=== PATIENT | male | born 1970 | race Caucasian/White ===

== ENCOUNTER → 2018-02-11 | Day surgery (SDC) | payer OTHER, SELFPAY | END | disposition home or self-care (01) | PROVIDERS: Visit Provider Orthopaedic Surgery | DX: M50.222 Other cervical disc displacement at C5-C6 level (principal); M48.02 Spinal stenosis, cervical region; S16.1XXA Strain of muscle, fascia and tendon at neck level, initial encounter; W22.8XXA Striking against or struck by other objects, initial encounter; I10 Essential (primary) hypertension; J45.909 Unspecified asthma, uncomplicated | CPT/HCPCS: 22856; 72040; 76001; C1776; J0330; J0690; J1100; J1170; J2250; J2270; J2405; J2704; J3010 ==

== ENCOUNTER → 2018-08-25 15:19 | Outpatient (REF) | payer OTHER, MEDICAID, SELFPAY ==
[2018-08-25 15:40] LABS: Influenza A and B by PCR Rapid Negative (Negative)
== END ==
LOC: LAB 15:19
PROVIDERS: Visit Provider Family Medicine
DX: R11.0 Nausea (principal)
CPT/HCPCS: 87400

== ENCOUNTER → 2018-09-28 11:34 | Outpatient (CLI) | payer OTHER, MEDICAID, SELFPAY ==
--- NOTE | 2018-09-28 | DI.CT.S_ITS ---
PROCEDURE: CT CERVICAL SPINE WO CON INDICATIONS: Posterior neck and left shoulder pain TECHNIQUE: Noncontrast 3 mm thick sections acquired from the skull base to the T4 level. Sagittal and coronal reformats were then constructed. For radiation dose reduction, the following was used: automated exposure control, adjustment of mA and/or kV according to patient size. COMPARISON: [facility], CT, C-SPINE WITHOUT CONTRAST, 05/12/2017, 13:55. [facility] [place], CR, XR CERVICAL SPINE 2 OR 3 VIEWS, 09/22/2018, 8:31. FINDINGS: Image quality: Excellent. Bones: No fractures or dislocations. There is straightening of normal cervical spine curvature. Visualized superior ribs are intact. Postsurgical changes compatible C5-C6 intervertebral disc prosthesis placement noted. C5-C6 prosthetic disc is intact and stable in position. No lucencies are identified at the bone hardware interface. Mild to moderate C4-C5 degenerative disc changes are noted. Spinal canal is normal caliber. No neural foraminal narrowing. No definite neural impingement. Soft tissues: Prevertebral soft tissues are normal in thickness. No paravertebral hematomas. No apical pneumothoraces. IMPRESSION: 1. Status post C5-C6 disc replacement surgery. 2. Mild to moderate C4-C5 degenerative disc disease. 3. No central canal narrowing. 4. No neural foraminal narrowing. 5. No definite neural impingement. Dictated by: Yina Cota MD, PhD on 09/28/2018 at 15:16 Approved by: Yina Cota MD, PhD on 09/28/2018 at 15:22
== END ==
PROVIDERS: Visit Provider Orthopaedic Surgery
DX: M50.121 Cervical disc disorder at C4-C5 level with radiculopathy (principal); M25.512 Pain in left shoulder
CPT/HCPCS: 72125

== ENCOUNTER → 2018-09-29 09:42 | Outpatient (CLI) | payer OTHER, MEDICAID, SELFPAY ==
--- NOTE | 2018-09-29 | DI.RAD.S_ITS ---
PROCEDURE: XR CHEST 2V INDICATIONS: CHRONIC COUGH TECHNIQUE: 2 views of the chest were acquired. COMPARISON: [facility], , CHEST 1 VIEW, 06/25/2008, 17:27. FINDINGS: Surgical changes and devices: Intervertebral spacer in lower cervical spine is seen new since previous study. Lungs and pleura: No pleural effusions or pneumothorax. Lungs are clear. Mediastinum: Mediastinal contours are normal. Heart size is enlarged. Bones and chest wall: No suspicious bony abnormalities. Soft tissues appear unremarkable. IMPRESSION: No acute cardiopulmonary pathology. Dictated by: Alexander Andino M.D. on 09/29/2018 at 11:39 Approved by: Alexander Andino M.D. on 09/29/2018 at 11:40
== END ==
PROVIDERS: Visit Provider Family Medicine
DX: R05 Cough (principal)
CPT/HCPCS: 71046

== ENCOUNTER 2018-10-04 12:34 | Emergency (ER) | payer OTHER, MEDICAID, SELFPAY ==
[2018-10-04 13:05] VITALS: BP 158/100; PULSE 90; RESP 14; TEMP 36.4; O2SAT 97
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
[2018-10-04] MEDS: MORPHINE 4 MG/ML INJ SUBCUT (14:58)
[2018-10-04 15:20] VITALS: BP 151/88; PULSE 84; RESP 18; O2SAT 95
[2018-10-04] MEDS: HYDROCODONE/ACET 5/325 TABLET 2 TAB PO (16:01)
[2018-10-04 16:41] VITALS: BP 158/92; PULSE 79; RESP 14; O2SAT 98
== END 2018-10-04 16:41 | disposition home or self-care (01) ==
PROVIDERS: Emergency Provider Emergency Medicine
DX: S02.32XA Fracture of orbital floor, left side, initial encounter for closed fracture (principal); Y04.0XXA Assault by unarmed brawl or fight, initial encounter
CPT/HCPCS: 70450; 70486; 71046; 99282; 99284; J2270

== ENCOUNTER 2018-11-15 13:22 | Day surgery (SDC) | payer OTHER, MEDICAID, SELFPAY ==
[2018-10-01 08:27] VITALS: BMI 29.5
[2018-11-15] VITALS (11 sets, daily range): BP systolic 132–167; BP diastolic 81–107; PULSE 76–95; RESP 12–20; TEMP 36.2–36.8; O2SAT 90–99; BMI 29.8
[2018-11-15] MEDS: LACTATED RINGERS 1,000 ML 42 ML IV (14:00)
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
[2018-11-15] MEDS: fentaNYL 100 MCG/2 ML INJ 50 MCG IV (14:54)
[2018-11-15] MEDS: MIDAZOLAM 2 MG/2 ML VIAL 1 MG IV (14:54)
--- NOTE | 2018-11-15 15:25 | SUR.PREOP ---
Block start time [1502] . Monitoring initiated and maintained throughout procedure. Oxygen and medications given per anesthesiologist instructions. Patient remained stable throughout procedure, no adverse reactions noted. Block end time [1516]. patient at bedside during procedure. Transferred to OR via stretcher at 1524. handoff report given to Víctor Yung RN by Cathi Gray RN
[2018-11-15] MEDS: CEFAZOLIN 2 GM/100 ML FROZ.PIGGY IV (15:29)
[2018-11-15] MEDS: SODIUM CHLORIDE IRRIG SOLUTION 3,000 ML, EPINEPHrine 1 MG IRR (15:59)
[2018-11-15] MEDS: BUPIVACAINE 0.5% W/ EPI (PF) VIAL 30 ML INJ (16:02)
--- NOTE | 2018-11-15 16:44 | PM.OP.1 ---
Operative Date/Time/Diagnoses Date of procedure: 11/15/18 Time of procedure: 16:44 Pre-op diagnosis: Left shoulder labral tear with cyst formation Post-op diagnosis: same Procedure & Clinicians Procedure: 1. Left shoulder arthroscopic labral repair 2. Suprascapular nerve block by surgeon for postoperative pain control Same procedure as scheduled: Yes Indications: The patient is a 47-year-old gentleman who was injured at work when a ?story pole? fell against his shoulder and neck. He has had persistent left shoulder pain despite his neck issues being addressed by appropriate intervention by Dr. Blair. His MRI shows an inferior labral tear with paralabral cyst formation. After failure of nonoperative management he has requested surgical intervention. The risks benefits and alternatives of surgery were discussed with him. These risks included but were not limited to: Failure to improve either pain or function, infection, nerve damage particularly to the axillary nerve, stiffness, deep venous thrombosis, pulmonary embolism, stroke, myocardial infarction, permanent paralysis and . Surgeon: Jono Alfonso [employer] Consultant: Dior Gooden Click Yes if Unassisted: No Anesthesia Type: General, Peripheral nerve block and Local Operative Notes Findings: 1. Glenohumeral cartilage with minimal fraying of the central portion of the glenoid. 2. Glenoid labrum with separation in the inferior portion between 5 and 7:00 a.m. going around the inferior aspect of the glenoid 3. Intact glenohumeral ligament 4. Intact subscapularis 5. Intact biceps 6. Intact supraspinatus 7. Intact infraspinatus 8. Normal appearing axillary pouch 9. Examination under anesthesia notable for normal range of motion and no evidence for pathologic laxity. Closure Type: primary Specimen(s): none sent Implants & Drains: Two Arthrex Knotless SutureTak Peek anchors. Applied: implant(s) Estimated Blood Loss (mL): 5 Blood products transfused: none Procedure in detail: The patient was seen in the preoperative area where he identified the left shoulder as the operative site and renewed his consent. The left shoulder was marked with my initials. He received preoperative antibiotics and underwent an interscalene block. He was taken to the operating room and placed on the operating room table in the supine position. His shoulders were examined under anesthesia with result given above. During the exam under anesthesia his left shoulder was twitching quite remarkably and therefore a ventrally an additional suprascapular nerve block was performed due to the possibility that the interscalene block was not working. This was performed with 10 mL 0.5% Marcaine after prepping the shoulder. After his exam under anesthesia the patient was placed in the right lateral decubitus position with an axillary roll and padding for all pressure points. He was stabilized in this position using the stoner bag. The left arm was prepared for the fingertips to the base the neck with ChloraPrep in the usual fashion and placed in 10 lb of balanced skin suspension. Subcutaneous landmarks were outlined on the skin with a marking pen and the suprascapular nerve block performed. Portal sites were selected and posterior portal created for the arthroscope. Diagnostic arthroscopy ensued with the result given above. An anterior superior portal was created for the 5.5 mm cannula. A probe was placed through this cannula and the anterior labral tear probed and proven to be pathologic. A liberator knife was then inserted and used to mobilize the labrum. A shaver was used to abrade the anterior rim of the glenoid to bleeding bone. An anterior inferior portal was created for the 8.5 mm working cannula. A single anchor was placed in the 7:00 position and the knotless suture placed around the labrum using a suture shuttle technique and used to tighten the repair. This was confirmed as being satisfactory using the probe. The anterior superior portal and the posterior portal were then swapped using switching sticks and the 8.5 mm cannula was placed through the posterior portal. The posterior portion of the tear was prepared using the liberator knife and the shaver. Percutaneous technique was used to place an anchor at the 5 o'clock position posterior inferiorly. A suture shuttle technique was used to pass this suture and it was tightened to complete the repair. This appeared to provide appropriate re-positioning of the labrum against the glenoid rim. All arthroscopic equipment was then removed. The wounds were closed with 4 0 Monocryl and Steri-Strips. Subcutaneous tissues were infiltrated with additional 0.5% Marcaine for postoperative pain control. Dressings of sterile 4x4s, an ABD and an adhesive dressing were applied followed by sling and the patient was transported to the recovery room in good condition having tolerated the procedure well. Complications: none Condition: stable Disposition: PACU Plan for aftercare: The patient will be maintained on a standard [employer] repair protocol. He will remain in a sling except for hygiene until his 1st follow-up in 2 weeks.
[2018-11-15] MEDS: HYDROMORPHONE 2 MG INJ 0.5 MG IV ×4 (17:07→17:41)
[2018-11-15] MEDS: LORazepam 2 MG/ML SYRINGE 0.5 MG IV (17:12)
[2018-11-15] MEDS: PREGABALIN 75 MG CAPSULE PO (17:19)
[2018-11-15] MEDS: ACETAMINOPHEN IV 1,000 MG/100 ML VIAL 400 MG IV (17:23)
[2018-11-15] MEDS: OXYCODONE IR 5 MG TABLET PO (17:45)
[2018-11-15] MEDS: hydrOXYzine pamoate 25 MG CAPSULE PO (18:12)
--- NOTE | 2018-11-15 18:43 | SUR.PHASEII ---
Pt sat up on the side of the bed. Vomited 100mls light green fluid. Pt expressed nausea resolved. Stood to void, dressed with assistance from spouse. Sling placed for comfort. Deana sarah.
== END 2018-11-15 18:32 | disposition home or self-care (01) ==
PROVIDERS: PCP Family Medicine; Visit Provider Orthopaedic Surgery
PROC: 0RQK4ZZ Repair Left Shoulder Joint, Percutaneous Endoscopic Approach (ICD-10-PCS; CPT 29807; principal; 2018-11-15 15:15)
DX: S43.432A Superior glenoid labrum lesion of left shoulder, initial encounter (principal); G89.18 Other acute postprocedural pain; G47.33 Obstructive sleep apnea (adult) (pediatric); J45.909 Unspecified asthma, uncomplicated; I10 Essential (primary) hypertension; W20.8XXS Other cause of strike by thrown, projected or falling object, sequela
CPT/HCPCS: 29806; 64415; J0131; J0171; J0360; J0690; J1100; J1170; J2060; J2250; J2704; J3010

== ENCOUNTER 2019-04-18 16:45 | Outpatient (RCR) | payer OTHER, MEDICAID, SELFPAY ==
--- NOTE | 2018-12-01 15:00 | PT.OIE ---
Current Diagnoses Superior glenoid labrum lesion of left shoulder, subsequent encounter (12/01/18) Past Medical History (Last Updated 11/08/18 @ 15:13 by Kristin Broussard RN) Anxiety (Acute) Concussion (Acute) Difficult airway for intubation (Acute) GERD (gastroesophageal reflux disease) (Acute) Generalized headaches (Acute) Hand fracture (Acute) Head trauma (Acute ~10/04/18) Hearing impaired (Acute) Jaw fracture (Acute ~2006) Numbness (Acute) AVILA (obstructive sleep apnea) (Acute) Tear of left glenoid labrum (Acute) Past Surgical History (Last Updated 10/01/18 @ 08:36 by Rosita Ferguson RN) Hx of cervical discectomy (Acute 02/13/18) Provider Visit Care Team Role Provider Type Mau Hood MD Primary Care Provider Physician Specialty: Family Practice Address: [address] [place] [address], [id number] Email: Jono Alfonso MD Attending Provider Physician Specialty: Orthopedic Surgery Address: [address] [place] [address], [phone] Email: [email or web address] Physical Therapy Initial Evaluation PT-OP-A Visit Information Start: 12/01/18 10:07 Freq: Status: Active Protocol: Document 12/01/18 10:09 ZOILA (Rec: 12/01/18 10:26 ZOILA [id number]) Out-Patient Physical Therapy Visit Information Visit Information Visit Type Initial Evaluation Visit Start Time 08:15 Visit Stop Time 08:55 Total Visit Minutes 40 Visit Number 1 Evaluation Information Evaluation Date 12/01/18 Precautions Precautions Post labral reconstruction dr. Alfonso exercises protocol PT-OP-B Current Condition Start: 12/01/18 10:07 Freq: Status: Active Protocol: Document 12/01/18 10:09 EA (Rec: 12/01/18 10:26 EA [id number]) Current Condition History of Current Condition Onset Date S/P 11/15/18 Left shoulder arthroscopic labral tear Current Complaints Left shoulder pain and weakness History of Current Condition Patient had work injury in 2016 when 2x/4 wood fell and hit his left shoulder and neck . Patient underwent cervical surgery on April/2017 due to shoulder numbness and weakness per patient. Pt reports underwent formal PT after that surgery and went well. Pt today is 2 weeks post op L shoulder labral tear arthroscopic repair. Pt is has dr. Alfonso exercises protocol to follow. Prior Treatments and Tests S/P left shoulder arthroscopic labral repair 11/15/18 Future Testing and Treatments Planned None identified Treatment Goals Patient/Caregiver Goals Patient wants to get back to previous function; states I don't assume I would get back to previous level, but at least not disable. 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- Recreation/Hobbies No limitation 1 1/2 years ago Current Functional Impairments (Reported) Functional Limitations- ADL's Independent; unable to drive at this time Functional Limitations- Mobility/Gait Indep Functional Limitations- Work/School On disability since the last neck/shoulder injury 2016 Functional Limitations- Recreation/ Unable Hobbies PT-OP-C Subjective Start: 12/01/18 10:07 Freq: Status: Active Protocol: Document 12/01/18 10:09 EA (Rec: 12/01/18 10:26 EA [id number]) OP-PT Subjective Patient Comments Patient Comments Patient wants to get back to previous function; states I don't assume I would get back to previous level, but at least not disable. [ End ] Patient Questionnaires Quick Dash- Upper Extremity Quick Dash UE Score 80 Quick Dash UE Impairment 80 to 99% Impaired (Score 80- 99) OP-PT Pain Assessment Location Left Anterior Proximal Shoulder Intensity 7 Scale Used Numeric (1 - 10) Description Tender Tightness Throbbing Frequency Frequent Pain Aggravating Factors Changing Position ADL's Activity Other Pain Alleviating Factors Oxycodone Home Pain Medication Use Pain Medications Used Yes Home Pain Medication Frequency Oxycodone Pain Behaviors Pain Behaviors Guarding Wincing PT-OP-E Functional Tests Start: 12/01/18 10:07 Freq: Status: Active Protocol: Document 12/01/18 10:29 EA (Rec: 12/01/18 13:00 EA [id number]) Functional Tests Garlandey's Scratch Test Action 1: The subject is instructed to touch the opposite shoulder with his/her hand. This motion checks Glenohumeral adduction, internal rotation , horizontal adduction and scapular protraction Action 2: The subject is instructed to place his/her arm overhead and reach behind the neck to touch his/her upper back. This motion checks Glenohumeral abduction, external rotation and scapular upward rotation and elevation. Action 3: The subject puts his/her hand on the lower back and reaches upward as far as possible. This motion checks glenohumeral adduction, internal rotation and scapular retraction with downward rotation Action 1- Left Unable Action 1- Right behind opposite shoulder Action 2- Left unable Action 2- Right T1 Action 3- Left Unable Action 3- Right T9 PT-OP-F Manual Assessment Start: 12/01/18 10:07 Freq: Status: Active Protocol: Document 12/01/18 10:29 EA (Rec: 12/01/18 13:00 EA [id number]) Manual Assessments Soft Tissue Assessment Soft Tissue Mobility Assessment unable to assess due to muscle guarding and pain Joint Mobility Assessment Joint Mobility Assessment Unable to assess due to muscle guarding PT-OP-J Posture/Palpation/Skin Start: 12/01/18 10:07 Freq: Status: Active Protocol: Document 12/01/18 10:29 EA (Rec: 12/01/18 13:00 EA [id number]) Posture Evaluation Position Standing Evaluation View post/lat Head/C-Spine Posture Neutral Position T-Spine Posture Neutral Shoulder Posture Neutral Scapula Posture (L) Neutral (L) Protracted Arm Posture (L) Neutral (R) Neutral Palpation Assessment Location One Palpation Location Left Anterior upper and lower, posterior lower shoulder Palpation Findings Soft Tissue Tightness Muscle Guarding Tenderness Palpation Details Grade 3/4 tenderness with muscle guarding PT-OP-K Range of Motion Start: 12/01/18 10:07 Freq: Status: Active Protocol: Document 12/01/18 10:29 EA (Rec: 12/01/18 13:00 EA [id number]) Shoulder Goniometric Range of Motion Shoulder Measured in Degrees Left Passive Shoulder ROM WFL Yes Testing Position supine sitting Flexion 25 Extension 40 Abduction 30 Right Active Shoulder ROM WFL Yes Shoulder ROM Limitations Shoulder ROM Limitations Soft Tissue Tightness Pain Comments Other shoulder ROM is not tested due to healing pre- cautions Elbow/Forearm Range of Motion Elbow/Forearm Measured in Degrees Left Active Elbow/Forearm ROM WFL Yes Wrist Goniometric Range of Motion Wrist Measured in Degrees Left Wrist ROM WFL Yes PT-OP-M Strength Start: 12/01/18 10:07 Freq: Status: Active Protocol: Document 12/01/18 10:29 EA (Rec: 12/01/18 13:00 EA [id number]) Scapula Strength Scapula Manual Muscle Testing Left Elevation (C4) 3+ Fair+ Adduction 3+ Fair+ Abduction 3+ Fair+ Depression 3+ Fair+ Reason Not Measured Orthopedic Precautions Pain Comments Pain increased with higher resistance Shoulder Strength Shoulder Manual Muscle Testing Right Reason Not Measured WFL Left Reason Not Measured Orthopedic Precautions PT-OP-Q Treatments Start: 12/01/18 10:07 Freq: Status: Active Protocol: Document 12/01/18 10:29 EA (Rec: 12/01/18 13:00 EA [id number]) Self-Care/Home Management Treatment Education Patient Education Home Exercise Program Joint Protection Pain Management Safety Other Education Advised pain control to prevent high BP elevation. Explained exercise progression throughout treatment course ( Surgeon's labral treatment protocol). PT-OP-T Assessment and Plan Start: 12/01/18 10:07 Freq: Status: Active Protocol: Document 12/01/18 10:29 EA (Rec: 12/01/18 13:00 EA [id number]) Physical Therapy Assessment Rehab Potential Rehabilitation Potential Fair Evaluation Complexity Number of Personal Factors/Comorbidities 1-2 Number of Body Systems Impaired 3 Clinical Presentation at Evaluation Evolving Impairments Impairments Activity Tolerance Pain Posture ROM Soft Tissue Mobility Strength Goals Four Impairment Impaired left shoulder strength Prison Goal (LTG) Patient will have functional ADL strength 3 plus -4/5 with pain rated of 2/10 LTG Duration 5 wks Three Impairment Quick Dash score of 80 Prison Goal (LTG) Patient will have quick Dash score of less than 40 LTG Duration 6 wks Two Impairment Impaired shoulder ROM Burn Nurse Goal (LTG) Patient will reach functional shoulder ROM to enhance shoulder active mobility LTG Duration 4 wks One Impairment NO HEP in place Burn Nurse Goal (LTG) Patient will perform HEP independent and safe. LTG Duration 3 wks. Assessment Summary Assessment Patient is a s/p 11/15/2018 left arthroscopic labral tear repair with no secondary healing complication. Today patient exhibited quite moderate muscle guarding with pain increased through PROM of GH and AROM of scapular and elbow joints. Grade 3/4 tenderness noted on both anterior/ posterior left shoulder but no indication of active inflammation. Patient is quite apprehended throughout objective measurement and as well during HEP demonstration. BP is quite elevated 160/110 mmhg pre- and post evaluation which I recommended to see his primary doctor to address the issue prior to next PT appointment. ADL's and other functional L arm movement is limited at this time and therefore patient requires skilled PT for patient to return to functional level safely. Physical Therapy Plan Frequency and Duration Frequency of Treatment 2x/Week Duration of Treatment 8 wks Plan of Care Start Date 12/01/18 Plan of Care End Date 01/26/19 Therapeutic Interventions Therapeutic Interventions Home Exercise Program Joint Mobilizations Manual Therapy Patient/Caregiver Education Self-Care/Home Management Soft Tissue Mobilization Taping Therapeutic Exercises Modalities Cold Pack/Ice Massage Electric Stimulation Ultrasound Next Visit Focus/Plan Next Note Type Treatment Note Next Visit Plan Please follow Surgeon's shoulder labral repair protocol attached on file(PROM Increased ROM, decreased pain )
--- NOTE | 2018-12-01 15:00 | PT.OPPOC ---
Current Diagnoses Superior glenoid labrum lesion of left shoulder, subsequent encounter (12/01/18) Provider Visit Care Team Role Provider Type Mau Hood MD Primary Care Provider Physician Specialty: Family Practice Address: [address] [place] [address], [id number] Email: Jono Alfonso MD Attending Provider Physician Specialty: Orthopedic Surgery Address: [address] [place] [address], [id number] Email: [email or web address] Plan Of Care PT-OP-T Assessment and Plan Start: 12/01/18 10:07 Freq: Status: Active Protocol: Document 12/01/18 10:29 ZOILA (Rec: 12/01/18 13:00 EA [id number]) Physical Therapy Assessment Rehab Potential Rehabilitation Potential Fair Evaluation Complexity Number of Personal Factors/Comorbidities 1-2 Number of Body Systems Impaired 3 Clinical Presentation at Evaluation Evolving Impairments Impairments Activity Tolerance Pain Posture ROM Soft Tissue Mobility Strength Goals Four Impairment Impaired left shoulder strength Child & Adolescent Psychiatrist Goal (LTG) Patient will have functional ADL strength 3 plus to -4/5 with pain rated of 2/10 LTG Duration 5 wks Three Impairment Quick Dash score of 80 Child & Adolescent Psychiatrist Goal (LTG) Patient will have quick Dash score of less than 40 LTG Duration 6 wks Two Impairment Impaired shoulder ROM Shelter Goal (LTG) Patient will reach functional shoulder ROM to enhance shoulder active mobility LTG Duration 4 wks One Impairment NO HEP in place Child & Adolescent Psychiatrist Goal (LTG) Patient will perform HEP independent and safe. LTG Duration 3 wks. Assessment Summary Assessment Patient is a s/p 11/15/2018 left arthroscopic labral tear repair with no secondary healing complication. Today patient exhibited quite moderate muscle guarding with pain increased through PROM of GH and AROM of scapular and elbow joints. Grade 3/4 tenderness noted on both anterior/posterior left shoulder but no indication of active inflammation. Patient is quite apprehended throughout objective measurement and as well during HEP demonstration. BP is quite elevated 160/110 mmhg pre- and post eval which I recommended to see his primary doctor to address the issue prior to next PT appointment. ADL's and other functional L arm movement is limited at this time and therefore patient requires skilled PT for patient to return to functional level safely. Physical Therapy Plan Frequency and Duration Frequency of Treatment 2x/Week Duration of Treatment 8 wks Plan of Care Start Date 12/01/18 Plan of Care End Date 01/26/19 Therapeutic Interventions Therapeutic Interventions Home Exercise Program Joint Mobilizations Manual Therapy Patient/Caregiver Education Self-Care/Home Management Soft Tissue Mobilization Taping Therapeutic Exercises Modalities Cold Pack/Ice Massage Electric Stimulation Ultrasound Next Visit Focus/Plan Next Note Type Treatment Note Next Visit Plan Please follow Surgeon's shoulder labral repair protocol attached on file(PROM Increased ROM, decrease pain) Plan of Care Dates Plan of Care Start Date 12/01/18 Plan of Care End Date 01/26/19 Please Sign and Return: I have reviewed this Plan of Care and certify that the skilled therapy services above are required to meet the patient?s needs. Physician Signature Date Printed Name and Credentials Clinical Instructor Signature Printed Name and Credentials
--- NOTE | 2018-12-07 11:04 | PT.OTN ---
Current Diagnoses Superior glenoid labrum lesion of left shoulder, subsequent encounter (12/07/18) Physical Therapy Treatment Note PT-OP-A Visit Information Start: 12/01/18 10:07 Freq: Status: Active Protocol: Document 12/07/18 10:45 EA (Rec: 12/07/18 11:04 EA [id number]) Out-Patient Physical Therapy Visit Information Visit Information Visit Type Treatment Note Visit Start Time 10:30 Visit Stop Time 11:10 Total Visit Minutes 38 Visit Number 2 PT-OP-B Current Condition Start: 12/01/18 10:07 Freq: Status: Active Protocol: Document 12/01/18 10:09 EA (Rec: 12/01/18 10:26 EA [id number]) Current Condition History of Current Condition Onset Date S/P 11/15/18 Left shoulder arthroscopic labral tear Current Complaints Left shoulder pain and weakness History of Current Condition Patient had work injury in 2016 when 2x/4 wood fell and hit his left shoulder and neck . Patient underwent cervical surgery on April/2017 due to shoulder numbness and weakness per patient. Pt reports underwent formal PT after that surgery and went well. Pt today is 2 weeks post op L shoulder labral tear arthroscopic repair. Pt is has dr. Alfonso exercises protocol to follow. Prior Treatments and Tests S/P left shoulder arthroscopic labral repair 11/15/18 Future Testing and Treatments Planned None identified Treatment Goals Patient/Caregiver Goals Patient wants to get back to previous function; states I don't assume I would get back to previous level, but at least not disable. 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- Recreation/Hobbies No limitation 1 1/2 years ago Current Functional Impairments (Reported) Functional Limitations- ADL's Independent; unable to drive at this time Functional Limitations- Mobility/Gait Indep Functional Limitations- Work/School On disability since the last neck/shoulder injury 2016 Functional Limitations- Recreation/ Unable Hobbies PT-OP-C Subjective Start: 12/01/18 10:07 Freq: Status: Active Protocol: Document 12/07/18 10:45 EA (Rec: 12/07/18 11:04 EA [id number]) OP-PT Subjective Patient Comments Patient Comments Pt reeived ambulating with sling on; states he has been compliant with HEP and went to his doctor for HTN pills. Patient reports he droved today and out of sling. PT-OP-E Functional Tests Start: 12/01/18 10:07 Freq: Status: Active Protocol: Document 12/01/18 10:29 EA (Rec: 12/01/18 13:00 EA [id number]) Functional Tests Apley's Scratch Test Action 1: The subject is instructed to touch the opposite shoulder with his/her hand. This motion checks Glenohumeral adduction, internal rotation , horizontal adduction and scapular protraction Action 2: The subject is instructed to place his/her arm overhead and reach behind the neck to touch his/her upper back. This motion checks Glenohumeral abduction, external rotation and scapular upward rotation and elevation. Action 3: The subject puts his/her hand on the lower back and reaches upward as far as possible. This motion checks glenohumeral adduction, internal rotation and scapular retraction with downward rotation Action 1- Left Unable Action 1- Right behind opposite shoulder Action 2- Left unable Action 2- Right T1 Action 3- Left Unable Action 3- Right T9 PT-OP-F Manual Assessment Start: 12/01/18 10:07 Freq: Status: Active Protocol: Document 12/01/18 10:29 EA (Rec: 12/01/18 13:00 EA [id number]) Manual Assessments Soft Tissue Assessment Soft Tissue Mobility Assessment unable to assess due to muscle guarding and pain Joint Mobility Assessment Joint Mobility Assessment Unable to assess due to muscle guarding PT-OP-J Posture/Palpation/Skin Start: 12/01/18 10:07 Freq: Status: Active Protocol: Document 12/01/18 10:29 EA (Rec: 12/01/18 13:00 EA [id number]) Posture Evaluation Position Standing Evaluation View post/lat Head/C-Spine Posture Neutral Position T-Spine Posture Neutral Shoulder Posture Neutral Scapula Posture (L) Neutral (L) Protracted Arm Posture (L) Neutral (R) Neutral Palpation Assessment Location One Palpation Location Left Anterior upper and lower, posterior lower shoulder Palpation Findings Soft Tissue Tightness Muscle Guarding Tenderness Palpation Details Grade 3/4 tenderness with muscle guarding PT-OP-K Range of Motion Start: 12/01/18 10:07 Freq: Status: Active Protocol: Document 12/01/18 10:29 EA (Rec: 12/01/18 13:00 EA [id number]) Shoulder Goniometric Range of Motion Shoulder Measured in Degrees Left Passive Shoulder ROM WFL Yes Testing Position supine sitting Flexion 25 Extension 40 Abduction 30 Right Active Shoulder ROM WFL Yes Shoulder ROM Limitations Shoulder ROM Limitations Soft Tissue Tightness Pain Comments Other shoulder ROM is not tested due to healing pre- cautions Elbow/Forearm Range of Motion Elbow/Forearm Measured in Degrees Left Active Elbow/Forearm ROM WFL Yes Wrist Goniometric Range of Motion Wrist Measured in Degrees Left Wrist ROM WFL Yes PT-OP-M Strength Start: 12/01/18 10:07 Freq: Status: Active Protocol: Document 12/01/18 10:29 EA (Rec: 12/01/18 13:00 EA [id number]) Scapula Strength Scapula Manual Muscle Testing Left Elevation (C4) 3+ Fair+ Adduction 3+ Fair+ Abduction 3+ Fair+ Depression 3+ Fair+ Reason Not Measured Orthopedic Precautions Pain Comments Pain increased with higher resistance Shoulder Strength Shoulder Manual Muscle Testing Right Reason Not Measured WFL Left Reason Not Measured Orthopedic Precautions PT-OP-Q Treatments Start: 12/01/18 10:07 Freq: Status: Active Protocol: Document 12/07/18 10:45 EA (Rec: 12/07/18 11:04 EA [id number]) Therapeutic Exercises Supine Exercises 2 Supine Exercise Name Shoulder gentle PROM: horiz ABD/ADD Reps/Minutes x 10 reps Comments pain free range 1 Supine Exercise Name Shoulder gentle PROM: flexion and abduction Reps/Minutes x 10 reps Comments pain free range Sitting Exercises 4 Sitting Exercise Name Elbow: F/E and pronation supination Reps/Minutes x 15 reps 3 Sitting Exercise Name Scap retraction Reps/Minutes x 10 reps 2 Sitting Exercise Name scap protraction Reps/Minutes x 10 reps 1 Sitting Exercise Name Sitted shoulder scapular elevation Reps/Minutes 10 reps Manual Therapy Treatment Soft Tissue Mobilization 1 Body Location left shoulder Mobilization Type Cross-Friction Myofascial Release Rolling Intensity/Depth Superficial Body Position Supine Comments Patient is hypersensitive. Facial grimace noted with light intensity PT-OP-R Modalities Start: 12/01/18 10:07 Freq: Status: Active Protocol: Document 12/07/18 10:45 EA (Rec: 12/07/18 11:04 EA [id number]) Hot Pack/Cold Pack Treatment Cold Pack Location left shoulder Treatment Duration (minutes) 15 Patient Tolerance Good PT-OP-T Assessment and Plan Start: 12/01/18 10:07 Freq: Status: Active Protocol: Document 12/07/18 10:45 EA (Rec: 12/07/18 11:04 EA [id number]) Physical Therapy Assessment Assessment Summary Assessment Patient unable to tolerate PROM more than 10 reps and is shoulder guarded in all shoulder F/Abd PROM. Facial grimace noted with occasional cramps even with elbow and scapular AROM. Patient not progressing well to recommended ROM at this time due to hypotolerance to pain. I recommended to take recommended pain medication prior to therapy to increase pain tolerance. BP were taken prior to session and is quite better (120/80) with HTN pills . Physical Therapy Plan Next Visit Focus/Plan Next Note Type Treatment Note
--- NOTE | 2018-12-09 12:05 | PT.OTN ---
Current Diagnoses Superior glenoid labrum lesion of left shoulder, subsequent encounter (12/09/18) Physical Therapy Treatment Note PT-OP-A Visit Information Start: 12/01/18 10:07 Freq: Status: Active Protocol: Document 12/09/18 10:22 EA (Rec: 12/09/18 10:30 EA [id number]) Out-Patient Physical Therapy Visit Information Visit Information Visit Type Treatment Note Visit Start Time 09:45 Visit Stop Time 10:30 Total Visit Minutes 45 Visit Number 3 PT-OP-B Current Condition Start: 12/01/18 10:07 Freq: Status: Active Protocol: Document 12/01/18 10:09 EA (Rec: 12/01/18 10:26 EA [id number]) Current Condition History of Current Condition Onset Date S/P 11/15/18 Left shoulder arthroscopic labral tear Current Complaints Left shoulder pain and weakness History of Current Condition Patient had work injury in 2016 when 2x/4 wood fell and hit his left shoulder and neck . Patient underwent cervical surgery on April/2017 due to shoulder numbness and weakness per patient. Pt reports underwent formal PT after that surgery and went well. Pt today is 2 weeks post op L shoulder labral tear arthroscopic repair. Pt is has dr. Alfonso exercises protocol to follow. Prior Treatments and Tests S/P left shoulder arthroscopic labral repair 11/15/18 Future Testing and Treatments Planned None identified Treatment Goals Patient/Caregiver Goals Patient wants to get back to previous function; states I don't assume I would get back to previous level, but at least not disable. 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- Recreation/Hobbies No limitation 1 1/2 years ago Current Functional Impairments (Reported) Functional Limitations- ADL's Independent; unable to drive at this time Functional Limitations- Mobility/Gait Indep Functional Limitations- Work/School On disability since the last neck/shoulder injury 2016 Functional Limitations- Recreation/ Unable Hobbies PT-OP-C Subjective Start: 12/01/18 10:07 Freq: Status: Active Protocol: Document 12/09/18 10:22 EA (Rec: 12/09/18 10:30 EA [id number]) OP-PT Subjective Patient Comments Patient Comments Pt reports compliant with HEP and out of sling except when sleeping and unfamiliar places /activities. Pt reports pain after manual PT on last session and forced him to take pain meds. PT-OP-E Functional Tests Start: 12/01/18 10:07 Freq: Status: Active Protocol: Document 12/01/18 10:29 EA (Rec: 12/01/18 13:00 EA [id number]) Functional Tests Apley's Scratch Test Action 1: The subject is instructed to touch the opposite shoulder with his/her hand. This motion checks Glenohumeral adduction, internal rotation , horizontal adduction and scapular protraction Action 2: The subject is instructed to place his/her arm overhead and reach behind the neck to touch his/her upper back. This motion checks Glenohumeral abduction, external rotation and scapular upward rotation and elevation. Action 3: The subject puts his/her hand on the lower back and reaches upward as far as possible. This motion checks glenohumeral adduction, internal rotation and scapular retraction with downward rotation Action 1- Left Unable Action 1- Right behind opposite shoulder Action 2- Left unable Action 2- Right T1 Action 3- Left Unable Action 3- Right T9 PT-OP-F Manual Assessment Start: 12/01/18 10:07 Freq: Status: Active Protocol: Document 12/01/18 10:29 EA (Rec: 12/01/18 13:00 EA [id number]) Manual Assessments Soft Tissue Assessment Soft Tissue Mobility Assessment unable to assess due to muscle guarding and pain Joint Mobility Assessment Joint Mobility Assessment Unable to assess due to muscle guarding PT-OP-J Posture/Palpation/Skin Start: 12/01/18 10:07 Freq: Status: Active Protocol: Document 12/01/18 10:29 EA (Rec: 12/01/18 13:00 EA [id number]) Posture Evaluation Position Standing Evaluation View post/lat Head/C-Spine Posture Neutral Position T-Spine Posture Neutral Shoulder Posture Neutral Scapula Posture (L) Neutral (L) Protracted Arm Posture (L) Neutral (R) Neutral Palpation Assessment Location One Palpation Location Left Anterior upper and lower, posterior lower shoulder Palpation Findings Soft Tissue Tightness Muscle Guarding Tenderness Palpation Details Grade 3/4 tenderness with muscle guarding PT-OP-K Range of Motion Start: 12/01/18 10:07 Freq: Status: Active Protocol: Document 12/01/18 10:29 EA (Rec: 12/01/18 13:00 EA [id number]) Shoulder Goniometric Range of Motion Shoulder Measured in Degrees Left Passive Shoulder ROM WFL Yes Testing Position supine sitting Flexion 25 Extension 40 Abduction 30 Right Active Shoulder ROM WFL Yes Shoulder ROM Limitations Shoulder ROM Limitations Soft Tissue Tightness Pain Comments Other shoulder ROM is not tested due to healing pre- cautions Elbow/Forearm Range of Motion Elbow/Forearm Measured in Degrees Left Active Elbow/Forearm ROM WFL Yes Wrist Goniometric Range of Motion Wrist Measured in Degrees Left Wrist ROM WFL Yes PT-OP-M Strength Start: 12/01/18 10:07 Freq: Status: Active Protocol: Document 12/01/18 10:29 EA (Rec: 12/01/18 13:00 EA [id number]) Scapula Strength Scapula Manual Muscle Testing Left Elevation (C4) 3+ Fair+ Adduction 3+ Fair+ Abduction 3+ Fair+ Depression 3+ Fair+ Reason Not Measured Orthopedic Precautions Pain Comments Pain increased with higher resistance Shoulder Strength Shoulder Manual Muscle Testing Right Reason Not Measured WFL Left Reason Not Measured Orthopedic Precautions PT-OP-Q Treatments Start: 12/01/18 10:07 Freq: Status: Active Protocol: Document 12/09/18 10:22 EA (Rec: 12/09/18 10:30 EA [id number]) Therapeutic Exercises Supine Exercises 4 Supine Exercise Name T-bar ABd Reps/Minutes x 15 reps x 2 Comments pain free range 3 Supine Exercise Name T-bar flexio Reps/Minutes x 15 reps x 2 Comments Pain free range 2 Supine Exercise Name Shoulder gentle PROM: horiz ABD/ADD Reps/Minutes x 10 reps Comments pain free range 1 Supine Exercise Name Shoulder gentle PROM: flexion and abduction Reps/Minutes x 10 reps Comments pain free range Sitting Exercises 4 Sitting Exercise Name Elbow: F/E and pronation supination Reps/Minutes x 15 reps 3 Sitting Exercise Name Scap retraction Reps/Minutes x 10 reps 2 Sitting Exercise Name scap protraction Reps/Minutes x 10 reps 1 Sitting Exercise Name Sitted shoulder scapular elevation Reps/Minutes 10 reps Standing Exercises 1 Standing Exercise Name Pnedulum exercise: F/EXT, side to side Reps/Minutes x 15 reps x 2 sets Comments 2 lbs wrist wght Self-Care/Home Management Treatment Education Patient Education Home Exercise Program Joint Protection Pain Management PT-OP-R Modalities Start: 12/01/18 10:07 Freq: Status: Active Protocol: Document 12/09/18 10:22 EA (Rec: 12/09/18 10:30 EA [id number]) Hot Pack/Cold Pack Treatment Cold Pack Location left shoulder Treatment Duration (minutes) 15 Patient Tolerance Good PT-OP-T Assessment and Plan Start: 12/01/18 10:07 Freq: Status: Active Protocol: Document 12/09/18 10:22 EA (Rec: 12/09/18 10:30 EA [id number]) Physical Therapy Assessment Assessment Summary Assessment Pt tolerated treatment with minor discomfort during AROM; requires cues not hold his breath and with pendulum exercises. Recommends new HEP exercises recieved and explained safety. Physical Therapy Plan Next Visit Focus/Plan Next Note Type Treatment Note Next Visit Plan progress according to protocol or as tolerated.
--- NOTE | 2018-12-13 10:28 | PT.OTN ---
Current Diagnoses Superior glenoid labrum lesion of left shoulder, subsequent encounter (12/13/18) Physical Therapy Treatment Note PT-OP-A Visit Information Start: 12/01/18 10:07 Freq: Status: Active Protocol: Document 12/13/18 10:12 EA (Rec: 12/13/18 10:21 EA [id number]) Out-Patient Physical Therapy Visit Information Visit Information Visit Type Treatment Note Visit Start Time 09:45 Visit Stop Time 10:33 Total Visit Minutes 48 Visit Number 3 PT-OP-B Current Condition Start: 12/01/18 10:07 Freq: Status: Active Protocol: Document 12/01/18 10:09 EA (Rec: 12/01/18 10:26 EA [id number]) Current Condition History of Current Condition Onset Date S/P 11/15/18 Left shoulder arthroscopic labral tear Current Complaints Left shoulder pain and weakness History of Current Condition Patient had work injury in 2016 when 2x/4 wood fell and hit his left shoulder and neck . Patient underwent cervical surgery on April/2017 due to shoulder numbness and weakness per patient. Pt reports underwent formal PT after that surgery and went well. Pt today is 2 weeks post op L shoulder labral tear arthroscopic repair. Pt is has dr. Alfonso exercises protocol to follow. Prior Treatments and Tests S/P left shoulder arthroscopic labral repair 11/15/18 Future Testing and Treatments Planned None identified Treatment Goals Patient/Caregiver Goals Patient wants to get back to previous function; states I don't assume I would get back to previous level, but at least not disable. 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- Recreation/Hobbies No limitation 1 1/2 years ago Current Functional Impairments (Reported) Functional Limitations- ADL's Independent; unable to drive at this time Functional Limitations- Mobility/Gait Indep Functional Limitations- Work/School On disability since the last neck/shoulder injury 2016 Functional Limitations- Recreation/ Unable Hobbies PT-OP-C Subjective Start: 12/01/18 10:07 Freq: Status: Active Protocol: Document 12/13/18 10:12 EA (Rec: 12/13/18 10:21 EA [id number]) OP-PT Subjective Patient Comments Patient Comments 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 PT-OP-E Functional Tests Start: 12/01/18 10:07 Freq: Status: Active Protocol: Document 12/01/18 10:29 EA (Rec: 12/01/18 13:00 EA [id number]) Functional Tests Apley's Scratch Test Action 1: The subject is instructed to touch the opposite shoulder with his/her hand. This motion checks Glenohumeral adduction, internal rotation , horizontal adduction and scapular protraction Action 2: The subject is instructed to place his/her arm overhead and reach behind the neck to touch his/her upper back. This motion checks Glenohumeral abduction, external rotation and scapular upward rotation and elevation. Action 3: The subject puts his/her hand on the lower back and reaches upward as far as possible. This motion checks glenohumeral adduction, internal rotation and scapular retraction with downward rotation Action 1- Left Unable Action 1- Right behind opposite shoulder Action 2- Left unable Action 2- Right T1 Action 3- Left Unable Action 3- Right T9 PT-OP-F Manual Assessment Start: 12/01/18 10:07 Freq: Status: Active Protocol: Document 12/01/18 10:29 EA (Rec: 12/01/18 13:00 EA [id number]) Manual Assessments Soft Tissue Assessment Soft Tissue Mobility Assessment unable to assess due to muscle guarding and pain Joint Mobility Assessment Joint Mobility Assessment Unable to assess due to muscle guarding PT-OP-J Posture/Palpation/Skin Start: 12/01/18 10:07 Freq: Status: Active Protocol: Document 12/01/18 10:29 EA (Rec: 12/01/18 13:00 EA [id number]) Posture Evaluation Position Standing Evaluation View post/lat Head/C-Spine Posture Neutral Position T-Spine Posture Neutral Shoulder Posture Neutral Scapula Posture (L) Neutral (L) Protracted Arm Posture (L) Neutral (R) Neutral Palpation Assessment Location One Palpation Location Left Anterior upper and lower, posterior lower shoulder Palpation Findings Soft Tissue Tightness Muscle Guarding Tenderness Palpation Details Grade 3/4 tenderness with muscle guarding PT-OP-K Range of Motion Start: 12/01/18 10:07 Freq: Status: Active Protocol: Document 12/01/18 10:29 EA (Rec: 12/01/18 13:00 EA [id number]) Shoulder Goniometric Range of Motion Shoulder Measured in Degrees Left Passive Shoulder ROM WFL Yes Testing Position supine sitting Flexion 25 Extension 40 Abduction 30 Right Active Shoulder ROM WFL Yes Shoulder ROM Limitations Shoulder ROM Limitations Soft Tissue Tightness Pain Comments Other shoulder ROM is not tested due to healing pre- cautions Elbow/Forearm Range of Motion Elbow/Forearm Measured in Degrees Left Active Elbow/Forearm ROM WFL Yes Wrist Goniometric Range of Motion Wrist Measured in Degrees Left Wrist ROM WFL Yes PT-OP-M Strength Start: 12/01/18 10:07 Freq: Status: Active Protocol: Document 12/01/18 10:29 EA (Rec: 12/01/18 13:00 EA [id number]) Scapula Strength Scapula Manual Muscle Testing Left Elevation (C4) 3+ Fair+ Adduction 3+ Fair+ Abduction 3+ Fair+ Depression 3+ Fair+ Reason Not Measured Orthopedic Precautions Pain Comments Pain increased with higher resistance Shoulder Strength Shoulder Manual Muscle Testing Right Reason Not Measured WFL Left Reason Not Measured Orthopedic Precautions PT-OP-Q Treatments Start: 12/01/18 10:07 Freq: Status: Active Protocol: Document 12/13/18 10:12 EA (Rec: 12/13/18 10:21 EA [id number]) Therapeutic Exercises Supine Exercises 6 Supine Exercise Name t-bar ceiling punch Reps/Minutes x 15 reps 5 Supine Exercise Name T-bar press Reps/Minutes x 15 reps x 2 4 Supine Exercise Name T-bar ABd Reps/Minutes x 15 reps x 2 Comments pain free range 3 Supine Exercise Name T-bar flexio Reps/Minutes x 15 reps x 2 Comments Pain free range 2 Supine Exercise Name Shoulder gentle PROM: horiz ABD/ADD Reps/Minutes x 10 reps Comments pain free range 1 Supine Exercise Name Shoulder gentle PROM: flexion and abduction Reps/Minutes x 10 reps Comments pain free range Sidelying Exercises 2 Sidelying Exercise Name shoulder ER Reps/Minutes x 15 reps x 2 sets Comments pain free range 1 Sidelying Exercise Name shoulder ABD/ flexion/Ext Reps/Minutes x 10 reps x 2sets Sitting Exercises 4 Sitting Exercise Name Elbow: F/E and pronation supination Reps/Minutes x 15 reps 3 Sitting Exercise Name Scap retraction Reps/Minutes x 10 reps 2 Sitting Exercise Name scap protraction Reps/Minutes x 10 reps 1 Sitting Exercise Name Sitted shoulder scapular elevation Reps/Minutes 10 reps Standing Exercises 1 Standing Exercise Name Pnedulum exercise: F/EXT, side to side Reps/Minutes x 15 reps x 2 sets Comments 2 lbs wrist wght PT-OP-R Modalities Start: 12/01/18 10:07 Freq: Status: Active Protocol: Document 12/13/18 10:21 EA (Rec: 12/13/18 10:21 EA [id number]) Hot Pack/Cold Pack Treatment Cold Pack Location left shoulder Treatment Duration (minutes) 10 Patient Tolerance Good PT-OP-T Assessment and Plan Start: 12/01/18 10:07 Freq: Status: Active Protocol: Document 12/13/18 10:12 EA (Rec: 12/13/18 10:21 EA [id number]) Physical Therapy Assessment Assessment Summary Assessment Pt tolerated treatment. Less guarding at this time. Noted still tight into abduction and ER. Recommended to cont HEP. Physical Therapy Plan Next Visit Focus/Plan Next Note Type Treatment Note Next Visit Plan progress according to protocol or as tolerated.
--- NOTE | 2018-12-15 10:28 | PT.OTN ---
Current Diagnoses Superior glenoid labrum lesion of left shoulder, subsequent encounter (12/15/18) Physical Therapy Treatment Note PT-OP-A Visit Information Start: 12/01/18 10:07 Freq: Status: Active Protocol: Document 12/15/18 09:26 EA (Rec: 12/15/18 09:34 EA [id number]) Out-Patient Physical Therapy Visit Information Visit Information Visit Type Treatment Note Visit Start Time 09:00 Visit Stop Time 09:45 Total Visit Minutes 45 Visit Number 4 PT-OP-B Current Condition Start: 12/01/18 10:07 Freq: Status: Active Protocol: Document 12/01/18 10:09 EA (Rec: 12/01/18 10:26 EA [id number]) Current Condition History of Current Condition Onset Date S/P 11/15/18 Left shoulder arthroscopic labral tear Current Complaints Left shoulder pain and weakness History of Current Condition Patient had work injury in 2016 when 2x/4 wood fell and hit his left shoulder and neck . Patient underwent cervical surgery on April/2017 due to shoulder numbness and weakness per patient. Pt reports underwent formal PT after that surgery and went well. Pt today is 2 weeks post op L shoulder labral tear arthroscopic repair. Pt is has dr. Alfonso exercises protocol to follow. Prior Treatments and Tests S/P left shoulder arthroscopic labral repair 11/15/18 Future Testing and Treatments Planned None identified Treatment Goals Patient/Caregiver Goals Patient wants to get back to previous function; states I don't assume I would get back to previous level, but at least not disable. 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- Recreation/Hobbies No limitation 1 1/2 years ago Current Functional Impairments (Reported) Functional Limitations- ADL's Independent; unable to drive at this time Functional Limitations- Mobility/Gait Indep Functional Limitations- Work/School On disability since the last neck/shoulder injury 2016 Functional Limitations- Recreation/ Unable Hobbies PT-OP-C Subjective Start: 12/01/18 10:07 Freq: Status: Active Protocol: Document 12/15/18 09:26 EA (Rec: 12/15/18 09:34 EA [id number]) OP-PT Subjective Patient Comments Patient Comments Pt reports complaint with HEP and he has been sleeping well after starting BP medication Patient Reported Progress Improving PT-OP-E Functional Tests Start: 12/01/18 10:07 Freq: Status: Active Protocol: Document 12/01/18 10:29 EA (Rec: 12/01/18 13:00 EA [id number]) Functional Tests Apley's Scratch Test Action 1: The subject is instructed to touch the opposite shoulder with his/her hand. This motion checks Glenohumeral adduction, internal rotation , horizontal adduction and scapular protraction Action 2: The subject is instructed to place his/her arm overhead and reach behind the neck to touch his/her upper back. This motion checks Glenohumeral abduction, external rotation and scapular upward rotation and elevation. Action 3: The subject puts his/her hand on the lower back and reaches upward as far as possible. This motion checks glenohumeral adduction, internal rotation and scapular retraction with downward rotation Action 1- Left Unable Action 1- Right behind opposite shoulder Action 2- Left unable Action 2- Right T1 Action 3- Left Unable Action 3- Right T9 PT-OP-F Manual Assessment Start: 12/01/18 10:07 Freq: Status: Active Protocol: Document 12/01/18 10:29 EA (Rec: 12/01/18 13:00 EA [id number]) Manual Assessments Soft Tissue Assessment Soft Tissue Mobility Assessment unable to assess due to muscle guarding and pain Joint Mobility Assessment Joint Mobility Assessment Unable to assess due to muscle guarding PT-OP-J Posture/Palpation/Skin Start: 12/01/18 10:07 Freq: Status: Active Protocol: Document 12/01/18 10:29 EA (Rec: 12/01/18 13:00 EA [id number]) Posture Evaluation Position Standing Evaluation View post/lat Head/C-Spine Posture Neutral Position T-Spine Posture Neutral Shoulder Posture Neutral Scapula Posture (L) Neutral (L) Protracted Arm Posture (L) Neutral (R) Neutral Palpation Assessment Location One Palpation Location Left Anterior upper and lower, posterior lower shoulder Palpation Findings Soft Tissue Tightness Muscle Guarding Tenderness Palpation Details Grade 3/4 tenderness with muscle guarding PT-OP-K Range of Motion Start: 12/01/18 10:07 Freq: Status: Active Protocol: Document 12/01/18 10:29 EA (Rec: 12/01/18 13:00 EA [id number]) Shoulder Goniometric Range of Motion Shoulder Measured in Degrees Left Passive Shoulder ROM WFL Yes Testing Position supine sitting Flexion 25 Extension 40 Abduction 30 Right Active Shoulder ROM WFL Yes Shoulder ROM Limitations Shoulder ROM Limitations Soft Tissue Tightness Pain Comments Other shoulder ROM is not tested due to healing pre- cautions Elbow/Forearm Range of Motion Elbow/Forearm Measured in Degrees Left Active Elbow/Forearm ROM WFL Yes Wrist Goniometric Range of Motion Wrist Measured in Degrees Left Wrist ROM WFL Yes PT-OP-M Strength Start: 12/01/18 10:07 Freq: Status: Active Protocol: Document 12/01/18 10:29 EA (Rec: 12/01/18 13:00 EA [id number]) Scapula Strength Scapula Manual Muscle Testing Left Elevation (C4) 3+ Fair+ Adduction 3+ Fair+ Abduction 3+ Fair+ Depression 3+ Fair+ Reason Not Measured Orthopedic Precautions Pain Comments Pain increased with higher resistance Shoulder Strength Shoulder Manual Muscle Testing Right Reason Not Measured WFL Left Reason Not Measured Orthopedic Precautions PT-OP-Q Treatments Start: 12/01/18 10:07 Freq: Status: Active Protocol: Document 12/15/18 09:26 EA (Rec: 12/15/18 09:34 EA [id number]) Therapeutic Exercises Supine Exercises 6 Supine Exercise Name t-bar ceiling punch Reps/Minutes x 15 reps 5 Supine Exercise Name T-bar press Reps/Minutes x 15 reps x 2 4 Supine Exercise Name T-bar ABd Reps/Minutes x 15 reps x 2 Comments pain free range 3 Supine Exercise Name T-bar flexio Reps/Minutes x 15 reps x 2 Comments Pain free range 2 Supine Exercise Name Shoulder gentle PROM: horiz ABD/ADD Reps/Minutes x 10 reps Comments pain free range 1 Supine Exercise Name Shoulder gentle PROM: flexion and abduction Reps/Minutes x 10 reps Comments pain free range Sidelying Exercises 2 Sidelying Exercise Name shoulder ER Reps/Minutes x 15 reps x 2 sets Comments pain free range 1 Sidelying Exercise Name shoulder ABD/ flexion/Ext Reps/Minutes x 10 reps x 2sets Sitting Exercises 4 Sitting Exercise Name Elbow: F/E and pronation supination Resistance 2 lbs Reps/Minutes x 15 reps x 2 3 Sitting Exercise Name Scap retraction Reps/Minutes x 10 reps 2 Sitting Exercise Name scap protraction Reps/Minutes x 10 reps 1 Sitting Exercise Name Sitted shoulder scapular elevation Reps/Minutes 15 reps x 2 Standing Exercises 1 Standing Exercise Name Pnedulum exercise: F/EXT, side to side Reps/Minutes x 15 reps x 2 sets Comments 2 lbs wrist wght PT-OP-R Modalities Start: 12/01/18 10:07 Freq: Status: Active Protocol: Document 12/15/18 09:26 EA (Rec: 12/15/18 09:34 EA [id number]) Hot Pack/Cold Pack Treatment Cold Pack Location left shoulder Treatment Duration (minutes) 10 Patient Tolerance Good PT-OP-T Assessment and Plan Start: 12/01/18 10:07 Freq: Status: Active Protocol: Document 12/15/18 09:26 EA (Rec: 12/15/18 09:34 EA [id number]) Physical Therapy Assessment Assessment Summary Assessment Shoulder ROM improved by 15 degrees to flexion and ABD with ER of 5 degrees increased . Patient continue to progress on his ROM/AROM Physical Therapy Plan Next Visit Focus/Plan Next Note Type Treatment Note Next Visit Plan Full shoulder elevation goals
--- NOTE | 2018-12-20 10:49 | PT.OTN ---
Current Diagnoses Superior glenoid labrum lesion of left shoulder, subsequent encounter (12/20/18) Physical Therapy Treatment Note PT-OP-A Visit Information Start: 12/01/18 10:07 Freq: Status: Active Protocol: Document 12/20/18 10:41 EA (Rec: 12/20/18 10:49 EA [id number]) Out-Patient Physical Therapy Visit Information Visit Information Visit Type Treatment Note Visit Start Time 09:00 Visit Stop Time 09:45 Total Visit Minutes 53 Visit Number 5 PT-OP-B Current Condition Start: 12/01/18 10:07 Freq: Status: Active Protocol: Document 12/01/18 10:09 EA (Rec: 12/01/18 10:26 EA [id number]) Current Condition History of Current Condition Onset Date S/P 11/15/18 Left shoulder arthroscopic labral tear Current Complaints Left shoulder pain and weakness History of Current Condition Patient had work injury in 2016 when 2x/4 wood fell and hit his left shoulder and neck . Patient underwent cervical surgery on April/2017 due to shoulder numbness and weakness per patient. Pt reports underwent formal PT after that surgery and went well. Pt today is 2 weeks post op L shoulder labral tear arthroscopic repair. Pt is has dr. Alfonso exercises protocol to follow. Prior Treatments and Tests S/P left shoulder arthroscopic labral repair 11/15/18 Future Testing and Treatments Planned None identified Treatment Goals Patient/Caregiver Goals Patient wants to get back to previous function; states I don't assume I would get back to previous level, but at least not disable. 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 PT reports he would like improve his mobility and be back to previous level. PT-OP-E Functional Tests Start: 12/01/18 10:07 Freq: Status: Active Protocol: Document 12/01/18 10:29 EA (Rec: 12/01/18 13:00 EA [id number]) Functional Tests Apley's Scratch Test Action 1: The subject is instructed to touch the opposite shoulder with his/her hand. This motion checks Glenohumeral adduction, internal rotation , horizontal adduction and scapular protraction Action 2: The subject is instructed to place his/her arm overhead and reach behind the neck to touch his/her upper back. This motion checks Glenohumeral abduction, external rotation and scapular upward rotation and elevation. Action 3: The subject puts his/her hand on the lower back and reaches upward as far as possible. This motion checks glenohumeral adduction, internal rotation and scapular retraction with downward rotation Action 1- Left Unable Action 1- Right behind opposite shoulder Action 2- Left unable Action 2- Right T1 Action 3- Left Unable Action 3- Right T9 PT-OP-F Manual Assessment Start: 12/01/18 10:07 Freq: Status: Active Protocol: Document 12/01/18 10:29 EA (Rec: 12/01/18 13:00 EA [id number]) Manual Assessments Soft Tissue Assessment Soft Tissue Mobility Assessment unable to assess due to muscle guarding and pain Joint Mobility Assessment Joint Mobility Assessment Unable to assess due to muscle guarding PT-OP-J Posture/Palpation/Skin Start: 12/01/18 10:07 Freq: Status: Active Protocol: Document 12/01/18 10:29 EA (Rec: 12/01/18 13:00 EA [id number]) Posture Evaluation Position Standing Evaluation View post/lat Head/C-Spine Posture Neutral Position T-Spine Posture Neutral Shoulder Posture Neutral Scapula Posture (L) Neutral (L) Protracted Arm Posture (L) Neutral (R) Neutral Palpation Assessment Location One Palpation Location Left Anterior upper and lower, posterior lower shoulder Palpation Findings Soft Tissue Tightness Muscle Guarding Tenderness Palpation Details Grade 3/4 tenderness with muscle guarding PT-OP-K Range of Motion Start: 12/01/18 10:07 Freq: Status: Active Protocol: Document 12/01/18 10:29 EA (Rec: 12/01/18 13:00 EA [id number]) Shoulder Goniometric Range of Motion Shoulder Measured in Degrees Left Passive Shoulder ROM WFL Yes Testing Position supine sitting Flexion 25 Extension 40 Abduction 30 Right Active Shoulder ROM WFL Yes Shoulder ROM Limitations Shoulder ROM Limitations Soft Tissue Tightness Pain Comments Other shoulder ROM is not tested due to healing pre- cautions Elbow/Forearm Range of Motion Elbow/Forearm Measured in Degrees Left Active Elbow/Forearm ROM WFL Yes Wrist Goniometric Range of Motion Wrist Measured in Degrees Left Wrist ROM WFL Yes PT-OP-M Strength Start: 12/01/18 10:07 Freq: Status: Active Protocol: Document 12/01/18 10:29 EA (Rec: 12/01/18 13:00 EA [id number]) Scapula Strength Scapula Manual Muscle Testing Left Elevation (C4) 3+ Fair+ Adduction 3+ Fair+ Abduction 3+ Fair+ Depression 3+ Fair+ Reason Not Measured Orthopedic Precautions Pain Comments Pain increased with higher resistance Shoulder Strength Shoulder Manual Muscle Testing Right Reason Not Measured WFL Left Reason Not Measured Orthopedic Precautions PT-OP-Q Treatments Start: 12/01/18 10:07 Freq: Status: Active Protocol: Document 12/20/18 10:41 EA (Rec: 12/20/18 10:49 EA [id number]) Therapeutic Exercises Supine Exercises 6 Supine Exercise Name t-bar ceiling punch Reps/Minutes x 15 reps 5 Supine Exercise Name T-bar press Reps/Minutes x 15 reps x 2 4 Supine Exercise Name T-bar ABd Reps/Minutes x 15 reps x 2 Comments pain free range 3 Supine Exercise Name T-bar flexio Reps/Minutes x 15 reps x 2 Comments Pain free range 2 Supine Exercise Name Shoulder gentle PROM: horiz ABD/ADD Reps/Minutes x 10 reps Comments pain free range 1 Supine Exercise Name Shoulder gentle PROM: flexion and abduction Reps/Minutes x 10 reps Comments pain free range Sidelying Exercises 2 Sidelying Exercise Name shoulder ER Reps/Minutes x 15 reps x 2 sets Comments pain free range 1 Sidelying Exercise Name shoulder ABD/ flexion/Ext Reps/Minutes x 10 reps x 2sets Sitting Exercises 4 Sitting Exercise Name Elbow: F/E and pronation supination Resistance 2 lbs Reps/Minutes x 15 reps x 2 3 Sitting Exercise Name Scap retraction Reps/Minutes x 10 reps 2 Sitting Exercise Name scap protraction Reps/Minutes x 10 reps 1 Sitting Exercise Name Sitted shoulder scapular elevation Reps/Minutes 15 reps x 2 Standing Exercises 3 Standing Exercise Name T-bar shoulder ext- pain free range Reps/Minutes x 15 repsx 2 2 Standing Exercise Name T-Bar shoulder shrugs Reps/Minutes x 15 reps Comments t-bar behind 1 Standing Exercise Name Pendulum exercise: F/EXT, side to side Reps/Minutes x 15 reps x 2 sets Comments 2 lbs wrist wght PT-OP-R Modalities Start: 12/01/18 10:07 Freq: Status: Active Protocol: Document 12/20/18 10:41 EA (Rec: 12/20/18 10:49 EA [id number]) Hot Pack/Cold Pack Treatment Cold Pack Location left shoulder Treatment Duration (minutes) 15 Patient Tolerance Good PT-OP-T Assessment and Plan Start: 12/01/18 10:07 Freq: Status: Active Protocol: Document 12/20/18 10:41 EA (Rec: 12/20/18 10:49 EA [id number]) Physical Therapy Assessment Assessment Summary Assessment Still noted end range shoulder ABD/Flexion and ER muscle guarding with pain increase into 15 degrees ER. Physical Therapy Plan Next Visit Focus/Plan Next Note Type Treatment Note
--- NOTE | 2018-12-22 09:57 | PT.OTN ---
Current Diagnoses Superior glenoid labrum lesion of left shoulder, subsequent encounter (12/22/18) Physical Therapy Treatment Note PT-OP-A Visit Information Start: 12/01/18 10:07 Freq: Status: Active Protocol: Document 12/22/18 09:34 EA (Rec: 12/22/18 09:41 EA [id number]) Out-Patient Physical Therapy Visit Information Visit Information Visit Type Treatment Note Visit Start Time 09:00 Visit Stop Time 09:45 Total Visit Minutes 53 Visit Number 6 PT-OP-B Current Condition Start: 12/01/18 10:07 Freq: Status: Active Protocol: Document 12/01/18 10:09 EA (Rec: 12/01/18 10:26 EA [id number]) Current Condition History of Current Condition Onset Date S/P 11/15/18 Left shoulder arthroscopic labral tear Current Complaints Left shoulder pain and weakness History of Current Condition Patient had work injury in 2016 when 2x/4 wood fell and hit his left shoulder and neck . Patient underwent cervical surgery on April/2017 due to shoulder numbness and weakness per patient. Pt reports underwent formal PT after that surgery and went well. Pt today is 2 weeks post op L shoulder labral tear arthroscopic repair. Pt is has dr. Alfonso exercises protocol to follow. Prior Treatments and Tests S/P left shoulder arthroscopic labral repair 11/15/18 Future Testing and Treatments Planned None identified Treatment Goals Patient/Caregiver Goals Patient wants to get back to previous function; states I don't assume I would get back to previous level, but at least not disable. 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- Recreation/Hobbies No limitation 1 1/2 years ago Current Functional Impairments (Reported) Functional Limitations- ADL's Independent; unable to drive at this time Functional Limitations- Mobility/Gait Indep Functional Limitations- Work/School On disability since the last neck/shoulder injury 2016 Functional Limitations- Recreation/ Unable Hobbies PT-OP-C Subjective Start: 12/01/18 10:07 Freq: Status: Active Protocol: Document 12/22/18 09:34 EA (Rec: 12/22/18 09:41 EA [id number]) OP-PT Subjective Patient Comments Patient Comments Pt reports left shoulder was quite sore last night after accidentally pulled the blanket while in bed; states feels no major injury happens. Patient Reported Progress Improving PT-OP-E Functional Tests Start: 12/01/18 10:07 Freq: Status: Active Protocol: Document 12/01/18 10:29 EA (Rec: 12/01/18 13:00 EA [id number]) Functional Tests Apley's Scratch Test Action 1: The subject is instructed to touch the opposite shoulder with his/her hand. This motion checks Glenohumeral adduction, internal rotation , horizontal adduction and scapular protraction Action 2: The subject is instructed to place his/her arm overhead and reach behind the neck to touch his/her upper back. This motion checks Glenohumeral abduction, external rotation and scapular upward rotation and elevation. Action 3: The subject puts his/her hand on the lower back and reaches upward as far as possible. This motion checks glenohumeral adduction, internal rotation and scapular retraction with downward rotation Action 1- Left Unable Action 1- Right behind opposite shoulder Action 2- Left unable Action 2- Right T1 Action 3- Left Unable Action 3- Right T9 PT-OP-F Manual Assessment Start: 12/01/18 10:07 Freq: Status: Active Protocol: Document 12/01/18 10:29 EA (Rec: 12/01/18 13:00 EA [id number]) Manual Assessments Soft Tissue Assessment Soft Tissue Mobility Assessment unable to assess due to muscle guarding and pain Joint Mobility Assessment Joint Mobility Assessment Unable to assess due to muscle guarding PT-OP-J Posture/Palpation/Skin Start: 12/01/18 10:07 Freq: Status: Active Protocol: Document 12/01/18 10:29 EA (Rec: 12/01/18 13:00 EA [id number]) Posture Evaluation Position Standing Evaluation View post/lat Head/C-Spine Posture Neutral Position T-Spine Posture Neutral Shoulder Posture Neutral Scapula Posture (L) Neutral (L) Protracted Arm Posture (L) Neutral (R) Neutral Palpation Assessment Location One Palpation Location Left Anterior upper and lower, posterior lower shoulder Palpation Findings Soft Tissue Tightness Muscle Guarding Tenderness Palpation Details Grade 3/4 tenderness with muscle guarding PT-OP-K Range of Motion Start: 12/01/18 10:07 Freq: Status: Active Protocol: Document 12/01/18 10:29 EA (Rec: 12/01/18 13:00 EA [id number]) Shoulder Goniometric Range of Motion Shoulder Measured in Degrees Left Passive Shoulder ROM WFL Yes Testing Position supine sitting Flexion 25 Extension 40 Abduction 30 Right Active Shoulder ROM WFL Yes Shoulder ROM Limitations Shoulder ROM Limitations Soft Tissue Tightness Pain Comments Other shoulder ROM is not tested due to healing pre- cautions Elbow/Forearm Range of Motion Elbow/Forearm Measured in Degrees Left Active Elbow/Forearm ROM WFL Yes Wrist Goniometric Range of Motion Wrist Measured in Degrees Left Wrist ROM WFL Yes PT-OP-M Strength Start: 12/01/18 10:07 Freq: Status: Active Protocol: Document 12/01/18 10:29 EA (Rec: 12/01/18 13:00 EA [id number]) Scapula Strength Scapula Manual Muscle Testing Left Elevation (C4) 3+ Fair+ Adduction 3+ Fair+ Abduction 3+ Fair+ Depression 3+ Fair+ Reason Not Measured Orthopedic Precautions Pain Comments Pain increased with higher resistance Shoulder Strength Shoulder Manual Muscle Testing Right Reason Not Measured WFL Left Reason Not Measured Orthopedic Precautions PT-OP-Q Treatments Start: 12/01/18 10:07 Freq: Status: Active Protocol: Document 12/22/18 09:34 EA (Rec: 12/22/18 09:41 EA [id number]) Therapeutic Exercises Supine Exercises 6 Supine Exercise Name t-bar ceiling punch Reps/Minutes x 15 reps 5 Supine Exercise Name T-bar press Reps/Minutes x 15 reps x 2 4 Supine Exercise Name T-bar ABd Reps/Minutes x 15 reps x 2 Comments pain free range 3 Supine Exercise Name T-bar flexio Reps/Minutes x 15 reps x 2 Comments Pain free range 2 Supine Exercise Name Shoulder gentle PROM: horiz ABD/ADD Reps/Minutes x 10 reps Comments pain free range 1 Supine Exercise Name Shoulder gentle PROM: flexion and abduction Reps/Minutes x 10 reps Comments pain free range Sidelying Exercises 2 Sidelying Exercise Name shoulder ER: T-bar opposite arm assisted Reps/Minutes 5SH x 10 reps Comments pain free range 1 Sidelying Exercise Name shoulder ABD/ flexion/Ext Reps/Minutes x 10 reps x 2sets Sitting Exercises 4 Sitting Exercise Name Elbow: F/E and pronation supination Resistance 2 lbs Reps/Minutes x 15 reps x 2 3 Sitting Exercise Name Scap retraction Reps/Minutes x 10 reps 2 Sitting Exercise Name scap protraction Reps/Minutes x 10 reps 1 Sitting Exercise Name Sitted shoulder scapular elevation Reps/Minutes 15 reps x 2 Standing Exercises 4 Standing Exercise Name bent shoulder flexion/ retraction, abduction Reps/Minutes x 5SH x 5 reps Comments pain free range 3 Standing Exercise Name T-bar shoulder ext- pain free range Reps/Minutes x 15 repsx 2 2 Standing Exercise Name T-Bar shoulder shrugs Reps/Minutes x 15 reps Comments t-bar behind 1 Standing Exercise Name Pendulum exercise: F/EXT, side to side Reps/Minutes x 15 reps x 2 sets Comments 2 lbs wrist wght PT-OP-R Modalities Start: 12/01/18 10:07 Freq: Status: Active Protocol: Document 12/22/18 09:41 EA (Rec: 12/22/18 09:42 EA [id number]) Hot Pack/Cold Pack Treatment Cold Pack Location left shoulder Treatment Duration (minutes) 15 Patient Tolerance Good PT-OP-T Assessment and Plan Start: 12/01/18 10:07 Freq: Status: Active Protocol: Document 12/22/18 09:34 EA (Rec: 12/22/18 09:41 EA [id number]) Physical Therapy Assessment Assessment Summary Assessment Noted 10 deg shoulder elev progress; very slow progress with ER and ABduction at this time. Patient continue to progress. Physical Therapy Plan Next Visit Focus/Plan Next Note Type Treatment Note Next Visit Plan Progress as tolerated
--- NOTE | 2018-12-27 09:41 | PT.OTN ---
Current Diagnoses Superior glenoid labrum lesion of left shoulder, subsequent encounter (12/27/18) Physical Therapy Treatment Note PT-OP-A Visit Information Start: 12/01/18 10:07 Freq: Status: Active Protocol: Document 12/27/18 09:32 EA (Rec: 12/27/18 09:40 EA [id number]) Out-Patient Physical Therapy Visit Information Visit Information Visit Type Treatment Note Visit Start Time 09:00 Visit Stop Time 09:48 Total Visit Minutes 48 Visit Number 7 PT-OP-B Current Condition Start: 12/01/18 10:07 Freq: Status: Active Protocol: Document 12/01/18 10:09 EA (Rec: 12/01/18 10:26 EA [id number]) Current Condition History of Current Condition Onset Date S/P 11/15/18 Left shoulder arthroscopic labral tear Current Complaints Left shoulder pain and weakness History of Current Condition Patient had work injury in 2016 when 2x/4 wood fell and hit his left shoulder and neck . Patient underwent cervical surgery on April/2017 due to shoulder numbness and weakness per patient. Pt reports underwent formal PT after that surgery and went well. Pt today is 2 weeks post op L shoulder labral tear arthroscopic repair. Pt is has dr. Alfonso exercises protocol to follow. Prior Treatments and Tests S/P left shoulder arthroscopic labral repair 11/15/18 Future Testing and Treatments Planned None identified Treatment Goals Patient/Caregiver Goals Patient wants to get back to previous function; states I don't assume I would get back to previous level, but at least not disable. 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- Recreation/Hobbies No limitation 1 1/2 years ago Current Functional Impairments (Reported) Functional Limitations- ADL's Independent; unable to drive at this time Functional Limitations- Mobility/Gait Indep Functional Limitations- Work/School On disability since the last neck/shoulder injury 2016 Functional Limitations- Recreation/ Unable Hobbies PT-OP-C Subjective Start: 12/01/18 10:07 Freq: Status: Active Protocol: Document 12/27/18 09:32 EA (Rec: 12/27/18 09:40 EA [id number]) OP-PT Subjective Patient Comments Patient Comments Pt reports left shoulder is quite painful during the weekend; states complaint with HEP. Pt mentioned that he will be seeing his doctor tomorrow. PT-OP-E Functional Tests Start: 12/01/18 10:07 Freq: Status: Active Protocol: Document 12/01/18 10:29 EA (Rec: 12/01/18 13:00 EA [id number]) Functional Tests Apley's Scratch Test Action 1: The subject is instructed to touch the opposite shoulder with his/her hand. This motion checks Glenohumeral adduction, internal rotation , horizontal adduction and scapular protraction Action 2: The subject is instructed to place his/her arm overhead and reach behind the neck to touch his/her upper back. This motion checks Glenohumeral abduction, external rotation and scapular upward rotation and elevation. Action 3: The subject puts his/her hand on the lower back and reaches upward as far as possible. This motion checks glenohumeral adduction, internal rotation and scapular retraction with downward rotation Action 1- Left Unable Action 1- Right behind opposite shoulder Action 2- Left unable Action 2- Right T1 Action 3- Left Unable Action 3- Right T9 PT-OP-F Manual Assessment Start: 12/01/18 10:07 Freq: Status: Active Protocol: Document 12/01/18 10:29 EA (Rec: 12/01/18 13:00 EA [id number]) Manual Assessments Soft Tissue Assessment Soft Tissue Mobility Assessment unable to assess due to muscle guarding and pain Joint Mobility Assessment Joint Mobility Assessment Unable to assess due to muscle guarding PT-OP-J Posture/Palpation/Skin Start: 12/01/18 10:07 Freq: Status: Active Protocol: Document 12/01/18 10:29 EA (Rec: 12/01/18 13:00 EA [id number]) Posture Evaluation Position Standing Evaluation View post/lat Head/C-Spine Posture Neutral Position T-Spine Posture Neutral Shoulder Posture Neutral Scapula Posture (L) Neutral (L) Protracted Arm Posture (L) Neutral (R) Neutral Palpation Assessment Location One Palpation Location Left Anterior upper and lower, posterior lower shoulder Palpation Findings Soft Tissue Tightness Muscle Guarding Tenderness Palpation Details Grade 3/4 tenderness with muscle guarding PT-OP-K Range of Motion Start: 12/01/18 10:07 Freq: Status: Active Protocol: Document 12/01/18 10:29 EA (Rec: 12/01/18 13:00 EA [id number]) Shoulder Goniometric Range of Motion Shoulder Measured in Degrees Left Passive Shoulder ROM WFL Yes Testing Position supine sitting Flexion 25 Extension 40 Abduction 30 Right Active Shoulder ROM WFL Yes Shoulder ROM Limitations Shoulder ROM Limitations Soft Tissue Tightness Pain Comments Other shoulder ROM is not tested due to healing pre- cautions Elbow/Forearm Range of Motion Elbow/Forearm Measured in Degrees Left Active Elbow/Forearm ROM WFL Yes Wrist Goniometric Range of Motion Wrist Measured in Degrees Left Wrist ROM WFL Yes PT-OP-M Strength Start: 12/01/18 10:07 Freq: Status: Active Protocol: Document 12/01/18 10:29 EA (Rec: 12/01/18 13:00 EA [id number]) Scapula Strength Scapula Manual Muscle Testing Left Elevation (C4) 3+ Fair+ Adduction 3+ Fair+ Abduction 3+ Fair+ Depression 3+ Fair+ Reason Not Measured Orthopedic Precautions Pain Comments Pain increased with higher resistance Shoulder Strength Shoulder Manual Muscle Testing Right Reason Not Measured WFL Left Reason Not Measured Orthopedic Precautions PT-OP-Q Treatments Start: 12/01/18 10:07 Freq: Status: Active Protocol: Document 12/27/18 09:32 EA (Rec: 12/27/18 09:40 EA [id number]) Therapeutic Exercises Supine Exercises 6 Supine Exercise Name t-bar ceiling punch Reps/Minutes x 15 reps 5 Supine Exercise Name T-bar press Resistance 2 lbs Reps/Minutes x 15 reps x 2 3 Supine Exercise Name T-bar flexio Resistance 2 lbs Reps/Minutes x 15 reps x 2 Comments Pain free range 2 Supine Exercise Name Shoulder gentle PROM: horiz ABD/ADD Reps/Minutes x 10 reps Comments pain free range 1 Supine Exercise Name Shoulder gentle PROM: flexion and abduction Reps/Minutes x 10 reps Comments pain free range Sidelying Exercises 2 Sidelying Exercise Name shoulder ER: T-bar opposite arm assisted Reps/Minutes 5SH x 10 reps Comments pain free range 1 Sidelying Exercise Name shoulder ABD Reps/Minutes x 10 reps x 2sets Sitting Exercises 5 Sitting Exercise Name Shoulder patrice: Flex/ABD Reps/Minutes x 15 reps each 3 Sitting Exercise Name Scap retraction Reps/Minutes x 10 reps 2 Sitting Exercise Name scap protraction Reps/Minutes x 10 reps Standing Exercises 4 Standing Exercise Name bent shoulder flexion/ retraction, abduction Reps/Minutes x 5SH x 5 reps Comments pain free range 3 Standing Exercise Name T-bar shoulder ext- pain free range Reps/Minutes x 15 repsx 2 2 Standing Exercise Name T-Bar shoulder shrugs Reps/Minutes x 15 reps Comments t-bar behind 1 Standing Exercise Name Pendulum exercise: F/EXT, side to side Reps/Minutes x 15 reps x 2 sets Comments 2 lbs wrist wght PT-OP-R Modalities Start: 12/01/18 10:07 Freq: Status: Active Protocol: Document 12/27/18 09:40 EA (Rec: 12/27/18 09:41 EA [id number]) Hot Pack/Cold Pack Treatment Cold Pack Location left shoulder Treatment Duration (minutes) 15 Patient Tolerance Good PT-OP-T Assessment and Plan Start: 12/01/18 10:07 Freq: Status: Active Protocol: Document 12/27/18 09:32 EA (Rec: 12/27/18 09:40 EA [id number]) Physical Therapy Assessment Assessment Summary Assessment Noted supine shoulder flexion 0-110, SL ABD 0-85 deg. ER still pain even with gentle PROM. Pt is progressing slow due to exercise tolerance/pain . Physical Therapy Plan Next Visit Focus/Plan Next Note Type Treatment Note Next Visit Plan Progress as tolerated
--- NOTE | 2019-01-06 10:24 | PT.OTN ---
Current Diagnoses Superior glenoid labrum lesion of left shoulder, subsequent encounter (01/06/19) Physical Therapy Treatment Note PT-OP-A Visit Information Start: 12/01/18 10:07 Freq: Status: Active Protocol: Document 01/06/19 08:59 EA (Rec: 01/06/19 09:02 EA [id number]) Out-Patient Physical Therapy Visit Information Visit Information Visit Type Treatment Note Visit Start Time 08:15 Visit Stop Time 09:10 Total Visit Minutes 53 Visit Number 8 PT-OP-B Current Condition Start: 12/01/18 10:07 Freq: Status: Active Protocol: Document 12/01/18 10:09 EA (Rec: 12/01/18 10:26 EA [id number]) Current Condition History of Current Condition Onset Date S/P 11/15/18 Left shoulder arthroscopic labral tear Current Complaints Left shoulder pain and weakness History of Current Condition Patient had work injury in 2016 when 2x/4 wood fell and hit his left shoulder and neck . Patient underwent cervical surgery on April/2017 due to shoulder numbness and weakness per patient. Pt reports underwent formal PT after that surgery and went well. Pt today is 2 weeks post op L shoulder labral tear arthroscopic repair. Pt is has dr. Alfonso exercises protocol to follow. Prior Treatments and Tests S/P left shoulder arthroscopic labral repair 11/15/18 Future Testing and Treatments Planned None identified Treatment Goals Patient/Caregiver Goals Patient wants to get back to previous function; states I don't assume I would get back to previous level, but at least not disable. 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- Recreation/Hobbies No limitation 1 1/2 years ago Current Functional Impairments (Reported) Functional Limitations- ADL's Independent; unable to drive at this time Functional Limitations- Mobility/Gait Indep Functional Limitations- Work/School On disability since the last neck/shoulder injury 2016 Functional Limitations- Recreation/ Unable Hobbies PT-OP-C Subjective Start: 12/01/18 10:07 Freq: Status: Active Protocol: Document 01/06/19 08:59 EA (Rec: 01/06/19 09:02 EA [id number]) OP-PT Subjective Patient Comments Patient Comments Pt reports did [employer] works; states I need to bring money to our home. He reports that his partner is sicked and he needs to find money though his shoulder is quite hurting. PT-OP-E Functional Tests Start: 12/01/18 10:07 Freq: Status: Active Protocol: Document 12/01/18 10:29 EA (Rec: 12/01/18 13:00 EA [id number]) Functional Tests Apley's Scratch Test Action 1: The subject is instructed to touch the opposite shoulder with his/her hand. This motion checks Glenohumeral adduction, internal rotation , horizontal adduction and scapular protraction Action 2: The subject is instructed to place his/her arm overhead and reach behind the neck to touch his/her upper back. This motion checks Glenohumeral abduction, external rotation and scapular upward rotation and elevation. Action 3: The subject puts his/her hand on the lower back and reaches upward as far as possible. This motion checks glenohumeral adduction, internal rotation and scapular retraction with downward rotation Action 1- Left Unable Action 1- Right behind opposite shoulder Action 2- Left unable Action 2- Right T1 Action 3- Left Unable Action 3- Right T9 PT-OP-F Manual Assessment Start: 12/01/18 10:07 Freq: Status: Active Protocol: Document 12/01/18 10:29 EA (Rec: 12/01/18 13:00 EA [id number]) Manual Assessments Soft Tissue Assessment Soft Tissue Mobility Assessment unable to assess due to muscle guarding and pain Joint Mobility Assessment Joint Mobility Assessment Unable to assess due to muscle guarding PT-OP-J Posture/Palpation/Skin Start: 12/01/18 10:07 Freq: Status: Active Protocol: Document 12/01/18 10:29 EA (Rec: 12/01/18 13:00 EA [id number]) Posture Evaluation Position Standing Evaluation View post/lat Head/C-Spine Posture Neutral Position T-Spine Posture Neutral Shoulder Posture Neutral Scapula Posture (L) Neutral (L) Protracted Arm Posture (L) Neutral (R) Neutral Palpation Assessment Location One Palpation Location Left Anterior upper and lower, posterior lower shoulder Palpation Findings Soft Tissue Tightness Muscle Guarding Tenderness Palpation Details Grade 3/4 tenderness with muscle guarding PT-OP-K Range of Motion Start: 12/01/18 10:07 Freq: Status: Active Protocol: Document 12/01/18 10:29 EA (Rec: 12/01/18 13:00 EA [id number]) Shoulder Goniometric Range of Motion Shoulder Measured in Degrees Left Passive Shoulder ROM WFL Yes Testing Position supine sitting Flexion 25 Extension 40 Abduction 30 Right Active Shoulder ROM WFL Yes Shoulder ROM Limitations Shoulder ROM Limitations Soft Tissue Tightness Pain Comments Other shoulder ROM is not tested due to healing pre- cautions Elbow/Forearm Range of Motion Elbow/Forearm Measured in Degrees Left Active Elbow/Forearm ROM WFL Yes Wrist Goniometric Range of Motion Wrist Measured in Degrees Left Wrist ROM WFL Yes PT-OP-M Strength Start: 12/01/18 10:07 Freq: Status: Active Protocol: Document 12/01/18 10:29 EA (Rec: 12/01/18 13:00 EA [id number]) Scapula Strength Scapula Manual Muscle Testing Left Elevation (C4) 3+ Fair+ Adduction 3+ Fair+ Abduction 3+ Fair+ Depression 3+ Fair+ Reason Not Measured Orthopedic Precautions Pain Comments Pain increased with higher resistance Shoulder Strength Shoulder Manual Muscle Testing Right Reason Not Measured WFL Left Reason Not Measured Orthopedic Precautions PT-OP-Q Treatments Start: 12/01/18 10:07 Freq: Status: Active Protocol: Document 01/06/19 08:59 EA (Rec: 01/06/19 09:02 EA [id number]) Cardio Equipment Upper Body Ergometer (UBE) Duration (Minutes) 5 Seat Position 12 Height 1.5 Other 5% effort to left arm Therapeutic Exercises Supine Exercises 6 Supine Exercise Name t-bar ceiling punch Reps/Minutes x 15 reps 5 Supine Exercise Name T-bar press Resistance 2 lbs Reps/Minutes x 15 reps x 2 4 Supine Exercise Name T-bar ABd Reps/Minutes x 15 reps x 2 Comments pain free range 3 Supine Exercise Name T-bar flexio Resistance 2 lbs Reps/Minutes x 15 reps x 2 Comments Pain free range 2 Supine Exercise Name Shoulder gentle PROM: horiz ABD/ADD Reps/Minutes x 10 reps Comments pain free range 1 Supine Exercise Name Shoulder gentle PROM: flexion and abduction Reps/Minutes x 10 reps Comments pain free range Sidelying Exercises 2 Sidelying Exercise Name shoulder ER: T-bar opposite arm assisted Reps/Minutes 5SH x 10 reps Comments pain free range 1 Sidelying Exercise Name shoulder ABD Reps/Minutes x 10 reps x 2sets Sitting Exercises 5 Sitting Exercise Name Shoulder patrice: Flex/ABD Reps/Minutes x 15 reps each 4 Sitting Exercise Name Elbow: F/E and pronation supination Resistance 3 lbs Reps/Minutes x 15 reps x 2 3 Sitting Exercise Name Scap retraction Resistance 2 lbs Reps/Minutes x 10 reps 2 Sitting Exercise Name scap protraction Reps/Minutes x 10 reps 1 Sitting Exercise Name Sitted shoulder scapular elevation Resistance 2 lbs Reps/Minutes 15 reps x 2 Standing Exercises 5 Standing Exercise Name elbow flexion Side bilateral Resistance 3 lbs Reps/Minutes x 12 reps x 2sets 4 Standing Exercise Name bent shoulder flexion/ retraction, abduction Reps/Minutes x 5SH x 5 reps Comments pain free range 3 Standing Exercise Name T-bar shoulder ext- pain free range Reps/Minutes x 15 repsx 2 2 Standing Exercise Name T-Bar shoulder shrugs Reps/Minutes x 15 reps Comments t-bar behind 1 Standing Exercise Name Pendulum exercise: F/EXT, side to side Reps/Minutes x 15 reps x 2 sets Comments 2 lbs wrist wght PT-OP-R Modalities Start: 12/01/18 10:07 Freq: Status: Active Protocol: Document 01/06/19 09:52 EA (Rec: 01/06/19 09:53 EA [id number]) Hot Pack/Cold Pack Treatment Cold Pack Location left shoulder Treatment Duration (minutes) 15 Patient Tolerance Good PT-OP-T Assessment and Plan Start: 12/01/18 10:07 Freq: Status: Active Protocol: Document 01/06/19 09:52 EA (Rec: 01/06/19 09:53 EA [id number]) Physical Therapy Assessment Assessment Summary Assessment Pain increased with ER and ABD /F of shoulder with guarding. Patient has slight progress as to ROM at this time. Recommended to cont. HEP. Physical Therapy Plan Next Visit Focus/Plan Next Note Type Treatment Note
--- NOTE | 2019-01-10 15:43 | PT.OTN ---
Current Diagnoses Superior glenoid labrum lesion of left shoulder, subsequent encounter (01/10/19) Physical Therapy Treatment Note PT-OP-A Visit Information Start: 12/01/18 10:07 Freq: Status: Active Protocol: Document 01/10/19 11:29 BS (Rec: 01/10/19 11:43 BS [id number]) Out-Patient Physical Therapy Visit Information Visit Information Visit Type Treatment Note Visit Note Pt tolerated AAROM and PROM today. Continues to demo limitations in L shoulder AROM . PT-OP-B Current Condition Start: 12/01/18 10:07 Freq: Status: Active Protocol: Document 12/01/18 10:09 EA (Rec: 12/01/18 10:26 EA [id number]) Current Condition History of Current Condition Onset Date S/P 11/15/18 Left shoulder arthroscopic labral tear Current Complaints Left shoulder pain and weakness History of Current Condition Patient had work injury in 2016 when 2x/4 wood fell and hit his left shoulder and neck . Patient underwent cervical surgery on April/2017 due to shoulder numbness and weakness per patient. Pt reports underwent formal PT after that surgery and went well. Pt today is 2 weeks post op L shoulder labral tear arthroscopic repair. Pt is has dr. Alfonso exercises protocol to follow. Prior Treatments and Tests S/P left shoulder arthroscopic labral repair 11/15/18 Future Testing and Treatments Planned None identified Treatment Goals Patient/Caregiver Goals Patient wants to get back to previous function; states I don't assume I would get back to previous level, but at least not disable. 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 He has been able to use his LUE with functional ROM during work activities, but states he has not been consistent with HEP. PT-OP-E Functional Tests Start: 12/01/18 10:07 Freq: Status: Active Protocol: Document 12/01/18 10:29 EA (Rec: 12/01/18 13:00 EA [id number]) Functional Tests Apley's Scratch Test Action 1: The subject is instructed to touch the opposite shoulder with his/her hand. This motion checks Glenohumeral adduction, internal rotation , horizontal adduction and scapular protraction Action 2: The subject is instructed to place his/her arm overhead and reach behind the neck to touch his/her upper back. This motion checks Glenohumeral abduction, external rotation and scapular upward rotation and elevation. Action 3: The subject puts his/her hand on the lower back and reaches upward as far as possible. This motion checks glenohumeral adduction, internal rotation and scapular retraction with downward rotation Action 1- Left Unable Action 1- Right behind opposite shoulder Action 2- Left unable Action 2- Right T1 Action 3- Left Unable Action 3- Right T9 PT-OP-F Manual Assessment Start: 12/01/18 10:07 Freq: Status: Active Protocol: Document 12/01/18 10:29 EA (Rec: 12/01/18 13:00 EA [id number]) Manual Assessments Soft Tissue Assessment Soft Tissue Mobility Assessment unable to assess due to muscle guarding and pain Joint Mobility Assessment Joint Mobility Assessment Unable to assess due to muscle guarding PT-OP-J Posture/Palpation/Skin Start: 12/01/18 10:07 Freq: Status: Active Protocol: Document 12/01/18 10:29 EA (Rec: 12/01/18 13:00 EA [id number]) Posture Evaluation Position Standing Evaluation View post/lat Head/C-Spine Posture Neutral Position T-Spine Posture Neutral Shoulder Posture Neutral Scapula Posture (L) Neutral (L) Protracted Arm Posture (L) Neutral (R) Neutral Palpation Assessment Location One Palpation Location Left Anterior upper and lower, posterior lower shoulder Palpation Findings Soft Tissue Tightness Muscle Guarding Tenderness Palpation Details Grade 3/4 tenderness with muscle guarding PT-OP-K Range of Motion Start: 12/01/18 10:07 Freq: Status: Active Protocol: Document 12/01/18 10:29 EA (Rec: 12/01/18 13:00 EA [id number]) Shoulder Goniometric Range of Motion Shoulder Measured in Degrees Left Passive Shoulder ROM WFL Yes Testing Position supine sitting Flexion 25 Extension 40 Abduction 30 Right Active Shoulder ROM WFL Yes Shoulder ROM Limitations Shoulder ROM Limitations Soft Tissue Tightness Pain Comments Other shoulder ROM is not tested due to healing pre- cautions Elbow/Forearm Range of Motion Elbow/Forearm Measured in Degrees Left Active Elbow/Forearm ROM WFL Yes Wrist Goniometric Range of Motion Wrist Measured in Degrees Left Wrist ROM WFL Yes PT-OP-M Strength Start: 12/01/18 10:07 Freq: Status: Active Protocol: Document 12/01/18 10:29 EA (Rec: 12/01/18 13:00 EA [id number]) Scapula Strength Scapula Manual Muscle Testing Left Elevation (C4) 3+ Fair+ Adduction 3+ Fair+ Abduction 3+ Fair+ Depression 3+ Fair+ Reason Not Measured Orthopedic Precautions Pain Comments Pain increased with higher resistance Shoulder Strength Shoulder Manual Muscle Testing Right Reason Not Measured WFL Left Reason Not Measured Orthopedic Precautions PT-OP-Q Treatments Start: 12/01/18 10:07 Freq: Status: Active Protocol: Document 01/10/19 11:29 BS (Rec: 01/10/19 11:43 BS [email or web address]) Cardio Equipment Upper Body Ergometer (UBE) Duration (Minutes) 6 Seat Position 12 Height 1.5 Other 5% effort to left arm Therapeutic Exercises Supine Exercises 7 Supine Exercise Name Shoulder ER, Tbar AAROM Reps/Minutes x20 Comments pain free range 6 Supine Exercise Name Serratus Punch Reps/Minutes 2x10 5 Supine Exercise Name T-bar press Resistance 2 lbs Reps/Minutes x 15 reps x 2 3 Supine Exercise Name T-bar flexion OH AAROM Reps/Minutes x 15 reps x 2 Comments Pain free range 1 Supine Exercise Name Shoulder gentle PROM: flex/abd /IR/ER Reps/Minutes x 10 reps, light over pressure Comments pain free range Sitting Exercises 5 Sitting Exercise Name Shoulder patrice: Flex/ABD Reps/Minutes 2 min each Comments pain free range Standing Exercises 3 Standing Exercise Name T-bar shoulder ext, abduction Reps/Minutes x 15 repsx 2 Manual Therapy Treatment Joint Mobilizations 1 Joint Post/Ant/Inferior Body Position Supine Reps/Duration 10 min total Comments mobilization followed by PROM flex, abd, IR/ER as tolerated. Grade 2-3 PT-OP-R Modalities Start: 12/01/18 10:07 Freq: Status: Active Protocol: Document 01/10/19 11:29 BS (Rec: 01/10/19 11:43 BS [email or web address]) Hot Pack/Cold Pack Treatment Cold Pack Location left shoulder Treatment Duration (minutes) 10 Patient Tolerance Good PT-OP-T Assessment and Plan Start: 12/01/18 10:07 Freq: Status: Active Protocol: Document 01/10/19 11:29 BS (Rec: 01/10/19 11:43 BS [id number]) Physical Therapy Assessment Assessment Summary Assessment Pt continues to demo limitations in L shoulder flex , abd, ER with greatest limitations in Abd/ER. Muscle guarding during PROM. Physical Therapy Plan Next Visit Focus/Plan Next Note Type Treatment Note Next Visit Plan Initiate strengthening per protocol as able next session.
--- NOTE | 2019-01-12 11:55 | PT.OTN ---
Current Diagnoses Superior glenoid labrum lesion of left shoulder, subsequent encounter (01/12/19) Physical Therapy Treatment Note PT-OP-A Visit Information Start: 12/01/18 10:07 Freq: Status: Active Protocol: Document 01/12/19 07:36 BS (Rec: 01/12/19 07:44 BS [id number]) Out-Patient Physical Therapy Visit Information Visit Information Visit Type Treatment Note Visit Note Pt tolerated treatment focusing on AAROM. Visit Start Time 07:30 Visit Stop Time 08:25 Total Visit Minutes 55 Visit Number 10 PT-OP-B Current Condition Start: 12/01/18 10:07 Freq: Status: Active Protocol: Document 12/01/18 10:09 EA (Rec: 12/01/18 10:26 EA [id number]) Current Condition History of Current Condition Onset Date S/P 11/15/18 Left shoulder arthroscopic labral tear Current Complaints Left shoulder pain and weakness History of Current Condition Patient had work injury in 2016 when 2x/4 wood fell and hit his left shoulder and neck . Patient underwent cervical surgery on April/2017 due to shoulder numbness and weakness per patient. Pt reports underwent formal PT after that surgery and went well. Pt today is 2 weeks post op L shoulder labral tear arthroscopic repair. Pt is has dr. Alfonso exercises protocol to follow. Prior Treatments and Tests S/P left shoulder arthroscopic labral repair 11/15/18 Future Testing and Treatments Planned None identified Treatment Goals Patient/Caregiver Goals Patient wants to get back to previous function; states I don't assume I would get back to previous level, but at least not disable. 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- Recreation/Hobbies No limitation 1 1/2 years ago Current Functional Impairments (Reported) Functional Limitations- ADL's Independent; unable to drive at this time Functional Limitations- Mobility/Gait Indep Functional Limitations- Work/School On disability since the last neck/shoulder injury 2016 Functional Limitations- Recreation/ Unable Hobbies PT-OP-C Subjective Start: 12/01/18 10:07 Freq: Status: Active Protocol: Document 01/12/19 07:36 BS (Rec: 01/12/19 07:44 BS [id number]) OP-PT Subjective Patient Comments Patient Comments Pt reports that he slept horrible last night, has pulleys set up at home now to do for HEP. PT-OP-E Functional Tests Start: 12/01/18 10:07 Freq: Status: Active Protocol: Document 12/01/18 10:29 EA (Rec: 12/01/18 13:00 EA [id number]) Functional Tests Apley's Scratch Test Action 1: The subject is instructed to touch the opposite shoulder with his/her hand. This motion checks Glenohumeral adduction, internal rotation , horizontal adduction and scapular protraction Action 2: The subject is instructed to place his/her arm overhead and reach behind the neck to touch his/her upper back. This motion checks Glenohumeral abduction, external rotation and scapular upward rotation and elevation. Action 3: The subject puts his/her hand on the lower back and reaches upward as far as possible. This motion checks glenohumeral adduction, internal rotation and scapular retraction with downward rotation Action 1- Left Unable Action 1- Right behind opposite shoulder Action 2- Left unable Action 2- Right T1 Action 3- Left Unable Action 3- Right T9 PT-OP-F Manual Assessment Start: 12/01/18 10:07 Freq: Status: Active Protocol: Document 12/01/18 10:29 EA (Rec: 12/01/18 13:00 EA [id number]) Manual Assessments Soft Tissue Assessment Soft Tissue Mobility Assessment unable to assess due to muscle guarding and pain Joint Mobility Assessment Joint Mobility Assessment Unable to assess due to muscle guarding PT-OP-J Posture/Palpation/Skin Start: 12/01/18 10:07 Freq: Status: Active Protocol: Document 12/01/18 10:29 EA (Rec: 12/01/18 13:00 EA [id number]) Posture Evaluation Position Standing Evaluation View post/lat Head/C-Spine Posture Neutral Position T-Spine Posture Neutral Shoulder Posture Neutral Scapula Posture (L) Neutral (L) Protracted Arm Posture (L) Neutral (R) Neutral Palpation Assessment Location One Palpation Location Left Anterior upper and lower, posterior lower shoulder Palpation Findings Soft Tissue Tightness Muscle Guarding Tenderness Palpation Details Grade 3/4 tenderness with muscle guarding PT-OP-K Range of Motion Start: 12/01/18 10:07 Freq: Status: Active Protocol: Document 12/01/18 10:29 EA (Rec: 12/01/18 13:00 EA [id number]) Shoulder Goniometric Range of Motion Shoulder Measured in Degrees Left Passive Shoulder ROM WFL Yes Testing Position supine sitting Flexion 25 Extension 40 Abduction 30 Right Active Shoulder ROM WFL Yes Shoulder ROM Limitations Shoulder ROM Limitations Soft Tissue Tightness Pain Comments Other shoulder ROM is not tested due to healing pre- cautions Elbow/Forearm Range of Motion Elbow/Forearm Measured in Degrees Left Active Elbow/Forearm ROM WFL Yes Wrist Goniometric Range of Motion Wrist Measured in Degrees Left Wrist ROM WFL Yes PT-OP-M Strength Start: 12/01/18 10:07 Freq: Status: Active Protocol: Document 12/01/18 10:29 EA (Rec: 12/01/18 13:00 EA [id number]) Scapula Strength Scapula Manual Muscle Testing Left Elevation (C4) 3+ Fair+ Adduction 3+ Fair+ Abduction 3+ Fair+ Depression 3+ Fair+ Reason Not Measured Orthopedic Precautions Pain Comments Pain increased with higher resistance Shoulder Strength Shoulder Manual Muscle Testing Right Reason Not Measured WFL Left Reason Not Measured Orthopedic Precautions PT-OP-Q Treatments Start: 12/01/18 10:07 Freq: Status: Active Protocol: Document 01/12/19 07:36 BS (Rec: 01/12/19 07:44 BS [id number]) Cardio Equipment Upper Body Ergometer (UBE) Duration (Minutes) 5 Seat Position 12 Height 1.5 Other 5% effort to left arm Therapeutic Exercises Supine Exercises 7 Supine Exercise Name Tbar ER AAROM Reps/Minutes x20 each Comments pain free range 6 Supine Exercise Name Tbar serratus punch Resistance 2# Reps/Minutes 2x10 3 Supine Exercise Name T-bar flexion OH AAROM Reps/Minutes x 15 reps x 2 Comments pain free range 1 Supine Exercise Name Shoulder gentle PROM: flex/ER Reps/Minutes x10 reps, light overpressure Comments pain free range Sitting Exercises 5 Sitting Exercise Name Shoulder patrice: Flex/scaption Reps/Minutes 2 min each Comments pain free range Standing Exercises 6 Standing Exercise Name Patrice AAROM IR behind back Side left Reps/Minutes x5, 10 sec hold Comments gentle stretch 3 Standing Exercise Name T-bar shoulder ext, abduction, flexion, scaption Reps/Minutes 2x15 Manual Therapy Treatment Joint Mobilizations 1 Joint Post/Ant/Inferior Reps/Duration 10 min total Comments mobilization followed by PROM flex, abd, ER as tolerated. Grade 2. PT-OP-R Modalities Start: 12/01/18 10:07 Freq: Status: Active Protocol: Document 01/12/19 07:36 BS (Rec: 01/12/19 11:32 BS [id number]) Hot Pack/Cold Pack Treatment Cold Pack Patient Position Hooklying Treatment Duration (minutes) 10 Patient Tolerance Good PT-OP-T Assessment and Plan Start: 12/01/18 10:07 Freq: Status: Active Protocol: Document 01/12/19 07:36 BS (Rec: 01/12/19 11:32 BS [id number]) Physical Therapy Assessment Assessment Summary Assessment Pt tolerated PT session well, focusing on AAROM, AROM, and PROM/join mobilizations. Pt continues to report that his L shoulder is very painful and he demonstrates significant msucle guarding during PROM. Physical Therapy Plan Next Visit Focus/Plan Next Note Type Treatment Note Next Visit Plan Initiate L shoulder isometrics , light RC strengthening, and monitor pain.
--- NOTE | 2019-01-18 11:16 | PT.OTN ---
Current Diagnoses Superior glenoid labrum lesion of left shoulder, subsequent encounter (01/18/19) Physical Therapy Treatment Note PT-OP-A Visit Information Start: 12/01/18 10:07 Freq: Status: Active Protocol: Document 01/18/19 11:05 SA (Rec: 01/18/19 11:16 SA [id number]) Out-Patient Physical Therapy Visit Information Visit Information Visit Type Treatment Note Visit Start Time 07:33 Visit Stop Time 08:22 Total Visit Minutes 49 Visit Number 11 PT-OP-B Current Condition Start: 12/01/18 10:07 Freq: Status: Active Protocol: Document 12/01/18 10:09 EA (Rec: 12/01/18 10:26 EA [id number]) Current Condition History of Current Condition Onset Date S/P 11/15/18 Left shoulder arthroscopic labral tear Current Complaints Left shoulder pain and weakness History of Current Condition Patient had work injury in 2016 when 2x/4 wood fell and hit his left shoulder and neck . Patient underwent cervical surgery on April/2017 due to shoulder numbness and weakness per patient. Pt reports underwent formal PT after that surgery and went well. Pt today is 2 weeks post op L shoulder labral tear arthroscopic repair. Pt is has dr. Alfonso exercises protocol to follow. Prior Treatments and Tests S/P left shoulder arthroscopic labral repair 11/15/18 Future Testing and Treatments Planned None identified Treatment Goals Patient/Caregiver Goals Patient wants to get back to previous function; states I don't assume I would get back to previous level, but at least not disable. 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 Using pulleys at home. Reports feeling sore from doing yard work this weekend. PT-OP-E Functional Tests Start: 12/01/18 10:07 Freq: Status: Active Protocol: Document 12/01/18 10:29 EA (Rec: 12/01/18 13:00 EA [id number]) Functional Tests Apley's Scratch Test Action 1: The subject is instructed to touch the opposite shoulder with his/her hand. This motion checks Glenohumeral adduction, internal rotation , horizontal adduction and scapular protraction Action 2: The subject is instructed to place his/her arm overhead and reach behind the neck to touch his/her upper back. This motion checks Glenohumeral abduction, external rotation and scapular upward rotation and elevation. Action 3: The subject puts his/her hand on the lower back and reaches upward as far as possible. This motion checks glenohumeral adduction, internal rotation and scapular retraction with downward rotation Action 1- Left Unable Action 1- Right behind opposite shoulder Action 2- Left unable Action 2- Right T1 Action 3- Left Unable Action 3- Right T9 PT-OP-F Manual Assessment Start: 12/01/18 10:07 Freq: Status: Active Protocol: Document 12/01/18 10:29 EA (Rec: 12/01/18 13:00 EA [id number]) Manual Assessments Soft Tissue Assessment Soft Tissue Mobility Assessment unable to assess due to muscle guarding and pain Joint Mobility Assessment Joint Mobility Assessment Unable to assess due to muscle guarding PT-OP-J Posture/Palpation/Skin Start: 12/01/18 10:07 Freq: Status: Active Protocol: Document 12/01/18 10:29 EA (Rec: 12/01/18 13:00 EA [id number]) Posture Evaluation Position Standing Evaluation View post/lat Head/C-Spine Posture Neutral Position T-Spine Posture Neutral Shoulder Posture Neutral Scapula Posture (L) Neutral (L) Protracted Arm Posture (L) Neutral (R) Neutral Palpation Assessment Location One Palpation Location Left Anterior upper and lower, posterior lower shoulder Palpation Findings Soft Tissue Tightness Muscle Guarding Tenderness Palpation Details Grade 3/4 tenderness with muscle guarding PT-OP-K Range of Motion Start: 12/01/18 10:07 Freq: Status: Active Protocol: Document 12/01/18 10:29 EA (Rec: 12/01/18 13:00 EA [id number]) Shoulder Goniometric Range of Motion Shoulder Measured in Degrees Left Passive Shoulder ROM WFL Yes Testing Position supine sitting Flexion 25 Extension 40 Abduction 30 Right Active Shoulder ROM WFL Yes Shoulder ROM Limitations Shoulder ROM Limitations Soft Tissue Tightness Pain Comments Other shoulder ROM is not tested due to healing pre- cautions Elbow/Forearm Range of Motion Elbow/Forearm Measured in Degrees Left Active Elbow/Forearm ROM WFL Yes Wrist Goniometric Range of Motion Wrist Measured in Degrees Left Wrist ROM WFL Yes PT-OP-M Strength Start: 12/01/18 10:07 Freq: Status: Active Protocol: Document 12/01/18 10:29 EA (Rec: 12/01/18 13:00 EA [id number]) Scapula Strength Scapula Manual Muscle Testing Left Elevation (C4) 3+ Fair+ Adduction 3+ Fair+ Abduction 3+ Fair+ Depression 3+ Fair+ Reason Not Measured Orthopedic Precautions Pain Comments Pain increased with higher resistance Shoulder Strength Shoulder Manual Muscle Testing Right Reason Not Measured WFL Left Reason Not Measured Orthopedic Precautions PT-OP-Q Treatments Start: 12/01/18 10:07 Freq: Status: Active Protocol: Document 01/18/19 11:05 SA (Rec: 01/18/19 11:16 SA [id number]) Cardio Equipment Upper Body Ergometer (UBE) Duration (Minutes) 5 Seat Position 12 Height 1.5 Therapeutic Exercises Supine Exercises 7 Supine Exercise Name Tbar ER AAROM Reps/Minutes x20 each Comments pain free range 6 Supine Exercise Name Tbar serratus punch Resistance 2# Reps/Minutes 2x10 5 Supine Exercise Name T-bar press Resistance 2 lbs Reps/Minutes x 15 reps x 2 3 Supine Exercise Name T-bar flexion OH AAROM Reps/Minutes x 15 reps x 2 Comments pain free range 1 Supine Exercise Name Shoulder gentle PROM: flex/ER Reps/Minutes x10 reps, light overpressure Comments pain free range Sitting Exercises 5 Sitting Exercise Name Shoulder patrice: Flex/scaption Reps/Minutes 2 min each Comments pain free range Standing Exercises 6 Standing Exercise Name Patrice AAROM IR behind back Side left Reps/Minutes x5, 10 sec hold Comments gentle stretch 3 Standing Exercise Name T-bar shoulder ext, abduction, flexion, scaption Reps/Minutes 2x15 Manual Therapy Treatment Joint Mobilizations 1 Joint Post/Ant/Inferior Reps/Duration 10 min total Comments mobilization followed by PROM flex, abd, ER as tolerated. Grade 2. PT-OP-R Modalities Start: 12/01/18 10:07 Freq: Status: Active Protocol: Document 01/18/19 11:05 SA (Rec: 01/18/19 11:16 SA [email or web address]) Hot Pack/Cold Pack Treatment Cold Pack Location L shoulder Patient Position Supine Treatment Duration (minutes) 10 Patient Tolerance Good PT-OP-T Assessment and Plan Start: 12/01/18 10:07 Freq: Status: Active Protocol: Document 01/18/19 11:05 SA (Rec: 01/18/19 11:16 SA [id number]) Physical Therapy Assessment Assessment Summary Assessment Pt tolerated AAROM and passive stretching and joint mobs well. Isometrics tolerated well with cues for decreased pressure and sustaining. To continue with HEP daily. Physical Therapy Plan Next Visit Focus/Plan Next Note Type Treatment Note Next Visit Plan Continue with isometrics, RC strengthening and daily HEP.
--- NOTE | 2019-01-24 13:05 | PT.OTN ---
Current Diagnoses Superior glenoid labrum lesion of left shoulder, subsequent encounter (01/24/19) Physical Therapy Treatment Note PT-OP-A Visit Information Start: 12/01/18 10:07 Freq: Status: Active Protocol: Document 01/24/19 08:11 EA (Rec: 01/24/19 08:17 EA [id number]) Out-Patient Physical Therapy Visit Information Visit Information Visit Type Treatment Note Visit Note Pt tolerated treatment focusing on AAROM. Visit Start Time 07:30 Visit Stop Time 08:18 Total Visit Minutes 48 Visit Number 12 PT-OP-B Current Condition Start: 12/01/18 10:07 Freq: Status: Active Protocol: Document 12/01/18 10:09 EA (Rec: 12/01/18 10:26 EA [id number]) Current Condition History of Current Condition Onset Date S/P 11/15/18 Left shoulder arthroscopic labral tear Current Complaints Left shoulder pain and weakness History of Current Condition Patient had work injury in 2016 when 2x/4 wood fell and hit his left shoulder and neck . Patient underwent cervical surgery on April/2017 due to shoulder numbness and weakness per patient. Pt reports underwent formal PT after that surgery and went well. Pt today is 2 weeks post op L shoulder labral tear arthroscopic repair. Pt is has dr. Alfonso exercises protocol to follow. Prior Treatments and Tests S/P left shoulder arthroscopic labral repair 11/15/18 Future Testing and Treatments Planned None identified Treatment Goals Patient/Caregiver Goals Patient wants to get back to previous function; states I don't assume I would get back to previous level, but at least not disable. 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- Recreation/Hobbies No limitation 1 1/2 years ago Current Functional Impairments (Reported) Functional Limitations- ADL's Independent; unable to drive at this time Functional Limitations- Mobility/Gait Indep Functional Limitations- Work/School On disability since the last neck/shoulder injury 2016 Functional Limitations- Recreation/ Unable Hobbies PT-OP-C Subjective Start: 12/01/18 10:07 Freq: Status: Active Protocol: Document 01/24/19 08:11 EA (Rec: 01/24/19 08:17 EA [id number]) OP-PT Subjective Patient Comments Patient Comments Pt reports night pain with quick movement; states he has been using his arm at work though he knows his pre- caution. Pt also reports very compliant with HEP. PT-OP-E Functional Tests Start: 12/01/18 10:07 Freq: Status: Active Protocol: Document 12/01/18 10:29 EA (Rec: 12/01/18 13:00 EA [id number]) Functional Tests Apley's Scratch Test Action 1: The subject is instructed to touch the opposite shoulder with his/her hand. This motion checks Glenohumeral adduction, internal rotation , horizontal adduction and scapular protraction Action 2: The subject is instructed to place his/her arm overhead and reach behind the neck to touch his/her upper back. This motion checks Glenohumeral abduction, external rotation and scapular upward rotation and elevation. Action 3: The subject puts his/her hand on the lower back and reaches upward as far as possible. This motion checks glenohumeral adduction, internal rotation and scapular retraction with downward rotation Action 1- Left Unable Action 1- Right behind opposite shoulder Action 2- Left unable Action 2- Right T1 Action 3- Left Unable Action 3- Right T9 PT-OP-F Manual Assessment Start: 12/01/18 10:07 Freq: Status: Active Protocol: Document 12/01/18 10:29 EA (Rec: 12/01/18 13:00 EA [id number]) Manual Assessments Soft Tissue Assessment Soft Tissue Mobility Assessment unable to assess due to muscle guarding and pain Joint Mobility Assessment Joint Mobility Assessment Unable to assess due to muscle guarding PT-OP-J Posture/Palpation/Skin Start: 12/01/18 10:07 Freq: Status: Active Protocol: Document 12/01/18 10:29 EA (Rec: 12/01/18 13:00 EA [id number]) Posture Evaluation Position Standing Evaluation View post/lat Head/C-Spine Posture Neutral Position T-Spine Posture Neutral Shoulder Posture Neutral Scapula Posture (L) Neutral (L) Protracted Arm Posture (L) Neutral (R) Neutral Palpation Assessment Location One Palpation Location Left Anterior upper and lower, posterior lower shoulder Palpation Findings Soft Tissue Tightness Muscle Guarding Tenderness Palpation Details Grade 3/4 tenderness with muscle guarding PT-OP-K Range of Motion Start: 12/01/18 10:07 Freq: Status: Active Protocol: Document 12/01/18 10:29 EA (Rec: 12/01/18 13:00 EA [id number]) Shoulder Goniometric Range of Motion Shoulder Measured in Degrees Left Passive Shoulder ROM WFL Yes Testing Position supine sitting Flexion 25 Extension 40 Abduction 30 Right Active Shoulder ROM WFL Yes Shoulder ROM Limitations Shoulder ROM Limitations Soft Tissue Tightness Pain Comments Other shoulder ROM is not tested due to healing pre- cautions Elbow/Forearm Range of Motion Elbow/Forearm Measured in Degrees Left Active Elbow/Forearm ROM WFL Yes Wrist Goniometric Range of Motion Wrist Measured in Degrees Left Wrist ROM WFL Yes PT-OP-M Strength Start: 12/01/18 10:07 Freq: Status: Active Protocol: Document 12/01/18 10:29 EA (Rec: 12/01/18 13:00 EA [id number]) Scapula Strength Scapula Manual Muscle Testing Left Elevation (C4) 3+ Fair+ Adduction 3+ Fair+ Abduction 3+ Fair+ Depression 3+ Fair+ Reason Not Measured Orthopedic Precautions Pain Comments Pain increased with higher resistance Shoulder Strength Shoulder Manual Muscle Testing Right Reason Not Measured WFL Left Reason Not Measured Orthopedic Precautions PT-OP-Q Treatments Start: 12/01/18 10:07 Freq: Status: Active Protocol: Document 01/24/19 08:11 EA (Rec: 01/24/19 08:17 EA [id number]) Therapeutic Exercises Supine Exercises 7 Supine Exercise Name Shoulder ER, Tbar AAROM Reps/Minutes x20 Comments pain free range 6 Supine Exercise Name Serratus Punch Resistance 4# Reps/Minutes 2x10 5 Supine Exercise Name T-bar press Resistance 4 lbs Reps/Minutes x 15 reps x 2 Comments close grp 3 Supine Exercise Name T-bar flexion OH AAROM Reps/Minutes x 15 reps x 2 Comments pain free range 1 Supine Exercise Name Shoulder gentle PROM: flex/abd /IR/ER Reps/Minutes x 10 reps, light over pressure Comments pain free range Sidelying Exercises 1 Sidelying Exercise Name ABD Reps/Minutes x 15 reps x 2 at 90 deg Sitting Exercises 5 Sitting Exercise Name Shoulder patrice: Flex/scaption Reps/Minutes 2 min each Comments pain free range Standing Exercises 3 Standing Exercise Name T-bar shoulder ext, abduction, flexion, scaption Reps/Minutes 2x15 Comments range with no shoulder shrugs 1 Standing Exercise Name T-bar extension Equipment Used 2# Reps/Minutes x 15 reps x 2 PT-OP-R Modalities Start: 12/01/18 10:07 Freq: Status: Active Protocol: Document 01/24/19 08:17 EA (Rec: 01/24/19 08:17 EA [id number]) Hot Pack/Cold Pack Treatment Cold Pack Location L shoulder Patient Position Supine Treatment Duration (minutes) 10 Patient Tolerance Good PT-OP-T Assessment and Plan Start: 12/01/18 10:07 Freq: Status: Active Protocol: Document 01/24/19 08:11 EA (Rec: 01/24/19 08:17 EA [id number]) Physical Therapy Assessment Assessment Summary Assessment Requires cues to prevent shrugs in all shoulder exercises. Decreased ROM still noted and advised patient to cont working on his ROM exercises. Physical Therapy Plan Next Visit Focus/Plan Next Note Type Treatment Note Next Visit Plan Fill out quick DASH, take shoulder measurement PROM/AROM , MMT. Cont with current plan of improving ROM.
--- NOTE | 2019-01-28 11:19 | PT.OTN ---
Current Diagnoses Superior glenoid labrum lesion of left shoulder, subsequent encounter (01/28/19) Physical Therapy Treatment Note PT-OP-A Visit Information Start: 12/01/18 10:07 Freq: Status: Active Protocol: Document 01/28/19 09:50 SA (Rec: 01/28/19 11:19 SA [email or web address]) Out-Patient Physical Therapy Visit Information Visit Information Visit Type Treatment Note Visit Start Time 07:30 Visit Stop Time 08:20 Total Visit Minutes 50 Visit Number 13 Number of DIRECTOR OF INSTITUTIONAL SALES Visits 1 PT-OP-B Current Condition Start: 12/01/18 10:07 Freq: Status: Active Protocol: Document 12/01/18 10:09 EA (Rec: 12/01/18 10:26 EA [id number]) Current Condition History of Current Condition Onset Date S/P 11/15/18 Left shoulder arthroscopic labral tear Current Complaints Left shoulder pain and weakness History of Current Condition Patient had work injury in 2016 when 2x/4 wood fell and hit his left shoulder and neck . Patient underwent cervical surgery on April/2017 due to shoulder numbness and weakness per patient. Pt reports underwent formal PT after that surgery and went well. Pt today is 2 weeks post op L shoulder labral tear arthroscopic repair. Pt is has dr. Alfonso exercises protocol to follow. Prior Treatments and Tests S/P left shoulder arthroscopic labral repair 11/15/18 Future Testing and Treatments Planned None identified Treatment Goals Patient/Caregiver Goals Patient wants to get back to previous function; states I don't assume I would get back to previous level, but at least not disable. 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- Recreation/Hobbies No limitation 1 1/2 years ago Current Functional Impairments (Reported) Functional Limitations- ADL's Independent; unable to drive at this time Functional Limitations- Mobility/Gait Indep Functional Limitations- Work/School On disability since the last neck/shoulder injury 2016 Functional Limitations- Recreation/ Unable Hobbies PT-OP-C Subjective Start: 12/01/18 10:07 Freq: Status: Active Protocol: Document 01/28/19 09:50 SA (Rec: 01/28/19 11:19 SA [email or web address]) OP-PT Subjective Patient Comments Patient Comments Pt reports feeling sore and tight today, has been working a lot and doing HEP at home every day, uses ice daily for pain control also. PT-OP-E Functional Tests Start: 12/01/18 10:07 Freq: Status: Active Protocol: Document 12/01/18 10:29 EA (Rec: 12/01/18 13:00 EA [id number]) Functional Tests Apley's Scratch Test Action 1: The subject is instructed to touch the opposite shoulder with his/her hand. This motion checks Glenohumeral adduction, internal rotation , horizontal adduction and scapular protraction Action 2: The subject is instructed to place his/her arm overhead and reach behind the neck to touch his/her upper back. This motion checks Glenohumeral abduction, external rotation and scapular upward rotation and elevation. Action 3: The subject puts his/her hand on the lower back and reaches upward as far as possible. This motion checks glenohumeral adduction, internal rotation and scapular retraction with downward rotation Action 1- Left Unable Action 1- Right behind opposite shoulder Action 2- Left unable Action 2- Right T1 Action 3- Left Unable Action 3- Right T9 PT-OP-F Manual Assessment Start: 12/01/18 10:07 Freq: Status: Active Protocol: Document 12/01/18 10:29 EA (Rec: 12/01/18 13:00 EA [id number]) Manual Assessments Soft Tissue Assessment Soft Tissue Mobility Assessment unable to assess due to muscle guarding and pain Joint Mobility Assessment Joint Mobility Assessment Unable to assess due to muscle guarding PT-OP-J Posture/Palpation/Skin Start: 12/01/18 10:07 Freq: Status: Active Protocol: Document 12/01/18 10:29 EA (Rec: 12/01/18 13:00 EA [id number]) Posture Evaluation Position Standing Evaluation View post/lat Head/C-Spine Posture Neutral Position T-Spine Posture Neutral Shoulder Posture Neutral Scapula Posture (L) Neutral (L) Protracted Arm Posture (L) Neutral (R) Neutral Palpation Assessment Location One Palpation Location Left Anterior upper and lower, posterior lower shoulder Palpation Findings Soft Tissue Tightness Muscle Guarding Tenderness Palpation Details Grade 3/4 tenderness with muscle guarding PT-OP-K Range of Motion Start: 12/01/18 10:07 Freq: Status: Active Protocol: Document 12/01/18 10:29 EA (Rec: 12/01/18 13:00 EA [id number]) Shoulder Goniometric Range of Motion Shoulder Measured in Degrees Left Passive Shoulder ROM WFL Yes Testing Position supine sitting Flexion 25 Extension 40 Abduction 30 Right Active Shoulder ROM WFL Yes Shoulder ROM Limitations Shoulder ROM Limitations Soft Tissue Tightness Pain Comments Other shoulder ROM is not tested due to healing pre- cautions Elbow/Forearm Range of Motion Elbow/Forearm Measured in Degrees Left Active Elbow/Forearm ROM WFL Yes Wrist Goniometric Range of Motion Wrist Measured in Degrees Left Wrist ROM WFL Yes PT-OP-M Strength Start: 12/01/18 10:07 Freq: Status: Active Protocol: Document 12/01/18 10:29 EA (Rec: 12/01/18 13:00 EA [id number]) Scapula Strength Scapula Manual Muscle Testing Left Elevation (C4) 3+ Fair+ Adduction 3+ Fair+ Abduction 3+ Fair+ Depression 3+ Fair+ Reason Not Measured Orthopedic Precautions Pain Comments Pain increased with higher resistance Shoulder Strength Shoulder Manual Muscle Testing Right Reason Not Measured WFL Left Reason Not Measured Orthopedic Precautions PT-OP-Q Treatments Start: 12/01/18 10:07 Freq: Status: Active Protocol: Document 01/28/19 09:50 SA (Rec: 01/28/19 11:19 SA [email or web address]) Cardio Equipment Upper Body Ergometer (UBE) Duration (Minutes) 5 RPM 60 Seat Position 12 Therapeutic Exercises Supine Exercises 7 Supine Exercise Name Shoulder ER, Tbar AAROM Reps/Minutes x20 Comments pain free range 6 Supine Exercise Name Serratus Punch Resistance 4# Reps/Minutes 2x10 5 Supine Exercise Name T-bar press Resistance 4 lbs Reps/Minutes x 15 reps x 2 Comments close grp 1 Supine Exercise Name Shoulder gentle PROM: flex/abd /IR/ER Reps/Minutes 15 reps Comments pain free range Sitting Exercises 5 Sitting Exercise Name Shoulder patrice: Flex/scaption Reps/Minutes 2 min each Comments pain free range Standing Exercises 6 Standing Exercise Name Patrice AAROM IR behind back Side left Equipment Used IR Reps/Minutes x5, 10 sec hold Comments gentle stretch 1 Standing Exercise Name T-bar extension Equipment Used 2# Reps/Minutes x 15 reps x 2 Manual Therapy Treatment Soft Tissue Mobilization STM/ MFR Body Location L UT/anterior shoulder Mobilization Type Myofascial Release Rolling Sustained Pressure Intensity/Depth Moderate Comments Passive pec stretching Joint Mobilizations 1 Joint Post/Ant/Inferior Comments mobilization followed by PROM flex, abd, ER as tolerated. Grade 2. PT-OP-R Modalities Start: 12/01/18 10:07 Freq: Status: Active Protocol: Document 01/28/19 09:50 SA (Rec: 01/28/19 11:19 SA [email or web address]) Hot Pack/Cold Pack Treatment Ice Massage Location L anterior shoulder Patient Position Supine Treatment Duration (minutes) 5 Patient Tolerance Good PT-OP-T Assessment and Plan Start: 12/01/18 10:07 Freq: Status: Active Protocol: Document 01/28/19 09:50 SA (Rec: 01/28/19 11:19 SA [email or web address]) Physical Therapy Assessment Assessment Summary Assessment Pt focused on ROM exercises this past week with increased work activities resulting in increased anterior shoulder soreness. Limited IR, ER and shoulder Flexion noted with significant muscle guarding. Physical Therapy Plan Next Visit Focus/Plan Next Note Type Treatment Note Next Visit Plan Cont to progress AROM exercise as well as PROM stretching. Fill out quick DASH.
--- NOTE | 2019-02-01 10:47 | PT.OTN ---
Current Diagnoses Superior glenoid labrum lesion of left shoulder, subsequent encounter (02/01/19) Physical Therapy Treatment Note PT-OP-A Visit Information Start: 12/01/18 10:07 Freq: Status: Active Protocol: Document 02/01/19 10:32 SA (Rec: 02/01/19 10:47 SA [email or web address]) Out-Patient Physical Therapy Visit Information Visit Information Visit Type Treatment Note Visit Start Time 07:30 Visit Stop Time 08:20 Total Visit Minutes 50 Visit Number 14 Number of ADMINISTRATOR Visits 2 PT-OP-B Current Condition Start: 12/01/18 10:07 Freq: Status: Active Protocol: Document 12/01/18 10:09 EA (Rec: 12/01/18 10:26 EA [id number]) Current Condition History of Current Condition Onset Date S/P 11/15/18 Left shoulder arthroscopic labral tear Current Complaints Left shoulder pain and weakness History of Current Condition Patient had work injury in 2016 when 2x/4 wood fell and hit his left shoulder and neck . Patient underwent cervical surgery on April/2017 due to shoulder numbness and weakness per patient. Pt reports underwent formal PT after that surgery and went well. Pt today is 2 weeks post op L shoulder labral tear arthroscopic repair. Pt is has dr. Alfonso exercises protocol to follow. Prior Treatments and Tests S/P left shoulder arthroscopic labral repair 11/15/18 Future Testing and Treatments Planned None identified Treatment Goals Patient/Caregiver Goals Patient wants to get back to previous function; states I don't assume I would get back to previous level, but at least not disable. 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 Reviewed HEP and education on which exerises to focus on. PT-OP-E Functional Tests Start: 12/01/18 10:07 Freq: Status: Active Protocol: Document 12/01/18 10:29 EA (Rec: 12/01/18 13:00 EA [id number]) Functional Tests Apley's Scratch Test Action 1: The subject is instructed to touch the opposite shoulder with his/her hand. This motion checks Glenohumeral adduction, internal rotation , horizontal adduction and scapular protraction Action 2: The subject is instructed to place his/her arm overhead and reach behind the neck to touch his/her upper back. This motion checks Glenohumeral abduction, external rotation and scapular upward rotation and elevation. Action 3: The subject puts his/her hand on the lower back and reaches upward as far as possible. This motion checks glenohumeral adduction, internal rotation and scapular retraction with downward rotation Action 1- Left Unable Action 1- Right behind opposite shoulder Action 2- Left unable Action 2- Right T1 Action 3- Left Unable Action 3- Right T9 PT-OP-F Manual Assessment Start: 12/01/18 10:07 Freq: Status: Active Protocol: Document 12/01/18 10:29 EA (Rec: 12/01/18 13:00 EA [id number]) Manual Assessments Soft Tissue Assessment Soft Tissue Mobility Assessment unable to assess due to muscle guarding and pain Joint Mobility Assessment Joint Mobility Assessment Unable to assess due to muscle guarding PT-OP-J Posture/Palpation/Skin Start: 12/01/18 10:07 Freq: Status: Active Protocol: Document 12/01/18 10:29 EA (Rec: 12/01/18 13:00 EA [id number]) Posture Evaluation Position Standing Evaluation View post/lat Head/C-Spine Posture Neutral Position T-Spine Posture Neutral Shoulder Posture Neutral Scapula Posture (L) Neutral (L) Protracted Arm Posture (L) Neutral (R) Neutral Palpation Assessment Location One Palpation Location Left Anterior upper and lower, posterior lower shoulder Palpation Findings Soft Tissue Tightness Muscle Guarding Tenderness Palpation Details Grade 3/4 tenderness with muscle guarding PT-OP-K Range of Motion Start: 12/01/18 10:07 Freq: Status: Active Protocol: Document 12/01/18 10:29 EA (Rec: 12/01/18 13:00 EA [id number]) Shoulder Goniometric Range of Motion Shoulder Measured in Degrees Left Passive Shoulder ROM WFL Yes Testing Position supine sitting Flexion 25 Extension 40 Abduction 30 Right Active Shoulder ROM WFL Yes Shoulder ROM Limitations Shoulder ROM Limitations Soft Tissue Tightness Pain Comments Other shoulder ROM is not tested due to healing pre- cautions Elbow/Forearm Range of Motion Elbow/Forearm Measured in Degrees Left Active Elbow/Forearm ROM WFL Yes Wrist Goniometric Range of Motion Wrist Measured in Degrees Left Wrist ROM WFL Yes PT-OP-M Strength Start: 12/01/18 10:07 Freq: Status: Active Protocol: Document 12/01/18 10:29 EA (Rec: 12/01/18 13:00 EA [id number]) Scapula Strength Scapula Manual Muscle Testing Left Elevation (C4) 3+ Fair+ Adduction 3+ Fair+ Abduction 3+ Fair+ Depression 3+ Fair+ Reason Not Measured Orthopedic Precautions Pain Comments Pain increased with higher resistance Shoulder Strength Shoulder Manual Muscle Testing Right Reason Not Measured WFL Left Reason Not Measured Orthopedic Precautions PT-OP-Q Treatments Start: 12/01/18 10:07 Freq: Status: Active Protocol: Document 02/01/19 10:32 SA (Rec: 02/01/19 10:47 SA [email or web address]) Cardio Equipment Upper Body Ergometer (UBE) Duration (Minutes) 6 RPM 55 Seat Position 12 Therapeutic Exercises Supine Exercises 7 Supine Exercise Name Shoulder ER, Tbar AAROM Reps/Minutes x20 Comments pain free range 6 Supine Exercise Name Serratus Punch Resistance 4# Reps/Minutes 2x10 5 Supine Exercise Name T-bar press Resistance 4 lbs Reps/Minutes x 15 reps x 2 Comments close grp 3 Supine Exercise Name T-bar flexion OH AAROM Side bilateral Equipment Used 3# Reps/Minutes x 15 reps x 2 Comments pain free range 1 Supine Exercise Name Shoulder gentle PROM: flex/abd /IR/ER Reps/Minutes 15 reps Comments pain free range Sidelying Exercises 1 Sidelying Exercise Name ABD Equipment Used 2# Reps/Minutes x 15 reps x 2 at 90 deg Sitting Exercises 5 Sitting Exercise Name Shoulder Jcarlos, Scaption and Flexion Reps/Minutes 2 min each Comments pain free range Standing Exercises 6 Standing Exercise Name Jcarlos AAROM IR behind back Side left Equipment Used IR Reps/Minutes x5, 10 sec hold Comments gentle stretch 3 Standing Exercise Name T-bar shoulder ext, abduction, flexion, scaption Reps/Minutes 2x15 Comments range with no shoulder shrugs Manual Therapy Treatment Joint Mobilizations 1 Joint Post/Ant/Inferior Comments mobilization followed by PROM flex, abd, ER as tolerated. Grade 2. PT-OP-R Modalities Start: 12/01/18 10:07 Freq: Status: Active Protocol: Document 02/01/19 10:32 SA (Rec: 02/01/19 10:47 SA [email or web address]) Hot Pack/Cold Pack Treatment Ice Massage Location L anterior shoulder Patient Position Supine Treatment Duration (minutes) 5 Patient Tolerance Good PT-OP-T Assessment and Plan Start: 12/01/18 10:07 Freq: Status: Active Protocol: Document 02/01/19 10:32 SA (Rec: 02/01/19 10:47 SA [email or web address]) Physical Therapy Assessment Assessment Summary Assessment Pt with continued capsular tightness, specifically IR/ER and FLEx, ABD. Point tender supraspinatus tendon addressed with ice massage at end of session. Physical Therapy Plan Next Visit Focus/Plan Next Note Type Treatment Note Next Visit Plan Completed Quick DASH. Cont to progress AROM and shoulder strengthening.
--- NOTE | 2019-02-04 08:39 | PT.OTN ---
Current Diagnoses Superior glenoid labrum lesion of left shoulder, subsequent encounter (02/04/19) Physical Therapy Treatment Note PT-OP-A Visit Information Start: 12/01/18 10:07 Freq: Status: Active Protocol: Document 02/04/19 08:30 SA (Rec: 02/04/19 08:38 SA [email or web address]) Out-Patient Physical Therapy Visit Information Visit Information Visit Type Treatment Note Visit Start Time 07:35 Visit Stop Time 08:23 Total Visit Minutes 48 Visit Number 15 Number of SPANISH LITERATURE PROFESSOR Visits 3 PT-OP-B Current Condition Start: 12/01/18 10:07 Freq: Status: Active Protocol: Document 12/01/18 10:09 EA (Rec: 12/01/18 10:26 EA [id number]) Current Condition History of Current Condition Onset Date S/P 11/15/18 Left shoulder arthroscopic labral tear Current Complaints Left shoulder pain and weakness History of Current Condition Patient had work injury in 2016 when 2x/4 wood fell and hit his left shoulder and neck . Patient underwent cervical surgery on April/2017 due to shoulder numbness and weakness per patient. Pt reports underwent formal PT after that surgery and went well. Pt today is 2 weeks post op L shoulder labral tear arthroscopic repair. Pt is has dr. Alfonso exercises protocol to follow. Prior Treatments and Tests S/P left shoulder arthroscopic labral repair 11/15/18 Future Testing and Treatments Planned None identified Treatment Goals Patient/Caregiver Goals Patient wants to get back to previous function; states I don't assume I would get back to previous level, but at least not disable. 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- Recreation/Hobbies No limitation 1 1/2 years ago Current Functional Impairments (Reported) Functional Limitations- ADL's Independent; unable to drive at this time Functional Limitations- Mobility/Gait Indep Functional Limitations- Work/School On disability since the last neck/shoulder injury 2016 Functional Limitations- Recreation/ Unable Hobbies PT-OP-C Subjective Start: 12/01/18 10:07 Freq: Status: Active Protocol: Document 02/04/19 08:30 SA (Rec: 02/04/19 08:38 SA [email or web address]) OP-PT Subjective Patient Comments Patient Comments Pt reports feeling really sore after last visit, was unable to do HEP the last 2 days. PT-OP-E Functional Tests Start: 12/01/18 10:07 Freq: Status: Active Protocol: Document 12/01/18 10:29 EA (Rec: 12/01/18 13:00 EA [id number]) Functional Tests Apley's Scratch Test Action 1: The subject is instructed to touch the opposite shoulder with his/her hand. This motion checks Glenohumeral adduction, internal rotation , horizontal adduction and scapular protraction Action 2: The subject is instructed to place his/her arm overhead and reach behind the neck to touch his/her upper back. This motion checks Glenohumeral abduction, external rotation and scapular upward rotation and elevation. Action 3: The subject puts his/her hand on the lower back and reaches upward as far as possible. This motion checks glenohumeral adduction, internal rotation and scapular retraction with downward rotation Action 1- Left Unable Action 1- Right behind opposite shoulder Action 2- Left unable Action 2- Right T1 Action 3- Left Unable Action 3- Right T9 PT-OP-F Manual Assessment Start: 12/01/18 10:07 Freq: Status: Active Protocol: Document 12/01/18 10:29 EA (Rec: 12/01/18 13:00 EA [id number]) Manual Assessments Soft Tissue Assessment Soft Tissue Mobility Assessment unable to assess due to muscle guarding and pain Joint Mobility Assessment Joint Mobility Assessment Unable to assess due to muscle guarding PT-OP-J Posture/Palpation/Skin Start: 12/01/18 10:07 Freq: Status: Active Protocol: Document 12/01/18 10:29 EA (Rec: 12/01/18 13:00 EA [id number]) Posture Evaluation Position Standing Evaluation View post/lat Head/C-Spine Posture Neutral Position T-Spine Posture Neutral Shoulder Posture Neutral Scapula Posture (L) Neutral (L) Protracted Arm Posture (L) Neutral (R) Neutral Palpation Assessment Location One Palpation Location Left Anterior upper and lower, posterior lower shoulder Palpation Findings Soft Tissue Tightness Muscle Guarding Tenderness Palpation Details Grade 3/4 tenderness with muscle guarding PT-OP-K Range of Motion Start: 12/01/18 10:07 Freq: Status: Active Protocol: Document 12/01/18 10:29 EA (Rec: 12/01/18 13:00 EA [id number]) Shoulder Goniometric Range of Motion Shoulder Measured in Degrees Left Passive Shoulder ROM WFL Yes Testing Position supine sitting Flexion 25 Extension 40 Abduction 30 Right Active Shoulder ROM WFL Yes Shoulder ROM Limitations Shoulder ROM Limitations Soft Tissue Tightness Pain Comments Other shoulder ROM is not tested due to healing pre- cautions Elbow/Forearm Range of Motion Elbow/Forearm Measured in Degrees Left Active Elbow/Forearm ROM WFL Yes Wrist Goniometric Range of Motion Wrist Measured in Degrees Left Wrist ROM WFL Yes PT-OP-M Strength Start: 12/01/18 10:07 Freq: Status: Active Protocol: Document 12/01/18 10:29 EA (Rec: 12/01/18 13:00 EA [id number]) Scapula Strength Scapula Manual Muscle Testing Left Elevation (C4) 3+ Fair+ Adduction 3+ Fair+ Abduction 3+ Fair+ Depression 3+ Fair+ Reason Not Measured Orthopedic Precautions Pain Comments Pain increased with higher resistance Shoulder Strength Shoulder Manual Muscle Testing Right Reason Not Measured WFL Left Reason Not Measured Orthopedic Precautions PT-OP-Q Treatments Start: 12/01/18 10:07 Freq: Status: Active Protocol: Document 02/04/19 08:30 SA (Rec: 02/04/19 08:38 SA [email or web address]) Cardio Equipment Upper Body Ergometer (UBE) Duration (Minutes) 5 RPM 55 Seat Position 12 Therapeutic Exercises Supine Exercises 7 Supine Exercise Name Shoulder ER, Tbar AAROM Reps/Minutes x20 6 Supine Exercise Name Serratus Punch Resistance 4# Reps/Minutes 2x10 5 Supine Exercise Name T-bar press Resistance 4 lbs Reps/Minutes x 15 reps x 2 Comments close grp 3 Supine Exercise Name T-bar flexion OH AAROM Side bilateral Equipment Used 3# Reps/Minutes x 15 reps x 2 1 Supine Exercise Name Shoulder gentle PROM: flex/abd /IR/ER Reps/Minutes 15 reps Comments pain free range Sitting Exercises 5 Sitting Exercise Name Shoulder Jcarlos, Scaption and Flexion Reps/Minutes 2 min each Standing Exercises 6 Standing Exercise Name Jcarlos AAROM IR behind back Side left Equipment Used IR Reps/Minutes x5, 10 sec hold 3 Standing Exercise Name T-bar shoulder ext, abduction, flexion, scaption Resistance 2# Reps/Minutes 2x15 Comments range with no shoulder shrugs Manual Therapy Treatment Soft Tissue Mobilization STM/ MFR Body Location L UT/anterior shoulder Mobilization Type Myofascial Release Rolling Sustained Pressure Intensity/Depth Moderate Comments Passive pec stretching Joint Mobilizations 1 Joint Post/Ant/Inferior Comments mobilization followed by PROM flex, abd, ER as tolerated. Grade 2. PT-OP-R Modalities Start: 12/01/18 10:07 Freq: Status: Active Protocol: Document 02/04/19 08:30 SA (Rec: 02/04/19 08:38 SA [email or web address]) Hot Pack/Cold Pack Treatment Ice Massage Location L anterior shoulder Patient Position Supine Treatment Duration (minutes) 5 Patient Tolerance Good PT-OP-T Assessment and Plan Start: 12/01/18 10:07 Freq: Status: Active Protocol: Document 02/04/19 08:30 SA (Rec: 02/04/19 08:38 SA [email or web address]) Physical Therapy Assessment Assessment Summary Assessment Continued capsular tightness, joint mobs to address and STM to UT and anterior shoulder, manual pec stretching. Advised patient with daily ice use and importance of HEP daily. Physical Therapy Plan Next Visit Focus/Plan Next Note Type Treatment Note Next Visit Plan Cont to progress AROM, shoulder strengthening and HEP compliance.
--- NOTE | 2019-02-07 16:32 | PT.OTRE ---
Current Diagnoses Superior glenoid labrum lesion of left shoulder, subsequent encounter (02/07/19) Past Medical History (Last Updated 11/08/18 @ 15:13 by Kristin Broussard RN) Anxiety (Acute) Concussion (Acute) Difficult airway for intubation (Acute) GERD (gastroesophageal reflux disease) (Acute) Generalized headaches (Acute) Hand fracture (Acute) Head trauma (Acute ~10/04/18) Hearing impaired (Acute) Jaw fracture (Acute ~2006) Numbness (Acute) AVILA (obstructive sleep apnea) (Acute) Tear of left glenoid labrum (Acute) Surgical History (Last Updated 10/01/18 @ 08:36 by Rosita Ferguson RN) Hx of cervical discectomy (Acute 02/13/18) Provider Visit Care Team Role Provider Type Mau Hood MD Primary Care Provider Physician Specialty: Family Practice Address: [address] [place] [address], [id number] Email: Jono Alfonso MD Attending Provider Physician Specialty: Orthopedic Surgery Address: [address] [place] [address], [id number] Email: [email or web address] Physical Therapy Re-Evaluation PT-OP-A Visit Information Start: 12/01/18 10:07 Freq: Status: Active Protocol: Document 02/07/19 08:12 EA (Rec: 02/07/19 08:17 EA [id number]) Out-Patient Physical Therapy Visit Information Visit Information Visit Type Treatment Note Visit Note Re-eval performed today Visit Start Time 07:35 Visit Stop Time 08:23 Total Visit Minutes 48 Visit Number 16 Number of TRIP MOTOR OPERATOR Visits 3 PT-OP-B Current Condition Start: 12/01/18 10:07 Freq: Status: Active Protocol: Document 12/01/18 10:09 EA (Rec: 12/01/18 10:26 EA [id number]) Current Condition History of Current Condition Onset Date S/P 11/15/18 Left shoulder arthroscopic labral tear Current Complaints Left shoulder pain and weakness History of Current Condition Patient had work injury in 2016 when 2x/4 wood fell and hit his left shoulder and neck . Patient underwent cervical surgery on April/2017 due to shoulder numbness and weakness per patient. Pt reports underwent formal PT after that surgery and went well. Pt today is 2 weeks post op L shoulder labral tear arthroscopic repair. Pt is has dr. Alfonso exercises protocol to follow. Prior Treatments and Tests S/P left shoulder arthroscopic labral repair 11/15/18 Future Testing and Treatments Planned None identified Treatment Goals Patient/Caregiver Goals Patient wants to get back to previous function; states I don't assume I would get back to previous level, but at least not disable. 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- Recreation/Hobbies No limitation 1 1/2 years ago Current Functional Impairments (Reported) Functional Limitations- ADL's Independent; unable to drive at this time Functional Limitations- Mobility/Gait Indep Functional Limitations- Work/School On disability since the last neck/shoulder injury 2016 Functional Limitations- Recreation/ Unable Hobbies PT-OP-C Subjective Start: 12/01/18 10:07 Freq: Status: Active Protocol: Document 02/07/19 12:13 EA (Rec: 02/07/19 12:16 EA [id number]) OP-PT Subjective Patient Comments Patient Comments Pt continued to report using his affected arm for work with moderate lifting; states pain and stiffness made him to shrug left shoulder with overhead movement. Overall he feels less improved. Patient Questionnaires Quick Dash- Upper Extremity Quick Dash UE Score 63 Quick Dash UE Impairment 80 to 99% Impaired (Score 80- 99) OP-PT Pain Assessment Location Left Anterior Proximal Shoulder Intensity 7 Scale Used Numeric (1 - 10) Description Tender Tightness Throbbing Frequency Frequent Pain Aggravating Factors Changing Position ADL's Activity Other Pain Alleviating Factors Oxycodone Home Pain Medication Use Pain Medications Used Yes Home Pain Medication Frequency Oxycodone Pain Behaviors Pain Behaviors Guarding Wincing PT-OP-E Functional Tests Start: 12/01/18 10:07 Freq: Status: Active Protocol: Document 02/07/19 13:14 EA (Rec: 02/07/19 13:18 EA [id number]) Functional Tests Garlandey's Scratch Test Action 1: The subject is instructed to touch the opposite shoulder with his/her hand. This motion checks Glenohumeral adduction, internal rotation , horizontal adduction and scapular protraction Action 2: The subject is instructed to place his/her arm overhead and reach behind the neck to touch his/her upper back. This motion checks Glenohumeral abduction, external rotation and scapular upward rotation and elevation. Action 3: The subject puts his/her hand on the lower back and reaches upward as far as possible. This motion checks glenohumeral adduction, internal rotation and scapular retraction with downward rotation Action 1- Left Opposite shoulder Action 1- Right behind opposite shoulder Action 2- Left C5 Action 2- Right T1 Action 3- Left L5 Action 3- Right T9 PT-OP-F Manual Assessment Start: 12/01/18 10:07 Freq: Status: Active Protocol: Document 02/07/19 13:14 EA (Rec: 02/07/19 13:18 EA [id number]) Manual Assessments Soft Tissue Assessment Soft Tissue Mobility Assessment Ant /post capsule Joint Mobility Assessment Joint Mobility Assessment Hypo mobility PT-OP-J Posture/Palpation/Skin Start: 12/01/18 10:07 Freq: Status: Active Protocol: Document 02/07/19 13:14 EA (Rec: 02/07/19 13:18 EA [id number]) Palpation Assessment Location One Palpation Location Left Anterior upper and lower, posterior lower shoulder Palpation Findings Soft Tissue Tightness Muscle Guarding Tenderness Palpation Details Grade 2/4 tenderness with muscle guarding PT-OP-K Range of Motion Start: 12/01/18 10:07 Freq: Status: Active Protocol: Document 02/07/19 13:14 EA (Rec: 02/07/19 13:18 EA [id number]) Shoulder Goniometric Range of Motion Shoulder Measured in Degrees Left Passive Testing Position Supine Flexion 90 Extension 60 Abduction 80 Horizontal Abduction 10 External Rotation at 90 degrees 60 Abduction External Rotation at 0 degrees Abduction 10 Internal Rotation 40 Right Active Shoulder ROM WFL Yes External Rotation at 0 degrees Abduction 8 Elbow/Forearm Range of Motion Elbow/Forearm Measured in Degrees Left Active Elbow/Forearm ROM WFL Yes PT-OP-M Strength Start: 12/01/18 10:07 Freq: Status: Active Protocol: Document 02/07/19 13:19 EA (Rec: 02/07/19 13:20 EA [id number]) Shoulder Strength Shoulder Manual Muscle Testing Left Flexion 3 Fair Extension 4- Good- Abduction (C5) 3+ Fair+ Adduction 4 Good External Rotation 3+ Fair+ Internal Rotation 4- Good- Horizontal Abduction 3+ Fair+ Horizontal Adduction 3+ Fair+ PT-OP-Q Treatments Start: 12/01/18 10:07 Freq: Status: Active Protocol: Document 02/07/19 12:13 EA (Rec: 02/07/19 12:16 EA [id number]) Cardio Equipment Upper Body Ergometer (UBE) Duration (Minutes) 5 RPM 55 Seat Position 12 Height 3 Gym Equipment Cable Column (Body Solid) Rows Details 20# Reps/Time x 12 reps Therapeutic Exercises Supine Exercises 6 Supine Exercise Name Serratus Punch Resistance 4# Reps/Minutes 2x10 5 Supine Exercise Name T-bar press Resistance 4 lbs Reps/Minutes x 15 reps x 2 Comments close grp 3 Supine Exercise Name T-bar flexion OH AAROM Side bilateral Equipment Used 3# Reps/Minutes x 15 reps x 2 1 Supine Exercise Name Shoulder gentle PROM: flex/abd /IR/ER Reps/Minutes 15 reps Comments pain free range Sidelying Exercises 2 Sidelying Exercise Name ER Reps/Minutes 5SH x 10 reps Comments pain free range 1 Sidelying Exercise Name ABD Equipment Used 2# Reps/Minutes x 15 reps x 2 at 90 deg Sitting Exercises 5 Sitting Exercise Name Shoulder Jcarlos, Scaption and Flexion Reps/Minutes 2 min each Standing Exercises 4 Standing Exercise Name DB curl Resistance 4# Reps/Minutes x 10 reps x 2 3 Standing Exercise Name T-bar shoulder ext, abduction, flexion, scaption Resistance 2# Reps/Minutes 2x15 Comments range with no shoulder shrugs 2 Standing Exercise Name Tri-press Resistance Lv3 Reps/Minutes x 12 reps x 2 1 Standing Exercise Name T-bar extension Equipment Used 2# Reps/Minutes x 15 reps x 2 Manual Therapy Treatment Soft Tissue Mobilization STM/ MFR Body Location L UT/anterior shoulder Mobilization Type Myofascial Release Rolling Sustained Pressure Intensity/Depth Moderate Comments Passive pec stretching Joint Mobilizations 1 Joint Post/Ant/Inferior Comments mobilization followed by PROM flex, abd, ER as tolerated. Grade 2. PT-OP-R Modalities Start: 12/01/18 10:07 Freq: Status: Active Protocol: Document 02/07/19 12:13 ZOILA (Rec: 02/07/19 12:16 ZOILA [id number]) Hot Pack/Cold Pack Treatment Cold Pack Location L shoulder Patient Position Supine Treatment Duration (minutes) 10 Patient Tolerance Good PT-OP-T Assessment and Plan Start: 12/01/18 10:07 Freq: Status: Active Protocol: Document 02/07/19 16:14 ZOILA (Rec: 02/07/19 16:31 EA [id number]) Physical Therapy Assessment Rehab Potential Rehabilitation Potential Fair Impairments Impairments Activity Tolerance Functional Activities Pain ROM Soft Tissue Mobility Strength Goals Five Impairment Impaired Apley's functional test (C4-C5) Penitentiary Goal (LTG) Patient will improve Apley's functional test (T1) LTG Duration 4 wks Four Impairment Impaired left shoulder strength Penitentiary Goal (LTG) Patient will have functional ADL -4/5 with pain rated of 2/ 10 LTG Duration 5 wks Three Impairment Quick Dash score of 80 Penitentiary Goal (LTG) Patient will have quick Dash score of less than 40 LTG Duration 6 wks ( slow improvment) Two Impairment Impaired shoulder ROM Penitentiary Goal (LTG) Patient will reach functional shoulder ROM to enhance shoulder active mobility LTG Duration 4 wks (slow progress) One Impairment NO HEP in place Cloth Finishing Range Operator Goal (LTG) Patient will perform HEP independent and safe. LTG Duration 3 wks. (Goal reached) Progress Towards Goals Progress Towards Goals Slow Progress due to Activity Tolerance Assessment Summary Assessment Pt demonstrates slow progress in the last 2 months of skilled PT. Factors such as decreased tolerance to ROM and shoulder mobility exercises affects progress. Despite consistent education and demonstration with proper shoulder mobility mechanics, patient continued to exhibit scap elevation with GH abduction and flexion. Pt would continue to benefit with skilled PT increase ROM, strength and education. Physical Therapy Plan Frequency and Duration Frequency of Treatment 2x/Week Duration of Treatment 6 wks Plan of Care Start Date 01/28/19 Plan of Care End Date 03/11/19 Therapeutic Interventions Therapeutic Interventions Home Exercise Program Joint Mobilizations Manual Therapy Patient/Caregiver Education Self-Care/Home Management Soft Tissue Mobilization Taping Therapeutic Exercises Modalities Cold Pack/Ice Massage Electric Stimulation Ultrasound Next Visit Focus/Plan Next Note Type Treatment Note
--- NOTE | 2019-02-07 16:32 | PT.OPPOC ---
Current Diagnoses Superior glenoid labrum lesion of left shoulder, subsequent encounter (02/07/19) Provider Visit Care Team Role Provider Type Mau Hood MD Primary Care Provider Physician Specialty: Family Practice Address: [address] [place] [address], [id number] Email: Jono Alfonso MD Attending Provider Physician Specialty: Orthopedic Surgery Address: [address] [place] [address], [id number] Email: [email or web address] Plan Of Care PT-OP-T Assessment and Plan Start: 12/01/18 10:07 Freq: Status: Active Protocol: Document 02/07/19 16:14 EA (Rec: 02/07/19 16:31 EA [id number]) Physical Therapy Assessment Rehab Potential Rehabilitation Potential Fair Impairments Impairments Activity Tolerance Functional Activities Pain ROM Soft Tissue Mobility Strength Goals Five Impairment Impaired Apley's functional test (C4-C5) Long-Term Goal (LTG) Patient will improve Apley's functional test (T1) LTG Duration 4 wks Four Impairment Impaired left shoulder strength Long-Term Goal (LTG) Patient will have functional ADL -4/5 with pain rated of 2/ 10 LTG Duration 5 wks Three Impairment Quick Dash score of 80 Food Service Tray Attendant Goal (LTG) Patient will have quick Dash score of less than 40 LTG Duration 6 wks ( slow improvment) Two Impairment Impaired shoulder ROM Long-Term Goal (LTG) Patient will reach functional shoulder ROM to enhance shoulder active mobility LTG Duration 4 wks (slow progress) One Impairment NO HEP in place Food Service Tray Attendant Goal (LTG) Patient will perform HEP independent and safe. LTG Duration 3 wks. (Goal reached) Progress Towards Goals Progress Towards Goals Slow Progress due to Activity Tolerance Assessment Summary Assessment Pt demonstrates slow progress in the last 2 months of skilled PT. Factors such as decreased tolerance to ROM and shoulder mobility exercises affects progress. Despite consistent education and demonstration with proper shoulder mobility mechanics, patient continued to exhibit scap elevation with GH abduction and flexion. Pt would continue to benefit with skilled PT increase ROM, strength and education. Physical Therapy Plan Frequency and Duration Frequency of Treatment 2x/Week Duration of Treatment 6 wks Plan of Care Start Date 01/28/19 Plan of Care End Date 03/11/19 Therapeutic Interventions Therapeutic Interventions Home Exercise Program Joint Mobilizations Manual Therapy Patient/Caregiver Education Self-Care/Home Management Soft Tissue Mobilization Taping Therapeutic Exercises Modalities Cold Pack/Ice Massage Electric Stimulation Ultrasound Next Visit Focus/Plan Next Note Type Treatment Note Plan of Care Dates Plan of Care Start Date 01/28/19 Plan of Care End Date 03/11/19 Please Sign and Return: I have reviewed this Plan of Care and certify that the skilled therapy services above are required to meet the patient?s needs. Physician Signature Date Printed Name and Credentials Clinical Instructor Signature Printed Name and Credentials
--- NOTE | 2019-02-09 12:09 | PT.OTN ---
Current Diagnoses Superior glenoid labrum lesion of left shoulder, subsequent encounter (02/09/19) Physical Therapy Treatment Note PT-OP-A Visit Information Start: 12/01/18 10:07 Freq: Status: Active Protocol: Document 02/09/19 08:12 EA (Rec: 02/09/19 08:17 EA [id number]) Out-Patient Physical Therapy Visit Information Visit Information Visit Type Treatment Note Visit Start Time 07:35 Visit Stop Time 08:25 Total Visit Minutes 48 Visit Number 17 Number of VERTICAL LATHE OPERATOR Visits 3 PT-OP-B Current Condition Start: 12/01/18 10:07 Freq: Status: Active Protocol: Document 12/01/18 10:09 EA (Rec: 12/01/18 10:26 EA [id number]) Current Condition History of Current Condition Onset Date S/P 11/15/18 Left shoulder arthroscopic labral tear Current Complaints Left shoulder pain and weakness History of Current Condition Patient had work injury in 2016 when 2x/4 wood fell and hit his left shoulder and neck . Patient underwent cervical surgery on April/2017 due to shoulder numbness and weakness per patient. Pt reports underwent formal PT after that surgery and went well. Pt today is 2 weeks post op L shoulder labral tear arthroscopic repair. Pt is has dr. Alfonso exercises protocol to follow. Prior Treatments and Tests S/P left shoulder arthroscopic labral repair 11/15/18 Future Testing and Treatments Planned None identified Treatment Goals Patient/Caregiver Goals Patient wants to get back to previous function; states I don't assume I would get back to previous level, but at least not disable. 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- Recreation/Hobbies No limitation 1 1/2 years ago Current Functional Impairments (Reported) Functional Limitations- ADL's Independent; unable to drive at this time Functional Limitations- Mobility/Gait Indep Functional Limitations- Work/School On disability since the last neck/shoulder injury 2016 Functional Limitations- Recreation/ Unable Hobbies PT-OP-C Subjective Start: 12/01/18 10:07 Freq: Status: Active Protocol: Document 02/09/19 08:12 EA (Rec: 02/09/19 08:17 EA [id number]) OP-PT Subjective Patient Comments Patient Comments Pt reports went to his surgeon and plan the option of continuing PT and or re- surgery for resurfacing of shoulder cartilage; he states that would like to continue PT and reach as much as he can and plan other option from there. PT-OP-E Functional Tests Start: 12/01/18 10:07 Freq: Status: Active Protocol: Document 02/07/19 13:14 EA (Rec: 02/07/19 13:18 EA [id number]) Functional Tests Apley's Scratch Test Action 1: The subject is instructed to touch the opposite shoulder with his/her hand. This motion checks Glenohumeral adduction, internal rotation , horizontal adduction and scapular protraction Action 2: The subject is instructed to place his/her arm overhead and reach behind the neck to touch his/her upper back. This motion checks Glenohumeral abduction, external rotation and scapular upward rotation and elevation. Action 3: The subject puts his/her hand on the lower back and reaches upward as far as possible. This motion checks glenohumeral adduction, internal rotation and scapular retraction with downward rotation Action 1- Left Opposite shoulder Action 1- Right behind opposite shoulder Action 2- Left C5 Action 2- Right T1 Action 3- Left L5 Action 3- Right T9 PT-OP-F Manual Assessment Start: 12/01/18 10:07 Freq: Status: Active Protocol: Document 02/07/19 13:14 EA (Rec: 02/07/19 13:18 EA [id number]) Manual Assessments Soft Tissue Assessment Soft Tissue Mobility Assessment Ant /post capsule Joint Mobility Assessment Joint Mobility Assessment Hypo mobility PT-OP-J Posture/Palpation/Skin Start: 12/01/18 10:07 Freq: Status: Active Protocol: Document 02/07/19 13:14 EA (Rec: 02/07/19 13:18 EA [id number]) Palpation Assessment Location One Palpation Location Left Anterior upper and lower, posterior lower shoulder Palpation Findings Soft Tissue Tightness Muscle Guarding Tenderness Palpation Details Grade 2/4 tenderness with muscle guarding PT-OP-K Range of Motion Start: 12/01/18 10:07 Freq: Status: Active Protocol: Document 02/07/19 13:14 EA (Rec: 02/07/19 13:18 EA [id number]) Shoulder Goniometric Range of Motion Shoulder Measured in Degrees Left Passive Testing Position Supine Flexion 90 Extension 60 Abduction 80 Horizontal Abduction 10 External Rotation at 90 degrees 60 Abduction External Rotation at 0 degrees Abduction 10 Internal Rotation 40 Right Active Shoulder ROM WFL Yes External Rotation at 0 degrees Abduction 8 Elbow/Forearm Range of Motion Elbow/Forearm Measured in Degrees Left Active Elbow/Forearm ROM WFL Yes PT-OP-M Strength Start: 12/01/18 10:07 Freq: Status: Active Protocol: Document 02/07/19 13:19 EA (Rec: 02/07/19 13:20 EA [id number]) Shoulder Strength Shoulder Manual Muscle Testing Left Flexion 3 Fair Extension 4- Good- Abduction (C5) 3+ Fair+ Adduction 4 Good External Rotation 3+ Fair+ Internal Rotation 4- Good- Horizontal Abduction 3+ Fair+ Horizontal Adduction 3+ Fair+ PT-OP-Q Treatments Start: 12/01/18 10:07 Freq: Status: Active Protocol: Document 02/09/19 08:12 EA (Rec: 02/09/19 08:17 EA [id number]) Cardio Equipment Upper Body Ergometer (UBE) Duration (Minutes) 5 RPM 55 Seat Position 12 Height 4 Gym Equipment Cable Column (Body Solid) Rows Details mid and pull down Resistance 20-30# Reps/Time x 12 reps Therapeutic Exercises Supine Exercises 6 Supine Exercise Name Serratus Punch Resistance 4# Reps/Minutes 2x10 Standing Exercises 8 Standing Exercise Name ER/IR Side left Equipment Used Lv1 Reps/Minutes x 12 reps x 2 7 Standing Exercise Name wall slides flexion and scaption Side bilateral Reps/Minutes x 15 reps x 2 sets Comments tactile cues to stab scapula 6 Standing Exercise Name Jcarlos AAROM IR behind back Side left Equipment Used IR Reps/Minutes x5, 10 sec hold 5 Standing Exercise Name elbow flexion Side bilateral Resistance 3 lbs Reps/Minutes x 12 reps x 2sets 4 Standing Exercise Name DB curl Resistance 4# Reps/Minutes x 10 reps x 2 3 Standing Exercise Name T-bar shoulder ext, abduction, flexion, scaption Resistance 2# Reps/Minutes 2x15 Comments range with no shoulder shrugs 2 Standing Exercise Name Tri-press Resistance Lv3 Reps/Minutes x 12 reps x 2 1 Standing Exercise Name T-bar extension Equipment Used 2# Reps/Minutes x 15 reps x 2 Manual Therapy Treatment Soft Tissue Mobilization STM/ MFR Body Location L UT/anterior shoulder Mobilization Type Myofascial Release Rolling Sustained Pressure Intensity/Depth Moderate Comments Passive pec stretching 1 Body Location left shoulder Mobilization Type Cross-Friction Myofascial Release Rolling Intensity/Depth Superficial Body Position Supine Comments Patient is hypersensitive. Facial grimace noted with light intensity Joint Mobilizations 1 Joint Post/Ant/Inferior Comments mobilization followed by PROM flex, abd, ER as tolerated. Grade 2. PT-OP-R Modalities Start: 12/01/18 10:07 Freq: Status: Active Protocol: Document 02/09/19 08:58 EA (Rec: 02/09/19 09:01 EA [id number]) Hot Pack/Cold Pack Treatment Cold Pack Location L shoulder Patient Position Supine Treatment Duration (minutes) 10 Patient Tolerance Good PT-OP-T Assessment and Plan Start: 12/01/18 10:07 Freq: Status: Active Protocol: Document 02/09/19 08:58 EA (Rec: 02/09/19 09:01 EA [id number]) Physical Therapy Assessment Assessment Summary Assessment Improved shoulder mobility exercises in sitting/standing with constant cues to inhibit upper traps in all overhead movement with tactile stimulus to keep scapula in place. Pt recommends to add wall flexion slides and sleeper stretch. Physical Therapy Plan Next Visit Focus/Plan Next Note Type Treatment Note
--- NOTE | 2019-02-14 12:07 | PT.OTN ---
Current Diagnoses Superior glenoid labrum lesion of left shoulder, subsequent encounter (02/14/19) Physical Therapy Treatment Note PT-OP-A Visit Information Start: 12/01/18 10:07 Freq: Status: Active Protocol: Document 02/14/19 07:36 EA (Rec: 02/14/19 08:20 EA [id number]) Out-Patient Physical Therapy Visit Information Visit Information Visit Type Treatment Note Visit Start Time 07:35 Visit Stop Time 08:25 Total Visit Minutes 50 Visit Number 18 Number of BLOWING WEASAND Visits 3 PT-OP-B Current Condition Start: 12/01/18 10:07 Freq: Status: Active Protocol: Document 12/01/18 10:09 EA (Rec: 12/01/18 10:26 EA [id number]) Current Condition History of Current Condition Onset Date S/P 11/15/18 Left shoulder arthroscopic labral tear Current Complaints Left shoulder pain and weakness History of Current Condition Patient had work injury in 2016 when 2x/4 wood fell and hit his left shoulder and neck . Patient underwent cervical surgery on April/2017 due to shoulder numbness and weakness per patient. Pt reports underwent formal PT after that surgery and went well. Pt today is 2 weeks post op L shoulder labral tear arthroscopic repair. Pt is has dr. Alfonso exercises protocol to follow. Prior Treatments and Tests S/P left shoulder arthroscopic labral repair 11/15/18 Future Testing and Treatments Planned None identified Treatment Goals Patient/Caregiver Goals Patient wants to get back to previous function; states I don't assume I would get back to previous level, but at least not disable. 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- Recreation/Hobbies No limitation 1 1/2 years ago Current Functional Impairments (Reported) Functional Limitations- ADL's Independent; unable to drive at this time Functional Limitations- Mobility/Gait Indep Functional Limitations- Work/School On disability since the last neck/shoulder injury 2016 Functional Limitations- Recreation/ Unable Hobbies PT-OP-C Subjective Start: 12/01/18 10:07 Freq: Status: Active Protocol: Document 02/14/19 07:36 EA (Rec: 02/14/19 08:20 EA [id number]) OP-PT Subjective Patient Comments Patient Comments Pt reports two days after massage he noticed pain is too much; states today feeling much better. Pt states I worked more than anything. PT-OP-E Functional Tests Start: 12/01/18 10:07 Freq: Status: Active Protocol: Document 02/07/19 13:14 EA (Rec: 02/07/19 13:18 EA [id number]) Functional Tests Apley's Scratch Test Action 1: The subject is instructed to touch the opposite shoulder with his/her hand. This motion checks Glenohumeral adduction, internal rotation , horizontal adduction and scapular protraction Action 2: The subject is instructed to place his/her arm overhead and reach behind the neck to touch his/her upper back. This motion checks Glenohumeral abduction, external rotation and scapular upward rotation and elevation. Action 3: The subject puts his/her hand on the lower back and reaches upward as far as possible. This motion checks glenohumeral adduction, internal rotation and scapular retraction with downward rotation Action 1- Left Opposite shoulder Action 1- Right behind opposite shoulder Action 2- Left C5 Action 2- Right T1 Action 3- Left L5 Action 3- Right T9 PT-OP-F Manual Assessment Start: 12/01/18 10:07 Freq: Status: Active Protocol: Document 02/07/19 13:14 EA (Rec: 02/07/19 13:18 EA [id number]) Manual Assessments Soft Tissue Assessment Soft Tissue Mobility Assessment Ant /post capsule Joint Mobility Assessment Joint Mobility Assessment Hypo mobility PT-OP-J Posture/Palpation/Skin Start: 12/01/18 10:07 Freq: Status: Active Protocol: Document 02/07/19 13:14 EA (Rec: 02/07/19 13:18 EA [id number]) Palpation Assessment Location One Palpation Location Left Anterior upper and lower, posterior lower shoulder Palpation Findings Soft Tissue Tightness Muscle Guarding Tenderness Palpation Details Grade 2/4 tenderness with muscle guarding PT-OP-K Range of Motion Start: 12/01/18 10:07 Freq: Status: Active Protocol: Document 02/07/19 13:14 EA (Rec: 02/07/19 13:18 EA [id number]) Shoulder Goniometric Range of Motion Shoulder Measured in Degrees Left Passive Testing Position Supine Flexion 90 Extension 60 Abduction 80 Horizontal Abduction 10 External Rotation at 90 degrees 60 Abduction External Rotation at 0 degrees Abduction 10 Internal Rotation 40 Right Active Shoulder ROM WFL Yes External Rotation at 0 degrees Abduction 8 Elbow/Forearm Range of Motion Elbow/Forearm Measured in Degrees Left Active Elbow/Forearm ROM WFL Yes PT-OP-M Strength Start: 12/01/18 10:07 Freq: Status: Active Protocol: Document 02/07/19 13:19 EA (Rec: 02/07/19 13:20 EA [id number]) Shoulder Strength Shoulder Manual Muscle Testing Left Flexion 3 Fair Extension 4- Good- Abduction (C5) 3+ Fair+ Adduction 4 Good External Rotation 3+ Fair+ Internal Rotation 4- Good- Horizontal Abduction 3+ Fair+ Horizontal Adduction 3+ Fair+ PT-OP-Q Treatments Start: 12/01/18 10:07 Freq: Status: Active Protocol: Document 02/14/19 07:36 EA (Rec: 02/14/19 08:20 EA [id number]) Cardio Equipment Upper Body Ergometer (UBE) Duration (Minutes) 5 RPM 55 Seat Position 12 Height 4 Gym Equipment Cable Column (Body Solid) Rows Details mid and pull down Resistance 20-30# Reps/Time x 12 reps Therapeutic Exercises Supine Exercises 7 Supine Exercise Name Flyes Resistance #4 Reps/Minutes x 12 reps x 2 6 Supine Exercise Name Serratus Punch Resistance 4# Reps/Minutes 2x10 5 Supine Exercise Name T-bar press Resistance 4-6 lbs Reps/Minutes x 15 reps x 2 Comments close grp 1 Supine Exercise Name Shoulder gentle PROM: flex/abd /IR/ER Reps/Minutes 15 reps Comments pain free range Prone Exercises 1 Prone Exercise Name T-ball scap ADD Resistance #2 Reps/Minutes x5SH x 5 reps x 2 sets Sidelying Exercises 2 Sidelying Exercise Name ER Resistance 2# Reps/Minutes 5SH x 10 reps 1 Sidelying Exercise Name ABD Equipment Used 2# Reps/Minutes x 15 reps x 2 at 90 deg Sitting Exercises 4 Sitting Exercise Name side raises Equipment Used 2# Reps/Minutes x12 re[s x2 2 Sitting Exercise Name Front raises Resistance 5# both hands Reps/Minutes x12 reps x 2 Standing Exercises 8 Standing Exercise Name ER/IR Side left Equipment Used Lv1 Reps/Minutes x 12 reps x 2 7 Standing Exercise Name wall slides flexion and scaption Side bilateral Reps/Minutes x 15 reps x 2 sets Comments tactile cues to stab scapula 2 Standing Exercise Name Tri-press Resistance Lv3 Reps/Minutes x 12 reps x 2 1 Standing Exercise Name T-bar extension Equipment Used 2-4# Reps/Minutes x 15 reps x 2 PT-OP-R Modalities Start: 12/01/18 10:07 Freq: Status: Active Protocol: Document 02/14/19 07:36 EA (Rec: 02/14/19 08:20 EA [id number]) Hot Pack/Cold Pack Treatment Cold Pack Location L shoulder Patient Position Supine Treatment Duration (minutes) 10 Patient Tolerance Good PT-OP-T Assessment and Plan Start: 12/01/18 10:07 Freq: Status: Active Protocol: Document 02/14/19 07:36 EA (Rec: 02/14/19 08:20 EA [id number]) Physical Therapy Assessment Assessment Summary Assessment Improved strength and exercises tolerance at this time; however, range still limited to 135 degrees due to pain and stiffness; requires constant cues to inhibited shoulder shrugs with overhead movement. Physical Therapy Plan Next Visit Focus/Plan Next Note Type Treatment Note Next Visit Plan Cont. with current plasn.
--- NOTE | 2019-02-16 12:07 | PT.OTN ---
Current Diagnoses Superior glenoid labrum lesion of left shoulder, subsequent encounter (02/16/19) Physical Therapy Treatment Note PT-OP-A Visit Information Start: 12/01/18 10:07 Freq: Status: Active Protocol: Document 02/16/19 08:18 EA (Rec: 02/16/19 08:27 EA [id number]) Out-Patient Physical Therapy Visit Information Visit Information Visit Type Treatment Note Visit Start Time 07:45 Visit Stop Time 08:23 Total Visit Minutes 38 Visit Number 19 Number of WEDDING CONSULTANT Visits 3 PT-OP-B Current Condition Start: 12/01/18 10:07 Freq: Status: Active Protocol: Document 12/01/18 10:09 EA (Rec: 12/01/18 10:26 EA [id number]) Current Condition History of Current Condition Onset Date S/P 11/15/18 Left shoulder arthroscopic labral tear Current Complaints Left shoulder pain and weakness History of Current Condition Patient had work injury in 2016 when 2x/4 wood fell and hit his left shoulder and neck . Patient underwent cervical surgery on April/2017 due to shoulder numbness and weakness per patient. Pt reports underwent formal PT after that surgery and went well. Pt today is 2 weeks post op L shoulder labral tear arthroscopic repair. Pt is has dr. Alfonso exercises protocol to follow. Prior Treatments and Tests S/P left shoulder arthroscopic labral repair 11/15/18 Future Testing and Treatments Planned None identified Treatment Goals Patient/Caregiver Goals Patient wants to get back to previous function; states I don't assume I would get back to previous level, but at least not disable. 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- Recreation/Hobbies No limitation 1 1/2 years ago Current Functional Impairments (Reported) Functional Limitations- ADL's Independent; unable to drive at this time Functional Limitations- Mobility/Gait Indep Functional Limitations- Work/School On disability since the last neck/shoulder injury 2017 Functional Limitations- Recreation/ Unable Hobbies PT-OP-C Subjective Start: 12/01/18 10:07 Freq: Status: Active Protocol: Document 02/16/19 08:18 EA (Rec: 02/16/19 08:27 EA [id number]) OP-PT Subjective Patient Comments Patient Comments I apologize for being late PT-OP-E Functional Tests Start: 12/01/18 10:07 Freq: Status: Active Protocol: Document 02/07/19 13:14 EA (Rec: 02/07/19 13:18 EA [id number]) Functional Tests Apley's Scratch Test Action 1: The subject is instructed to touch the opposite shoulder with his/her hand. This motion checks Glenohumeral adduction, internal rotation , horizontal adduction and scapular protraction Action 2: The subject is instructed to place his/her arm overhead and reach behind the neck to touch his/her upper back. This motion checks Glenohumeral abduction, external rotation and scapular upward rotation and elevation. Action 3: The subject puts his/her hand on the lower back and reaches upward as far as possible. This motion checks glenohumeral adduction, internal rotation and scapular retraction with downward rotation Action 1- Left Opposite shoulder Action 1- Right behind opposite shoulder Action 2- Left C5 Action 2- Right T1 Action 3- Left L5 Action 3- Right T9 PT-OP-F Manual Assessment Start: 12/01/18 10:07 Freq: Status: Active Protocol: Document 02/07/19 13:14 EA (Rec: 02/07/19 13:18 EA [id number]) Manual Assessments Soft Tissue Assessment Soft Tissue Mobility Assessment Ant /post capsule Joint Mobility Assessment Joint Mobility Assessment Hypo mobility PT-OP-J Posture/Palpation/Skin Start: 12/01/18 10:07 Freq: Status: Active Protocol: Document 02/07/19 13:14 EA (Rec: 02/07/19 13:18 EA [id number]) Palpation Assessment Location One Palpation Location Left Anterior upper and lower, posterior lower shoulder Palpation Findings Soft Tissue Tightness Muscle Guarding Tenderness Palpation Details Grade 2/4 tenderness with muscle guarding PT-OP-K Range of Motion Start: 12/01/18 10:07 Freq: Status: Active Protocol: Document 02/07/19 13:14 EA (Rec: 02/07/19 13:18 EA [id number]) Shoulder Goniometric Range of Motion Shoulder Measured in Degrees Left Passive Testing Position Supine Flexion 90 Extension 60 Abduction 80 Horizontal Abduction 10 External Rotation at 90 degrees 60 Abduction External Rotation at 0 degrees Abduction 10 Internal Rotation 40 Right Active Shoulder ROM WFL Yes External Rotation at 0 degrees Abduction 8 Elbow/Forearm Range of Motion Elbow/Forearm Measured in Degrees Left Active Elbow/Forearm ROM WFL Yes PT-OP-M Strength Start: 12/01/18 10:07 Freq: Status: Active Protocol: Document 02/07/19 13:19 EA (Rec: 02/07/19 13:20 EA [id number]) Shoulder Strength Shoulder Manual Muscle Testing Left Flexion 3 Fair Extension 4- Good- Abduction (C5) 3+ Fair+ Adduction 4 Good External Rotation 3+ Fair+ Internal Rotation 4- Good- Horizontal Abduction 3+ Fair+ Horizontal Adduction 3+ Fair+ PT-OP-Q Treatments Start: 12/01/18 10:07 Freq: Status: Active Protocol: Document 02/16/19 08:18 EA (Rec: 02/16/19 08:27 EA [id number]) Cardio Equipment Upper Body Ergometer (UBE) Duration (Minutes) 5 RPM 55 Seat Position 12 Height 4 Gym Equipment Cable Column (Body Solid) Rows Details mid and pull down Resistance 20-30# Reps/Time x 12 reps x 2 Therapeutic Exercises Supine Exercises 7 Supine Exercise Name Flyes Resistance #4 Reps/Minutes x 12 reps x 2 6 Supine Exercise Name Serratus Punch Resistance 4-7# Reps/Minutes 2x10 1 Supine Exercise Name Shoulder gentle PROM: flex/abd /IR/ER Reps/Minutes 15 reps Comments pain free range Prone Exercises 1 Prone Exercise Name T-ball scap ADD Resistance #2 Reps/Minutes x5SH x 5 reps x 2 sets Sidelying Exercises 2 Sidelying Exercise Name ER Resistance 2# Reps/Minutes 5SH x 10 reps 1 Sidelying Exercise Name ABD Equipment Used 2# Reps/Minutes x 15 reps x 2 at 90 deg Sitting Exercises 5 Sitting Exercise Name Biceps flexion Resistance 5lbs Reps/Minutes x 10 reps x 2 4 Sitting Exercise Name side raises Equipment Used 2# Reps/Minutes x12 re[s x2 Standing Exercises 8 Standing Exercise Name ER/IR Side left Equipment Used Lv1 Reps/Minutes x 12 reps x 2 Manual Therapy Treatment Soft Tissue Mobilization STM/ MFR Body Location L UT/anterior shoulder Mobilization Type Myofascial Release Rolling Sustained Pressure Intensity/Depth Moderate Comments Passive pec stretching 1 Body Location left shoulder Mobilization Type Cross-Friction Myofascial Release Rolling Intensity/Depth Superficial Body Position Supine Comments Patient is hypersensitive. Facial grimace noted with light intensity Joint Mobilizations 1 Joint Post/Ant/Inferior Comments mobilization followed by PROM flex, abd, ER as tolerated. Grade 2. PT-OP-R Modalities Start: 12/01/18 10:07 Freq: Status: Active Protocol: Document 02/16/19 08:18 EA (Rec: 02/16/19 08:27 EA [id number]) Hot Pack/Cold Pack Treatment Cold Pack Location L shoulder Patient Position Supine Treatment Duration (minutes) 10 Patient Tolerance Good PT-OP-T Assessment and Plan Start: 12/01/18 10:07 Freq: Status: Active Protocol: Document 02/16/19 08:18 EA (Rec: 02/16/19 08:27 EA [id number]) Physical Therapy Assessment Assessment Summary Assessment Tactile cues to inhibit early shoulder elev with overhead movement. Strength improved but ROM still limited. Recommends to cont home ROM exercises. Physical Therapy Plan Next Visit Focus/Plan Next Note Type Treatment Note Next Visit Plan focus with stretching and decreasing pain.
--- NOTE | 2019-02-21 15:12 | PT.OTN ---
Current Diagnoses Superior glenoid labrum lesion of left shoulder, subsequent encounter (02/21/19) Physical Therapy Treatment Note PT-OP-A Visit Information Start: 12/01/18 10:07 Freq: Status: Active Protocol: Document 02/21/19 14:29 EA (Rec: 02/21/19 15:12 EA [id number]) Out-Patient Physical Therapy Visit Information Visit Information Visit Type Treatment Note Visit Start Time 07:35 Visit Stop Time 08:25 Total Visit Minutes 50 Visit Number 20 Number of EXTERIOR DOOR INSTALLER Visits 3 PT-OP-B Current Condition Start: 12/01/18 10:07 Freq: Status: Active Protocol: Document 12/01/18 10:09 EA (Rec: 12/01/18 10:26 EA [id number]) Current Condition History of Current Condition Onset Date S/P 11/15/18 Left shoulder arthroscopic labral tear Current Complaints Left shoulder pain and weakness History of Current Condition Patient had work injury in 2016 when 2x/4 wood fell and hit his left shoulder and neck . Patient underwent cervical surgery on April/2017 due to shoulder numbness and weakness per patient. Pt reports underwent formal PT after that surgery and went well. Pt today is 2 weeks post op L shoulder labral tear arthroscopic repair. Pt is has dr. Alfonso exercises protocol to follow. Prior Treatments and Tests S/P left shoulder arthroscopic labral repair 11/15/18 Future Testing and Treatments Planned None identified Treatment Goals Patient/Caregiver Goals Patient wants to get back to previous function; states I don't assume I would get back to previous level, but at least not disable. 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- Recreation/Hobbies No limitation 1 1/2 years ago Current Functional Impairments (Reported) Functional Limitations- ADL's Independent; unable to drive at this time Functional Limitations- Mobility/Gait Indep Functional Limitations- Work/School On disability since the last neck/shoulder injury 2016 Functional Limitations- Recreation/ Unable Hobbies PT-OP-C Subjective Start: 12/01/18 10:07 Freq: Status: Active Protocol: Document 02/21/19 14:29 EA (Rec: 02/21/19 15:12 EA [id number]) OP-PT Subjective Patient Comments Patient Comments Pt reports compliant with HEP and feels his shoulder overhead movement is improving . Patient Reported Progress Improving PT-OP-E Functional Tests Start: 12/01/18 10:07 Freq: Status: Active Protocol: Document 02/07/19 13:14 EA (Rec: 02/07/19 13:18 EA [id number]) Functional Tests Apley's Scratch Test Action 1: The subject is instructed to touch the opposite shoulder with his/her hand. This motion checks Glenohumeral adduction, internal rotation , horizontal adduction and scapular protraction Action 2: The subject is instructed to place his/her arm overhead and reach behind the neck to touch his/her upper back. This motion checks Glenohumeral abduction, external rotation and scapular upward rotation and elevation. Action 3: The subject puts his/her hand on the lower back and reaches upward as far as possible. This motion checks glenohumeral adduction, internal rotation and scapular retraction with downward rotation Action 1- Left Opposite shoulder Action 1- Right behind opposite shoulder Action 2- Left C5 Action 2- Right T1 Action 3- Left L5 Action 3- Right T9 PT-OP-F Manual Assessment Start: 12/01/18 10:07 Freq: Status: Active Protocol: Document 02/07/19 13:14 EA (Rec: 02/07/19 13:18 EA [id number]) Manual Assessments Soft Tissue Assessment Soft Tissue Mobility Assessment Ant /post capsule Joint Mobility Assessment Joint Mobility Assessment Hypo mobility PT-OP-J Posture/Palpation/Skin Start: 12/01/18 10:07 Freq: Status: Active Protocol: Document 02/07/19 13:14 EA (Rec: 02/07/19 13:18 EA [id number]) Palpation Assessment Location One Palpation Location Left Anterior upper and lower, posterior lower shoulder Palpation Findings Soft Tissue Tightness Muscle Guarding Tenderness Palpation Details Grade 2/4 tenderness with muscle guarding PT-OP-K Range of Motion Start: 12/01/18 10:07 Freq: Status: Active Protocol: Document 02/07/19 13:14 EA (Rec: 02/07/19 13:18 EA [id number]) Shoulder Goniometric Range of Motion Shoulder Measured in Degrees Left Passive Testing Position Supine Flexion 90 Extension 60 Abduction 80 Horizontal Abduction 10 External Rotation at 90 degrees 60 Abduction External Rotation at 0 degrees Abduction 10 Internal Rotation 40 Right Active Shoulder ROM WFL Yes External Rotation at 0 degrees Abduction 8 Elbow/Forearm Range of Motion Elbow/Forearm Measured in Degrees Left Active Elbow/Forearm ROM WFL Yes PT-OP-M Strength Start: 12/01/18 10:07 Freq: Status: Active Protocol: Document 02/07/19 13:19 EA (Rec: 02/07/19 13:20 EA [id number]) Shoulder Strength Shoulder Manual Muscle Testing Left Flexion 3 Fair Extension 4- Good- Abduction (C5) 3+ Fair+ Adduction 4 Good External Rotation 3+ Fair+ Internal Rotation 4- Good- Horizontal Abduction 3+ Fair+ Horizontal Adduction 3+ Fair+ PT-OP-Q Treatments Start: 12/01/18 10:07 Freq: Status: Active Protocol: Document 02/21/19 14:29 EA (Rec: 02/21/19 15:12 EA [id number]) Cardio Equipment Upper Body Ergometer (UBE) Duration (Minutes) 5 RPM 60 Seat Position 12 Height 5 Gym Equipment Cable Column (Body Solid) Rows Details mid and pull down Resistance 20-30-40# Reps/Time x 12 reps x 3 Therapeutic Exercises Supine Exercises 7 Supine Exercise Name Flyes Resistance #4 Reps/Minutes x 12 reps x 2 5 Supine Exercise Name T-bar press Resistance 4-6 lbs Reps/Minutes x 15 reps x 2 Comments close grp 1 Supine Exercise Name Shoulder gentle PROM: flex/abd /IR/ER Reps/Minutes 15 reps Comments pain free range Prone Exercises 1 Prone Exercise Name T-ball: T-Y, extension Resistance #2 Reps/Minutes x5SH x 5 reps x 2 sets Sidelying Exercises 2 Sidelying Exercise Name ER Resistance 2# Reps/Minutes 5SH x 10 reps 1 Sidelying Exercise Name ABD Equipment Used 2# Reps/Minutes x 15 reps x 2 at 90 deg Sitting Exercises 4 Sitting Exercise Name side raises Equipment Used 2# Reps/Minutes x12 re[s x2 Standing Exercises 8 Standing Exercise Name ER/IR Side left Equipment Used Lv1-2 Reps/Minutes x 12 reps x 2 7 Standing Exercise Name wall slides flexion and scaption Side bilateral Resistance 2# Reps/Minutes x 15 reps x 2 sets Comments tactile cues to stab scapula 3 Standing Exercise Name T-bar shoulder ext, abduction, flexion, scaption Resistance 2# Reps/Minutes 2x15 Comments range with no shoulder shrugs 1 Standing Exercise Name T-bar extension Equipment Used 2-4# Reps/Minutes x 15 reps x 2 Manual Therapy Treatment Joint Mobilizations 1 Joint Post/Ant/Inferior Comments mobilization followed by PROM flex, abd, ER as tolerated. Grade 2. PT-OP-R Modalities Start: 12/01/18 10:07 Freq: Status: Active Protocol: Document 02/21/19 14:29 EA (Rec: 02/21/19 15:12 EA [id number]) Hot Pack/Cold Pack Treatment Cold Pack Location L shoulder Patient Position Supine Treatment Duration (minutes) 10 Patient Tolerance Good PT-OP-T Assessment and Plan Start: 12/01/18 10:07 Freq: Status: Active Protocol: Document 02/21/19 14:29 EA (Rec: 02/21/19 15:12 EA [id number]) Physical Therapy Assessment Assessment Summary Assessment Improved shoulder flexion and scaption; shoulder ABD at 90 deg shows no shoulder elev at this time. Patient progressing very well. Physical Therapy Plan Next Visit Focus/Plan Next Visit Plan Written HEP or revise previous HEP.
--- NOTE | 2019-03-16 13:39 | PT.OTN ---
Current Diagnoses Superior glenoid labrum lesion of left shoulder, subsequent encounter (03/16/19) Physical Therapy Treatment Note PT-OP-A Visit Information Start: 12/01/18 10:07 Freq: Status: Active Protocol: Document 03/16/19 08:22 EA (Rec: 03/16/19 08:28 EA [id number]) Out-Patient Physical Therapy Visit Information Visit Information Visit Type Treatment Note Visit Note re-eval performed Visit Start Time 07:30 Visit Stop Time 08:20 Total Visit Minutes 53 Visit Number 22 PT-OP-B Current Condition Start: 12/01/18 10:07 Freq: Status: Active Protocol: Document 12/01/18 10:09 EA (Rec: 12/01/18 10:26 EA [id number]) Current Condition History of Current Condition Onset Date S/P 11/15/18 Left shoulder arthroscopic labral tear Current Complaints Left shoulder pain and weakness History of Current Condition Patient had work injury in 2016 when 2x/4 wood fell and hit his left shoulder and neck . Patient underwent cervical surgery on April/2017 due to shoulder numbness and weakness per patient. Pt reports underwent formal PT after that surgery and went well. Pt today is 2 weeks post op L shoulder labral tear arthroscopic repair. Pt is has dr. Alfonso exercises protocol to follow. Prior Treatments and Tests S/P left shoulder arthroscopic labral repair 11/15/18 Future Testing and Treatments Planned None identified Treatment Goals Patient/Caregiver Goals Patient wants to get back to previous function; states I don't assume I would get back to previous level, but at least not disable. 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- Recreation/Hobbies No limitation 1 1/2 years ago Current Functional Impairments (Reported) Functional Limitations- ADL's Independent; unable to drive at this time Functional Limitations- Mobility/Gait Indep Functional Limitations- Work/School On disability since the last neck/shoulder injury 2016 Functional Limitations- Recreation/ Unable Hobbies PT-OP-C Subjective Start: 12/01/18 10:07 Freq: Status: Active Protocol: Document 03/16/19 08:22 EA (Rec: 03/16/19 08:28 EA [id number]) OP-PT Subjective Patient Comments Patient Comments Pt reports he is feeling a little bit better; states consistent with HEP and feels pain is less but more with stiffness. 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 Patient Reported Progress Improving Patient Questionnaires Quick Dash- Upper Extremity Quick Dash UE Score 43 Quick Dash UE Impairment 40 to 59% Impaired (Score 40- 59) PT-OP-E Functional Tests Start: 12/01/18 10:07 Freq: Status: Active Protocol: Document 03/16/19 13:16 EA (Rec: 03/16/19 13:33 EA [id number]) Functional Tests Apley's Scratch Test Action 1: The subject is instructed to touch the opposite shoulder with his/her hand. This motion checks Glenohumeral adduction, internal rotation , horizontal adduction and scapular protraction Action 2: The subject is instructed to place his/her arm overhead and reach behind the neck to touch his/her upper back. This motion checks Glenohumeral abduction, external rotation and scapular upward rotation and elevation. Action 3: The subject puts his/her hand on the lower back and reaches upward as far as possible. This motion checks glenohumeral adduction, internal rotation and scapular retraction with downward rotation Action 1- Left Opposite shoulder Action 1- Right behind opposite shoulder Action 2- Left C6 Action 2- Right T1 Action 3- Left L1 Action 3- Right T9 PT-OP-F Manual Assessment Start: 12/01/18 10:07 Freq: Status: Active Protocol: Document 03/16/19 13:16 EA (Rec: 03/16/19 13:33 EA [id number]) Manual Assessments Soft Tissue Assessment Soft Tissue Mobility Assessment Shoulder capsule, pectorals, lats. PT-OP-J Posture/Palpation/Skin Start: 12/01/18 10:07 Freq: Status: Active Protocol: Document 02/07/19 13:14 EA (Rec: 02/07/19 13:18 EA [id number]) Palpation Assessment Location One Palpation Location Left Anterior upper and lower, posterior lower shoulder Palpation Findings Soft Tissue Tightness Muscle Guarding Tenderness Palpation Details Grade 2/4 tenderness with muscle guarding PT-OP-K Range of Motion Start: 12/01/18 10:07 Freq: Status: Active Protocol: Document 03/16/19 13:16 EA (Rec: 03/16/19 13:33 EA [id number]) Shoulder Goniometric Range of Motion Shoulder Measured in Degrees Left Passive Testing Position supine and sitting Flexion 100 Extension 60 Abduction 90 Horizontal Abduction 15 External Rotation at 90 degrees 60 Abduction External Rotation at 0 degrees Abduction 45 Internal Rotation 90 Right Active Shoulder ROM WFL Yes External Rotation at 90 degrees 80 Abduction External Rotation at 0 degrees Abduction 65 PT-OP-M Strength Start: 12/01/18 10:07 Freq: Status: Active Protocol: Document 03/16/19 13:16 EA (Rec: 03/16/19 13:33 EA [id number]) Shoulder Strength Shoulder Manual Muscle Testing Right Reason Not Measured WFL Left Flexion 4- Good- Extension 4 Good Abduction (C5) 4- Good- Adduction 5 Normal External Rotation 4- Good- Internal Rotation 5 Normal Horizontal Abduction 3+ Fair+ Horizontal Adduction 5 Normal PT-OP-Q Treatments Start: 12/01/18 10:07 Freq: Status: Active Protocol: Document 03/16/19 08:22 EA (Rec: 03/16/19 08:28 EA [id number]) Cardio Equipment Upper Body Ergometer (UBE) Duration (Minutes) 5 RPM 60 Seat Position 12 Height 5 Gym Equipment Cable Column (Body Solid) Lat Pull Down Details close knotter hand Resistance 30-40# x 2 sets x 12 reps Rows Details mid and pull down Resistance 20-30-40# Reps/Time x 12 reps x 3 Therapeutic Exercises Prone Exercises 1 Prone Exercise Name T-ball: T-Y, extension Resistance #2 Reps/Minutes x5SH x 5 reps x 2 sets Sidelying Exercises 2 Sidelying Exercise Name ER Resistance 2# Reps/Minutes 5SH x 10 reps 1 Sidelying Exercise Name ABD Equipment Used 2# Reps/Minutes x 15 reps x 2 at 90 deg Standing Exercises 8 Standing Exercise Name ER Side left Equipment Used Lv1-2 Reps/Minutes x 12 reps x 2 Comments home comp 7 Standing Exercise Name wall slides flexion and scaption Side bilateral Resistance 2# Reps/Minutes x 15 reps x 2 sets Comments home comp 6 Standing Exercise Name shoulder ext Resistance Lv1-2 Reps/Minutes x 12 reps x 2 Comments home comp PT-OP-R Modalities Start: 12/01/18 10:07 Freq: Status: Active Protocol: Document 03/16/19 13:34 EA (Rec: 03/16/19 13:34 EA [id number]) Hot Pack/Cold Pack Treatment Cold Pack Location L shoulder Patient Position Supine Treatment Duration (minutes) 10 Patient Tolerance Good PT-OP-T Assessment and Plan Start: 12/01/18 10:07 Freq: Status: Active Protocol: Document 03/16/19 13:16 EA (Rec: 03/16/19 13:33 EA [id number]) Physical Therapy Assessment Rehab Potential Rehabilitation Potential Fair Impairments Impairments Activity Tolerance Functional Activities Pain ROM Soft Tissue Mobility Strength Goals Five Impairment Impaired Apley's functional test (C4-C5) Mcfp Goal (LTG) Patient will improve Apley's functional test (T1) LTG Duration 4 wks (improving) Four Impairment Impaired left shoulder strength Mail Distribution Scheme Examiner Goal (LTG) Patient will have functional shoulder strength 4/5 to ABD/F /ER LTG Duration 5 wks Three Impairment Quick Dash score of 80 Mcfp Goal (LTG) Patient will have quick Dash score of less than 40 LTG Duration 6 wks ( slow improvment: score 43 at this time) Two Impairment Impaired shoulder ROM Mail Distribution Scheme Examiner Goal (LTG) Patient will reach functional shoulder ROM to enhance shoulder active mobility LTG Duration 4 wks (slow but steady progress) One Impairment NO HEP in place Mail Distribution Scheme Examiner Goal (LTG) Patient will perform HEP independent and safe. LTG Duration 3 wks. (Goal reached) Assessment Summary Assessment Patient demonstrates slow but steady progress in L shoulder ROM and strength. Minimal compensatory strategies still noted with shoulder ABD/ Flexion due to weakness of external rotators, scap retractors and moderately lacked of scapular stabilizer. In addition, capsular tightness still noted with shoulder elev and ER. Patient is educated with HEP and continues shoulder strengthening. In my professional opinion, patient will cont. to benefit with skilled PT reach highest shoulder functional level. Physical Therapy Plan Frequency and Duration Frequency of Treatment 1x/Week Duration of Treatment 5 wks Plan of Care Start Date 03/16/19 Plan of Care End Date 04/20/19 Therapeutic Interventions Therapeutic Interventions Home Exercise Program Joint Mobilizations Manual Therapy Patient/Caregiver Education Self-Care/Home Management Soft Tissue Mobilization Taping Therapeutic Exercises Modalities Cold Pack/Ice Massage Hot Packs Next Visit Focus/Plan Next Note Type Treatment Note Next Visit Plan Review HEP. Progress as tolerated
--- NOTE | 2019-03-16 13:39 | PT.OPPOC ---
Current Diagnoses Superior glenoid labrum lesion of left shoulder, subsequent encounter (03/16/19) Provider Visit Care Team Role Provider Type Mau Hood MD Primary Care Provider Physician Specialty: Family Practice Address: [address] [place] [address], [id number] Email: Jono Alfonso MD Attending Provider Physician Specialty: Orthopedic Surgery Address: [address] [place] [address], [id number] Email: [email or web address] Plan Of Care PT-OP-T Assessment and Plan Start: 12/01/18 10:07 Freq: Status: Active Protocol: Document 03/16/19 13:16 EA (Rec: 03/16/19 13:33 EA [id number]) Physical Therapy Assessment Rehab Potential Rehabilitation Potential Fair Impairments Impairments Activity Tolerance Functional Activities Pain ROM Soft Tissue Mobility Strength Goals Five Impairment Impaired Apley's functional test (C4-C5) Care Home Goal (LTG) Patient will improve Apley's functional test (T1) LTG Duration 4 wks (improving) Four Impairment Impaired left shoulder strength Care Home Goal (LTG) Patient will have functional shoulder strength 4/5 to ABD/F /ER LTG Duration 5 wks Three Impairment Quick Dash score of 80 Clinical Athletic Instructor Goal (LTG) Patient will have quick Dash score of less than 40 LTG Duration 6 wks ( slow improvment: score 43 at this time) Two Impairment Impaired shoulder ROM Care Home Goal (LTG) Patient will reach functional shoulder ROM to enhance shoulder active mobility LTG Duration 4 wks (slow but steady progress) One Impairment NO HEP in place Care Home Goal (LTG) Patient will perform HEP independent and safe. LTG Duration 3 wks. (Goal reached) Assessment Summary Assessment Patient demonstrates slow but steady progress in L shoulder ROM and strength. Minimal compensatory strategies still noted with shoulder ABD/ Flexion due to weakness of external rotators, scap retractors and moderately lacked of scapular stabilizer. In addition, capsular tightness still noted with shoulder elev and ER. Patient is educated with HEP and continues shoulder strengthening. In my professional opinion, patient will cont. to benefit with skilled PT reach highest shoulder functional level. Physical Therapy Plan Frequency and Duration Frequency of Treatment 1x/Week Duration of Treatment 5 wks Plan of Care Start Date 03/16/19 Plan of Care End Date 04/20/19 Therapeutic Interventions Therapeutic Interventions Home Exercise Program Joint Mobilizations Manual Therapy Patient/Caregiver Education Self-Care/Home Management Soft Tissue Mobilization Taping Therapeutic Exercises Modalities Cold Pack/Ice Massage Hot Packs Next Visit Focus/Plan Next Note Type Treatment Note Next Visit Plan Review HEP. Progress as tolerated Plan of Care Dates Plan of Care Start Date 03/16/19 Plan of Care End Date 04/20/19 Please Sign and Return: I have reviewed this Plan of Care and certify that the skilled therapy services above are required to meet the patient?s needs. Physician Signature Date Printed Name and Credentials Clinical Instructor Signature Printed Name and Credentials
--- NOTE | 2019-04-13 12:10 | PT.OTN ---
Current Diagnoses Superior glenoid labrum lesion of left shoulder, subsequent encounter (04/13/19) Physical Therapy Treatment Note PT-OP-A Visit Information Start: 12/01/18 10:07 Freq: Status: Active Protocol: Document 04/13/19 08:04 EA (Rec: 04/13/19 08:11 EA [id number]) Out-Patient Physical Therapy Visit Information Visit Information Visit Type Treatment Note Visit Start Time 07:30 Visit Stop Time 08:18 Total Visit Minutes 48 Visit Number 23 PT-OP-B Current Condition Start: 12/01/18 10:07 Freq: Status: Active Protocol: Document 12/01/18 10:09 EA (Rec: 12/01/18 10:26 EA [id number]) Current Condition History of Current Condition Onset Date S/P 11/15/18 Left shoulder arthroscopic labral tear Current Complaints Left shoulder pain and weakness History of Current Condition Patient had work injury in 2016 when 2x/4 wood fell and hit his left shoulder and neck . Patient underwent cervical surgery on April/2017 due to shoulder numbness and weakness per patient. Pt reports underwent formal PT after that surgery and went well. Pt today is 2 weeks post op L shoulder labral tear arthroscopic repair. Pt is has dr. Alfonso exercises protocol to follow. Prior Treatments and Tests S/P left shoulder arthroscopic labral repair 11/15/18 Future Testing and Treatments Planned None identified Treatment Goals Patient/Caregiver Goals Patient wants to get back to previous function; states I don't assume I would get back to previous level, but at least not disable. 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- Recreation/Hobbies No limitation 1 1/2 years ago Current Functional Impairments (Reported) Functional Limitations- ADL's Independent; unable to drive at this time Functional Limitations- Mobility/Gait Indep Functional Limitations- Work/School On disability since the last neck/shoulder injury 2016 Functional Limitations- Recreation/ Unable Hobbies PT-OP-C Subjective Start: 12/01/18 10:07 Freq: Status: Active Protocol: Document 04/13/19 08:11 EA (Rec: 04/13/19 08:12 EA [id number]) OP-PT Subjective Patient Comments Patient Comments Pt reports that he has been using his left arm for his daily jobs; states there were days left shoulder is sore; states today it is much feeling better. He reports consistent with his HEP and personal fitness program. PT-OP-E Functional Tests Start: 12/01/18 10:07 Freq: Status: Active Protocol: Document 03/16/19 13:16 EA (Rec: 03/16/19 13:33 EA [id number]) Functional Tests Apley's Scratch Test Action 1- Left Opposite shoulder Action 1- Right behind opposite shoulder Action 2- Left C6 Action 2- Right T1 Action 3- Left L1 Action 3- Right T9 PT-OP-F Manual Assessment Start: 12/01/18 10:07 Freq: Status: Active Protocol: Document 03/16/19 13:16 EA (Rec: 03/16/19 13:33 EA [id number]) Manual Assessments Soft Tissue Assessment Soft Tissue Mobility Assessment Shoulder capsule, pectorals, lats. PT-OP-J Posture/Palpation/Skin Start: 12/01/18 10:07 Freq: Status: Active Protocol: Document 02/07/19 13:14 EA (Rec: 02/07/19 13:18 EA [id number]) Palpation Assessment Location One Palpation Location Left Anterior upper and lower, posterior lower shoulder Palpation Findings Soft Tissue Tightness Muscle Guarding Tenderness Palpation Details Grade 2/4 tenderness with muscle guarding PT-OP-K Range of Motion Start: 12/01/18 10:07 Freq: Status: Active Protocol: Document 03/16/19 13:16 EA (Rec: 03/16/19 13:33 EA [id number]) Shoulder Goniometric Range of Motion Shoulder Left Passive Testing Position supine and sitting Flexion 100 Extension 60 Abduction 90 Horizontal Abduction 15 External Rotation at 90 degrees 60 Abduction External Rotation at 0 degrees Abduction 45 Internal Rotation 90 Right Active Shoulder ROM WFL Yes External Rotation at 90 degrees 80 Abduction External Rotation at 0 degrees Abduction 65 PT-OP-M Strength Start: 12/01/18 10:07 Freq: Status: Active Protocol: Document 03/16/19 13:16 EA (Rec: 03/16/19 13:33 EA [id number]) Shoulder Strength Shoulder Manual Muscle Testing Right Reason Not Measured WFL Left Flexion 4- Good- Extension 4 Good Abduction (C5) 4- Good- Adduction 5 Normal External Rotation 4- Good- Internal Rotation 5 Normal Horizontal Abduction 3+ Fair+ Horizontal Adduction 5 Normal PT-OP-Q Treatments Start: 12/01/18 10:07 Freq: Status: Active Protocol: Document 04/13/19 08:04 EA (Rec: 04/13/19 08:11 EA [id number]) Cardio Equipment Upper Body Ergometer (UBE) Duration (Minutes) 5 RPM 60 Seat Position 12 Height 5 Gym Equipment Cable Column (Body Solid) Lat Pull Down Details close/widegrip Resistance 30-40# x 2 sets x 12 reps Rows Details mid and pull down Resistance 20-30-40# Reps/Time x 12 reps x 3 Shuttle Rebound 1 Exercise Details small and kimmie ball throw Reps/Duration x 3 mins Therapeutic Exercises Prone Exercises 1 Prone Exercise Name T-ball: T-Y, extension Resistance #2-4 Reps/Minutes x5SH x 5 reps x 2 sets Sitting Exercises 4 Sitting Exercise Name side raises Equipment Used 2-4# Reps/Minutes x12 re[s x2 Standing Exercises 8 Standing Exercise Name ER Side left Equipment Used Lv1-2 Reps/Minutes x 12 reps x 2 Comments home comp 5 Standing Exercise Name T-ball flyes, press, bleach boiler puller Resistance 5lbs Reps/Minutes x 12 reps 4 Standing Exercise Name BUSO shoulder push up Reps/Minutes x 10 reps 3 Standing Exercise Name T-bar shoulder ext, abduction, flexion, scaption Resistance 2-3# Reps/Minutes 2x15 Comments range with no shoulder shrugs 2 Standing Exercise Name Body Blade: front and sides Reps/Minutes x 10 secs each x 3 reps PT-OP-R Modalities Start: 12/01/18 10:07 Freq: Status: Active Protocol: Document 04/13/19 08:04 EA (Rec: 04/13/19 08:11 EA [id number]) Hot Pack/Cold Pack Treatment Cold Pack Location L shoulder Patient Position Supine Treatment Duration (minutes) 10 Patient Tolerance Good PT-OP-T Assessment and Plan Start: 12/01/18 10:07 Freq: Status: Active Protocol: Document 04/13/19 08:04 EA (Rec: 04/13/19 08:11 EA [id number]) Physical Therapy Assessment Assessment Summary Assessment Patient exhibits near to full range with shoulder abduction and flexion; ER shows 5-10 deg limited. No noted discomfort or shoulder substitution at this time. Patient continued to progress. Physical Therapy Plan Next Visit Focus/Plan Next Note Type Treatment Note Next Visit Plan Discharge to advance HEP
--- NOTE | 2019-04-18 17:24 | PT.OTN ---
Current Diagnoses Superior glenoid labrum lesion of left shoulder, subsequent encounter (04/18/19) Physical Therapy Treatment Note PT-OP-A Visit Information Start: 12/01/18 10:07 Freq: Status: Active Protocol: Document 04/18/19 17:12 EA (Rec: 04/18/19 17:24 EA [id number]) Out-Patient Physical Therapy Visit Information Visit Information Visit Type Treatment Note Visit Start Time 15:15 Visit Stop Time 16:45 Total Visit Minutes 30 Visit Number 24 PT-OP-B Current Condition Start: 12/01/18 10:07 Freq: Status: Active Protocol: Document 12/01/18 10:09 EA (Rec: 12/01/18 10:26 EA [id number]) Current Condition History of Current Condition Onset Date S/P 11/15/18 Left shoulder arthroscopic labral tear Current Complaints Left shoulder pain and weakness History of Current Condition Patient had work injury in 2016 when 2x/4 wood fell and hit his left shoulder and neck . Patient underwent cervical surgery on April/2017 due to shoulder numbness and weakness per patient. Pt reports underwent formal PT after that surgery and went well. Pt today is 2 weeks post op L shoulder labral tear arthroscopic repair. Pt is has dr. Alfonso exercises protocol to follow. Prior Treatments and Tests S/P left shoulder arthroscopic labral repair 11/15/18 Future Testing and Treatments Planned None identified Treatment Goals Patient/Caregiver Goals Patient wants to get back to previous function; states I don't assume I would get back to previous level, but at least not disable. 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- Recreation/Hobbies No limitation 1 1/2 years ago Current Functional Impairments (Reported) Functional Limitations- ADL's Independent; unable to drive at this time Functional Limitations- Mobility/Gait Indep Functional Limitations- Work/School On disability since the last neck/shoulder injury 2016 Functional Limitations- Recreation/ Unable Hobbies PT-OP-C Subjective Start: 12/01/18 10:07 Freq: Status: Active Protocol: Document 04/18/19 17:12 EA (Rec: 04/18/19 17:24 EA [id number]) OP-PT Subjective Patient Comments Patient Comments Patient reports he has been active in the past weeks and reports not much increased of symptoms; states good pain is all i feel; states he is ok to be discharged today but would like to review fitness exercises he can do for his shoulder . PT-OP-E Functional Tests Start: 12/01/18 10:07 Freq: Status: Active Protocol: Document 03/16/19 13:16 EA (Rec: 03/16/19 13:33 EA [id number]) Functional Tests Apley's Scratch Test Action 1- Left Opposite shoulder Action 1- Right behind opposite shoulder Action 2- Left C6 Action 2- Right T1 Action 3- Left L1 Action 3- Right T9 PT-OP-F Manual Assessment Start: 12/01/18 10:07 Freq: Status: Active Protocol: Document 03/16/19 13:16 EA (Rec: 03/16/19 13:33 EA [id number]) Manual Assessments Soft Tissue Assessment Soft Tissue Mobility Assessment Shoulder capsule, pectorals, lats. PT-OP-J Posture/Palpation/Skin Start: 12/01/18 10:07 Freq: Status: Active Protocol: Document 02/07/19 13:14 EA (Rec: 02/07/19 13:18 EA [id number]) Palpation Assessment Location One Palpation Location Left Anterior upper and lower, posterior lower shoulder Palpation Findings Soft Tissue Tightness Muscle Guarding Tenderness Palpation Details Grade 2/4 tenderness with muscle guarding PT-OP-K Range of Motion Start: 12/01/18 10:07 Freq: Status: Active Protocol: Document 03/16/19 13:16 EA (Rec: 03/16/19 13:33 EA [id number]) Shoulder Goniometric Range of Motion Shoulder Left Passive Testing Position supine and sitting Flexion 100 Extension 60 Abduction 90 Horizontal Abduction 15 External Rotation at 90 degrees 60 Abduction External Rotation at 0 degrees Abduction 45 Internal Rotation 90 Right Active Shoulder ROM WFL Yes External Rotation at 90 degrees 80 Abduction External Rotation at 0 degrees Abduction 65 PT-OP-M Strength Start: 12/01/18 10:07 Freq: Status: Active Protocol: Document 03/16/19 13:16 EA (Rec: 03/16/19 13:33 EA [id number]) Shoulder Strength Shoulder Manual Muscle Testing Right Reason Not Measured WFL Left Flexion 4- Good- Extension 4 Good Abduction (C5) 4- Good- Adduction 5 Normal External Rotation 4- Good- Internal Rotation 5 Normal Horizontal Abduction 3+ Fair+ Horizontal Adduction 5 Normal PT-OP-Q Treatments Start: 12/01/18 10:07 Freq: Status: Active Protocol: Document 04/18/19 17:12 EA (Rec: 04/18/19 17:24 EA [id number]) Cardio Equipment Upper Body Ergometer (UBE) Duration (Minutes) 5 RPM 60 Seat Position 12 Height 5 Gym Equipment Cable Column (Body Solid) Lat Pull Down Details close/widegrip Resistance 30-40# x 2 sets x 12 reps Reps/Time HEP comp Rows Details mid and pull down Resistance 20-30-40# Reps/Time x 12 reps x 3 Shuttle Rebound 1 Exercise Details small and large ball throw Reps/Duration x 3 mins Therapeutic Exercises Prone Exercises 2 Prone Exercise Name Buso elbow and shoulder push up Reps/Minutes x 8 reps x 2 sets 1 Prone Exercise Name T-ball: T-Y, extension Resistance #2-4 Reps/Minutes x5SH x 5 reps x 2 sets Comments HEP com Standing Exercises 5 Standing Exercise Name T-ball 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, 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, 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 Resistance 7-9lbs Reps/Minutes x 12 reps Comments HEP comp 3 Standing Exercise Name T-bar shoulder ext, abduction, flexion, scaption Resistance 2-3# Reps/Minutes 2x15 Comments HEP comp 2 Standing Exercise Name Body Blade: front and sides Reps/Minutes x 10 secs each x 3 reps Self-Care/Home Management Treatment Education Patient Education Home Exercise Program Joint Protection Pain Management Safety PT-OP-R Modalities Start: 12/01/18 10:07 Freq: Status: Active Protocol: Document 04/13/19 08:04 EA (Rec: 04/13/19 08:11 EA [id number]) Hot Pack/Cold Pack Treatment Cold Pack Location L shoulder Patient Position Supine Treatment Duration (minutes) 10 Patient Tolerance Good PT-OP-T Assessment and Plan Start: 12/01/18 10:07 Freq: Status: Active Protocol: Document 04/18/19 17:12 EA (Rec: 04/18/19 17:24 EA [id number]) Physical Therapy Assessment Assessment Summary Assessment Patient exhibits full shoulder AROM except with ER/IR which shows 5 degrees deficits. I advised to cont. shoulder flexibility HEP. Overall patient is progressed. Physical Therapy Plan Discharge Physical Therapy Discharge Comments Patient is discharge due to insurance limitation. Patient is discharge but shows good recovery.
== END 2019-04-18 17:31 | disposition home or self-care (01) ==
LOC: PHYS 16:45
PROVIDERS: PCP Family Medicine; Visit Provider Orthopaedic Surgery
DX: S43.432D Superior glenoid labrum lesion of left shoulder, subsequent encounter (principal)
CPT/HCPCS: 97010; 97110; 97140; 97162; 97535

== ENCOUNTER 2020-04-27 14:38 | Emergency (ER) | payer OTHER, MEDICAID, SELFPAY ==
[2020-04-27 14:44] VITALS: BP 201/118; PULSE 95; RESP 14; TEMP 36.4; O2SAT 98; BMI 29.0
--- NOTE | 2020-04-27 14:46 | DI.RAD.S_ITS ---
PROCEDURE: XR KNEE RT 3V INDICATIONS: extreme pain TECHNIQUE: 3 views of the knee were acquired. COMPARISON: None. FINDINGS: Bones: No acute fractures or dislocations. Minimal degenerative changes of the patellofemoral compartment. Small enthesophyte on the superior pole the patella at the insertion site of the distal quadriceps tendon. No suspicious bony lesions. Soft tissues: No joint effusion. No suspicious soft tissue calcifications. IMPRESSION: Right knee without acute fracture or malalignment. Minimal degenerative change involving the right patellofemoral compartment. Small distal right quadriceps tendon enthesophyte. Dictated by: Evgeny Montez M.D. on 04/27/2020 at 15:26 Approved by: Evgeny Montez M.D. on 04/27/2020 at 15:27
--- NOTE | 2020-04-27 15:10 | ED.EXTPRO ---
HPI - Extremity Problem <Savanah MonaeANDREA - Last Filed: 04/27/20 20:23> General Chief complaint: Extremity Problem,Nontraumatic Stated complaint: right knee pain/swelling 2weeks Time Seen by Provider: 04/27/20 14:51 Source: patient Mode of arrival: Ambulatory Limitations: no limitations History of Present Illness HPI Narrative: 49yo male presenting to the emergency department for right knee swelling. 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 With swelling occurred for about a week without redness or tenderness, he has been using ice and elevation night which has helped. However over the past few days it has become worse and now than use red and hot. Patient states he has been taking tramadol, ibuprofen, and Aleve to help with pain. Patient states the pain is a 8/10 and has difficulty bearing weight on the leg and flexing his leg. Patient denies any trauma to the leg. He denies any fevers, chills, nausea, vomiting, diarrhea, chest pain, shortness of breath, or any other concerns. Related Data Home Medications Medication Instructions Recorded Confirmed multivitamin [Multiple Vitamins] 1 tab PO DAILY #0 02/08/18 11/15/18 omeprazole 20 mg PO DAILY PRN #0 02/08/18 11/15/18 albuterol sulfate 2 puff INHALATION Q4H PRN 10/04/18 10/04/18 ascorbic acid (vitamin C) [Vitamin 500 mg PO DAILY 10/04/18 11/15/18 C] [id number]-[id number]-csf-[id number] 1 tab PO DAILY 10/04/18 11/15/18 [Joint Health] chlorhexidine gluconate 1 applic TOPICAL DAILYX5 10/04/18 10/04/18 zinc 50 mg PO DAILY 10/04/18 11/15/18 Previous Rx's Medication Instructions Recorded hydroxyzine pamoate 25 mg PO Q4HR PRN #40 cap 11/15/18 oxycodone 5 mg PO Q3HR PRN #40 tab 11/15/18 doxycycline hyclate 100 mg PO BID 7 Days #14 cap 04/27/20 hydrocodone-acetaminophen [Stanton] 1 tab PO Q4-6H PRN #7 tab 04/27/20 meloxicam 7.5 mg PO DAILY #14 tab 04/27/20 Allergies Allergy/AdvReac Type Severity Reaction Status Date / Time No Known Drug Allergies Allergy Verified 04/27/20 14:44 Review of Systems <ANDREA Perez - Last Filed: 04/27/20 20:23> Review of Systems Narrative: REVIEW OF SYSTEMS: GENERAL: Denies fever or chills. HENT: No head trauma. CARDIOVASCULAR: No chest pain or syncope. RESPIRATORY: No shortness of breath or cough. GASTROINTESTINAL: No nausea, vomiting, diarrhea, or constipation. MUSCULOSKELETAL: Complains of right knee pain, see HPI. INTEGUMENTARY: No rash, lesions, or pruritus. NEURO: No numbness, tingling. PSYCH: No behavior or mood changes. Patient History <ANDREA Perez - Last Filed: 04/27/20 20:23> Medical History Anxiety (Acute) Concussion (Acute) Difficult airway for intubation (Acute) Generalized headaches (Acute) GERD (gastroesophageal reflux disease) (Acute) Hand fracture (Acute) Head trauma (Acute ~10/04/18) Hearing impaired (Acute) Jaw fracture (Acute ~2006) Numbness (Acute) AVILA (obstructive sleep apnea) (Acute) Tear of left glenoid labrum (Acute) Surgical History Hx of cervical discectomy (Acute 02/13/18) Social History household members: significant other Smoking Status: Never smoker alcohol intake: current Smoking Status: Never smoker alcohol intake frequency: holidays/special occasions only Substance Use Type: does not use Exam <ANDREA Perez - Last Filed: 04/27/20 20:23> Initial Vital Signs Initial Vital Signs: Vital Signs Temperature 97.6 F 04/27/20 14:44 Pulse Rate 95 H 04/27/20 14:44 Respiratory Rate 14 04/27/20 14:44 Blood Pressure 201/118 H 04/27/20 14:44 Pulse Oximetry 98 04/27/20 14:44 PHYSICAL EXAMINATION: GENERAL: Well groomed, alert, and cooperative. Answers questions promptly and appropriately. Vital signs noted. HENT: Normocephalic, atraumatic. EYES: Symmetrical, sclera white, no periorbital swelling. CARDIOVASCULAR: S1 and S2 sounds normal. Regular rate and rhythm, no murmurs, clicks, or bruits. No pedal edema. RESPIRATORY: Normal respiratory rate, trachea midline, airway patent. No stridor, nasal flaring or accessory muscle use. Lungs are clear in all walker. MUSCULOSKELETAL: Anterior swelling noted to right knee, increased temp, and tenderness with palpation. Additional 2 cm swelling on top of joint effusion noted to prepatellar bursa. Patient is able to flex knee to approximately 90? but reports pain, full extension. Difficulty with weight-bearing due to pain. Moderate erythema noted to knee with increased discoloration to lateral aspect of joint. Equal tone and mass bilaterally. EXTREMITIES: CMS intact. Pedal pulses 2+ and equal bilaterally. SKIN: Warm, dry, soft, appropriate color for ethnicity. No lesions, rashes, or wounds. NEURO: Alert and Oriented X 3. No sensory deficits. PSYCH: Appropriate affect and mood. <Ronaldo Venegas DO - Last Filed: 04/28/20 07:04> Initial Vital Signs Initial Vital Signs: Vital Signs Temperature 97.6 F 04/27/20 14:44 Pulse Rate 95 H 04/27/20 14:44 Respiratory Rate 14 04/27/20 14:44 Blood Pressure 201/118 H 04/27/20 14:44 Pulse Oximetry 98 04/27/20 14:44 Course <ANDREA Perez - Last Filed: 04/27/20 20:23> Course Course Narrative: Patient reported decreased pain after Toradol administration. Orders Ordered: Discontinued Medications Doxycycline Hyclate (Vibramycin) 100 mg PO NOW ONE Stop: 04/27/20 15:48 Last Admin: 04/27/20 16:00 Dose: 100 mg Documented by: RACIEL Ketorolac Tromethamine (Toradol) 30 mg IV NOW ONE Stop: 04/27/20 15:09 Last Admin: 04/27/20 15:25 Dose: 30 mg Documented by: RACIEL Consultations Consultation #1: Dr. Venegas visualized patient, no joint aspiration needed at this time. Vital Signs Vital signs: Vital Signs - 8 hr 04/27/20 14:44 04/27/20 16:23 Temperature 97.6 F Pulse Rate 95 H 78 Respiratory Rate 14 18 Blood Pressure 201/118 H 136/83 Pulse Oximetry 98 98 <Ronaldo Venegas DO - Last Filed: 04/28/20 07:04> Orders Ordered: Discontinued Medications Doxycycline Hyclate (Vibramycin) 100 mg PO NOW ONE Stop: 04/27/20 15:48 Last Admin: 04/27/20 16:00 Dose: 100 mg Documented by: RACIEL Ketorolac Tromethamine (Toradol) 30 mg IV NOW ONE Stop: 04/27/20 15:09 Last Admin: 04/27/20 15:25 Dose: 30 mg Documented by: RACIEL Vital Signs Vital signs: Vital Signs - 8 hr 04/27/20 14:44 04/27/20 16:23 Temperature 97.6 F Pulse Rate 95 H 78 Respiratory Rate 14 18 Blood Pressure 201/118 H 136/83 Pulse Oximetry 98 98 MDM - Extremity (Nontraumatic) <ANDREA Perez - Last Filed: 04/27/20 20:23> Medical Records Attestation: I reviewed the patient's medical records. Lab Data Attestation: I reviewed the patient's lab results. Result diagrams: 04/27/20 15:33 04/27/20 15:33 Labs: Lab Results 04/27/20 04/27/20 Range/Units 15:33 15:33 WBC 10.2 (4.5-11.0) X10^3/uL RBC 5.12 (4.5-5.9) X10^6/uL Hgb 14.6 (13.5-17.5) g/dL Hct 44.6 (41-53) % MCV 87.1 (80-100) fL MCH 28.6 (26-34) PG MCHC 32.8 (30-36) % RDW 13.2 (11.6-14.8) % Plt Count 338 (150-400) X10^3/uL Neut % (Auto) 77.8 H (50-75) % Lymph % (Auto) 12.3 L (25-40) % [place] % (Auto) 8.3 (3-14) % Eos % (Auto) 1.1 L (2-4) % Baso % (Auto) 0.5 (0-2) % Neut # (Auto) 8000 H (8828-4102) /uL Lymph # (Auto) 1300 (9596-5373) /uL [place] # (Auto) 800 (0-900) /uL Eos # (Auto) 100 (0-450) /uL Baso # (Auto) 0 (0-100) /uL Sodium 137 (137-145) mmol/L Potassium 4.2 (3.4-5.1) mmol/L Chloride 102 (98-107) mmol/L Carbon Dioxide 27 (22-32) mmol/L BUN 20 (9-20) mg/dL Creatinine 0.89 (0.66-1.25) mg/dL Estimated GFR > 60.0 (>60) mL/min BUN/Creatinine Ratio 22.5 H (6-22) Glucose 100 (70-100) mg/dL Calcium 9.6 (8.4-10.2) mg/dL Total Bilirubin 0.3 (0.2-1.3) mg/dL AST 33 (17-59) IU/L ALT 33 (<50) IU/L Alkaline Phosphatase 52 (38-126) U/L Total Protein 7.5 (6.3-8.2) g/dL Albumin 4.4 (3.5-5.0) g/dL Globulin 3.1 (1.7-4.1) g/dL Albumin/Globulin Ratio 1.4 (1.0-2.8) Imaging Data Extremity x-ray #1: Radiologist's Impression: [address] [address] XRay Report Signed Patient: Francisco Leon WMR#: [id number] : 1970Acct:[id number] Age/Sex: 49 / MDate of Service: 04/27/20 Loc: ED Accession Number: [id number] Procedure: XR knee RT 3V Ordering Provider: Ronaldo Venegas D.O. PROCEDURE: XR KNEE RT 3V INDICATIONS: extreme pain TECHNIQUE: 3 views of the knee were acquired. COMPARISON: None. FINDINGS: Bones: No acute fractures or dislocations. Minimal degenerative changes of the patellofemoral compartment. Small enthesophyte on the superior pole the patella at the insertion site of the distal quadriceps tendon. No suspicious bony lesions. Soft tissues: No joint effusion. No suspicious soft tissue calcifications. IMPRESSION: Right knee without acute fracture or malalignment. Minimal degenerative change involving the right patellofemoral compartment. Small distal right quadriceps tendon enthesophyte. Dictated by: Evgeny Montez M.D. on 04/27/2020 at 15:26 Approved by: Evgeny Montez M.D. on 04/27/2020 at 15:27 [facility] Narrative Medical decision making narrative: 49 year old male presenting to the emergency department for right knee swelling and pain. Most likely bursitis with associated cellulitis due to history of significant kneeling on knee, swelling, and recent development of erythema and worsening pain. Erythema appears to be superficial with swelling mostly located into the bursa. No fluid present for aspiration and patient is able to bend knee to 90? without severe pain decreases my suspicion of septic joint. Patient is hemodynamically stable, no white blood cell count, patient was started on doxycycline and anti-inflammatories He was encouraged to follow up with his primary care provider in 1-2 weeks for further evaluation. Patient agreed to plan of care verbalized understanding <Ronaldo Venegas DO - Last Filed: 04/28/20 07:04> Lab Data Labs: Lab Results 04/27/20 04/27/20 Range/Units 15:33 15:33 WBC 10.2 (4.5-11.0) X10^3/uL RBC 5.12 (4.5-5.9) X10^6/uL Hgb 14.6 (13.5-17.5) g/dL Hct 44.6 (41-53) % MCV 87.1 (80-100) fL MCH 28.6 (26-34) PG MCHC 32.8 (30-36) % RDW 13.2 (11.6-14.8) % Plt Count 338 (150-400) X10^3/uL Neut % (Auto) 77.8 H (50-75) % Lymph % (Auto) 12.3 L (25-40) % [place] % (Auto) 8.3 (3-14) % Eos % (Auto) 1.1 L (2-4) % Baso % (Auto) 0.5 (0-2) % Neut # (Auto) 8000 H (0174-1679) /uL Lymph # (Auto) 1300 (5380-0812) /uL [place] # (Auto) 800 (0-900) /uL Eos # (Auto) 100 (0-450) /uL Baso # (Auto) 0 (0-100) /uL Sodium 137 (137-145) mmol/L Potassium 4.2 (3.4-5.1) mmol/L Chloride 102 (98-107) mmol/L Carbon Dioxide 27 (22-32) mmol/L BUN 20 (9-20) mg/dL Creatinine 0.89 (0.66-1.25) mg/dL Estimated GFR > 60.0 (>60) mL/min BUN/Creatinine Ratio 22.5 H (6-22) Glucose 100 (70-100) mg/dL Calcium 9.6 (8.4-10.2) mg/dL Total Bilirubin 0.3 (0.2-1.3) mg/dL AST 33 (17-59) IU/L ALT 33 (<50) IU/L Alkaline Phosphatase 52 (38-126) U/L Total Protein 7.5 (6.3-8.2) g/dL Albumin 4.4 (3.5-5.0) g/dL Globulin 3.1 (1.7-4.1) g/dL Albumin/Globulin Ratio 1.4 (1.0-2.8) Discharge Plan Departure Patient Disposition: Home Clinical Impression: Bursitis Qualifiers: Bursitis location: knee Knee bursitis location: prepatellar bursitis Laterality: right Qualified Code(s): M70.41 - Prepatellar bursitis, right knee Cellulitis Qualifiers: Site of cellulitis: extremity Site of cellulitis of extremity: lower extremity Laterality: right Qualified Code(s): L03.115 - Cellulitis of right lower limb Discharge Date/Time: 04/27/20 16:39 Instructions: DI for Cellulitis -- Adult, DI for Bursitis Activity Restrictions/Additional Instructions: Thank you for entrusting me with your care today. As discussed, your x-rays negative for any fractures or foreign bodies. It appears your pain is most likely caused from bursitis which is the swelling of a fluid sac in your knee, this is made worse by frequently kneeling. Additionally, it appears you have infection in your skin. I have prescribed you meloxicam to help with the bursitis, do not take ibuprofen with this. Additionally, as prescribed you doxycycline to help with infection, please take this accordingly. Your medications were sent to [facility] in [place], [place] Elevate your leg as much as possible, apply ice, use Samy wrap when possible. Follow-up with your primary care provider in the next 1-2 weeks for further evaluation. Return emergency department for any new or worsening symptoms such as worsening redness, severe pain, fevers, or any other concerns. Prescriptions: New doxycycline hyclate 100 mg capsule 100 mg PO BID 7 Days Qty: 14 RF: 0 meloxicam 7.5 mg tablet 7.5 mg PO DAILY Qty: 14 RF: 0 hydrocodone-acetaminophen [Stanton] 5-325 mg tablet 1 tab PO Q4-6H PRN (Reason: pain) Qty: 7 RF: 0 No Action omeprazole 20 MG capsule,delayed release(DR/EC) 20 mg PO DAILY PRN (Reason: Heartburn) Qty: 0 RF: 0 multivitamin [Multiple Vitamins] 1 EACH tablet 1 tab PO DAILY Qty: 0 RF: 0 oxycodone 5 mg Tablet 5 mg PO Q3HR PRN (Reason: Pain, Moderate (4-6)) Qty: 40 RF: 0 hydroxyzine pamoate 25 mg Capsule 25 mg PO Q4HR PRN (Reason: Spasms) Qty: 40 RF: 0 albuterol sulfate 90 mcg/actuation HFA aerosol inhaler 2 puff Inhalation Q4H PRN (Reason: Shortness Of Breath Or Wheezing) RF: 0 chlorhexidine gluconate 4 % liquid 1 applic Topical DAILYX5 RF: 0 ascorbic acid (vitamin C) [Vitamin C] 1,000 mg Tablet 500 mg PO DAILY RF: 0 zinc 50 mg Tablet 50 mg PO DAILY RF: 0 rafzwyxfo-imamiwzq-bpf-hyalur [Joint Health] 40-10-5-3.3 mg Tablet 1 tab PO DAILY RF: 0 Referrals: Mau Hood MD [Primary Care Provider] - <Ronlado Venegas DO - Last Filed: 04/28/20 07:04> [facility] Attestation: I was immediately available in the department for consultation. This documentation has been reviewed and I agree with assessment and plan. Supervised by Ronaldo Venegas DO
[2020-04-27] MEDS: KETOROLAC 60 MG/2 ML VIAL 30 MG IV (15:25)
[2020-04-27 15:42] LABS: Add Manual Diff / Slide Review NO; Basophils Absolute Auto 0 /uL (0-100); Basophils Percent Auto 0.5 % (0-2); Eosinophils Absolute Auto 100 /uL (0-450); Eosinophils Percent Auto 1.1 % (2-4); Hematocrit 44.6 % (41-53); Hemoglobin 14.6 g/dL (13.5-17.5); Lymphocytes Absolute Auto 1300 /uL (1100-4500); Lymphocytes Percent Auto 12.3 % (25-40); Mean Corpuscular HGB Conc 32.8 % (30-36); Mean Corpuscular Hemoglobin 28.6 PG (26-34); Mean Corpuscular Volume 87.1 fL (80-100); Monocytes Absolute Auto 800 /uL (0-900); Monocytes Percent Auto 8.3 % (3-14); Neutrophils Absolute Auto 8000 /uL (1500-7000); Neutrophils Percent Auto 77.8 % (50-75); Platelet Count 338 X10^3/uL (150-400); Red Blood Cell Count 5.12 X10^6/uL (4.5-5.9); Red Cell Distribution Width 13.2 % (11.6-14.8); White Blood Cell Count 10.2 X10^3/uL (4.5-11.0)
[2020-04-27 15:57] LABS: Alanine Aminotransferase 33 IU/L (<50); Albumin 4.4 g/dL (3.5-5.0); Albumin Globulin Ratio 1.4 (1.0-2.8); Alkaline Phosphatase 52 U/L (38-126); Aspartate Aminotransferase 33 IU/L (17-59); BUN Creatinine Ratio 22.5 (6-22); Bilirubin Total 0.3 mg/dL (0.2-1.3); Blood Urea Nitrogen 20 mg/dL (9-20); Calcium 9.6 mg/dL (8.4-10.2); Carbon Dioxide 27 mmol/L (22-32); Chloride 102 mmol/L (98-107); Estimated Glomerular Filt Rate > 60.0 mL/min (>60); Globulin 3.1 g/dL (1.7-4.1); Glucose 100 mg/dL (70-100); HEMOLYSIS < 15 (0-50); Potassium 4.2 mmol/L (3.4-5.1); Sodium 137 mmol/L (137-145); Total Protein 7.5 g/dL (6.3-8.2)
[2020-04-27] MEDS: DOXYCYCLINE HYCLATE 100 MG TABLET PO (16:00)
[2020-04-27 16:23] VITALS: BP 136/83; PULSE 78; RESP 18; O2SAT 98
== END 2020-04-27 16:39 | disposition home or self-care (01) ==
PROVIDERS: Emergency Provider Nurse Practitioner; PCP Family Medicine
DX: M70.41 Prepatellar bursitis, right knee (principal); L03.115 Cellulitis of right lower limb
CPT/HCPCS: 36415; 73562; 80053; 85025; 96374; 99284; J1885

== ENCOUNTER 2020-07-07 13:16 | Emergency (ER) | payer OTHER, MEDICAID, SELFPAY ==
[2020-07-07 13:20] VITALS: BP 178/110; PULSE 85; RESP 15; TEMP 36.3; O2SAT 97; BMI 29.8
--- NOTE | 2020-07-07 13:29 | ED_ITS ---
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 He states that there is a BN his peer when he was working on a shed any accidentally drank it. This occurred approximately 90 minutes to 2 hours ago. He does not have any history of anaphylactic reactions to bees. He states that he sometimes has some localized irritation. He denies any chest pain or shortness of breath. He states he presents mostly because his throat is very painful. He states he took 2 tbsp of liquid Benadryl after it happened. Denies any trouble swallowing his own saliva. Related Data Home Medications Medication Instructions Recorded Confirmed multivitamin [Multiple Vitamins] 1 tab PO DAILY #0 02/08/18 11/15/18 omeprazole 20 mg PO DAILY PRN #0 02/08/18 11/15/18 albuterol sulfate 2 puff INHALATION Q4H PRN 10/04/18 10/04/18 ascorbic acid (vitamin C) [Vitamin 500 mg PO DAILY 10/04/18 11/15/18 C] [id number] 1 tab PO DAILY 10/04/18 11/15/18 [Joint Health] chlorhexidine gluconate 1 applic TOPICAL DAILYX5 10/04/18 10/04/18 zinc 50 mg PO DAILY 10/04/18 11/15/18 Previous Rx's Medication Instructions Recorded hydroxyzine pamoate 25 mg PO Q4HR PRN #40 cap 11/15/18 oxycodone 5 mg PO Q3HR PRN #40 tab 11/15/18 hydrocodone-acetaminophen [Winton] 1 tab PO Q4-6H PRN #7 tab 04/27/20 meloxicam 7.5 mg PO DAILY #14 tab 04/27/20 ketorolac 10 mg PO TID PRN #15 tab 07/07/20 prednisone 40 mg PO DAILY 5 Days #10 tab 07/07/20 Allergies Allergy/AdvReac Type Severity Reaction Status Date / Time No Known Drug Allergies Allergy Verified 07/07/20 13:25 Review of Systems <DANIEL Kemp - Last Filed: 07/07/20 16:27> Review of Systems Narrative: GENERAL: Denies chills, fatigue, malaise, fever, sweats. HEENT: See HPI RESPIRATORY: Denies dyspnea, cough, wheezing, hemoptysis, sputum. CARDIOVASCULAR: Denies chest pain, palpitations, orthopnea, edema, GASTROINTESTINAL: Denies nausea, vomiting, abdominal pain, diarrhea, constipation, melena. : Denies dysuria, frequency, incontinence, hematuria, urinary retention. MUSCULOSKELETAL: denies weakness, joint pain, or bony pain SKIN: Denies rash, skin lesions, or other NEUROLOGIC: Denies weakness, headache, numbness, change in speech, confusion, seizures, incoordination. PSYCHIATRIC: No concerning psychosocial issues. 12 point review of systems is negative except for those stated above Patient History <DANIEL Kemp - Last Filed: 07/07/20 16:27> Medical History Anxiety (Acute) Concussion (Acute) Difficult airway for intubation (Acute) Generalized headaches (Acute) GERD (gastroesophageal reflux disease) (Acute) Hand fracture (Acute) Head trauma (Acute ~10/04/18) Hearing impaired (Acute) Jaw fracture (Acute ~2006) Numbness (Acute) AVILA (obstructive sleep apnea) (Acute) Tear of left glenoid labrum (Acute) Surgical History Hx of cervical discectomy (Acute 02/13/18) Social History household members: significant other Smoking Status: Never smoker alcohol intake: current Smoking Status: Never smoker alcohol intake frequency: holidays/special occasions only Substance Use Type: does not use Exam <DANIEL Kemp - Last Filed: 07/07/20 16:27> Narrative Exam Narrative: GENERAL: This is a well-nourished, well-developed patient, in no acute distress HEAD: Atraumatic. Normocephalic. No temporal or scalp tenderness. EYES: Pupils equal round and reactive. Extraocular motions intact. No scleral icterus. No injection or drainage. ENT: Nose without bleeding, purulent drainage or septal hematoma. Throat without erythema, tonsillar hypertrophy or exudate. Uvula midline. Airway patent. NECK: Trachea midline. No JVD or lymphadenopathy. Supple, nontender, no meni ngeal signs. CARDIOVASCULAR: Regular rate and rhythm RESPIRATORY: Clear to auscultation. Breath sounds equal bilaterally. No wheezes, rales, or rhonchi. No cough. No increased respiratory effort. No accessory muscle use. Speaking full sentences. No stridor. GASTROINTESTINAL: Abdomen soft, non-tender, nondistended. No hepato- splenomegaly, or palpable masses. No guarding. EXTREMITIES: No clubbing, cyanosis, or edema. No joint tenderness, effusion, or edema noted. BACK: Nontender without deformity or crepitance. No flank tenderness. NEURO: AOx3. SKIN: No rash or erythema on visible skin. Initial Vital Signs Initial Vital Signs: Vital Signs Temperature 97.4 F L 07/07/20 13:20 Pulse Rate 85 07/07/20 13:20 Respiratory Rate 15 07/07/20 13:20 Blood Pressure 178/110 H 07/07/20 13:20 Pulse Oximetry 97 07/07/20 13:20 <Ronaldo Venegas DO - Last Filed: 07/08/20 07:21> Initial Vital Signs Initial Vital Signs: Vital Signs Temperature 97.4 F L 07/07/20 13:20 Pulse Rate 85 07/07/20 13:20 Respiratory Rate 15 07/07/20 13:20 Blood Pressure 178/110 H 07/07/20 13:20 Pulse Oximetry 97 07/07/20 13:20 Scores <DANIEL Kemp - Last Filed: 07/07/20 16:27> GCS [place] coma scale eye opening: Spontaneous [place] coma scale verbal response: Orientated Kandi coma scale motor response: Obey commands [place] coma scale total score: 15 Course <DANIEL Kemp - Last Filed: 07/07/20 16:27> Orders Ordered: Discontinued Medications Ketorolac Tromethamine (Toradol) 60 mg IM NOW ONE Stop: 07/07/20 13:29 Last Admin: 07/07/20 13:34 Dose: 60 mg Documented by: ALEKS Lidocaine HCl (Viscous Lidocaine 2%) 15 ml PO NOW ONE Stop: 07/07/20 13:32 Last Admin: 07/07/20 13:35 Dose: 15 ml Documented by: ALEKS Ondansetron HCl (Zofran Odt) 4 mg SL NOW ONE Stop: 07/07/20 13:43 Last Admin: 07/07/20 13:45 Dose: 4 mg Documented by: ALEKS Prednisone (Deltasone) 60 mg PO NOW ONE Stop: 07/07/20 13:32 Last Admin: 07/07/20 13:45 Dose: 60 mg Documented by: ALEKS Vital Signs Vital signs: Vital Signs - 8 hr 07/07/20 13:20 07/07/20 14:07 Temperature 97.4 F L Pulse Rate 85 65 Respiratory Rate 15 14 Blood Pressure 178/110 H 152/95 H Pulse Oximetry 97 100 <Ronaldo Venegas DO - Last Filed: 07/08/20 07:21> Orders Ordered: Discontinued Medications Ketorolac Tromethamine (Toradol) 60 mg IM NOW ONE Stop: 07/07/20 13:29 Last Admin: 07/07/20 13:34 Dose: 60 mg Documented by: ALEKS Lidocaine HCl (Viscous Lidocaine 2%) 15 ml PO NOW ONE Stop: 07/07/20 13:32 Last Admin: 07/07/20 13:35 Dose: 15 ml Documented by: ALEKS Ondansetron HCl (Zofran Odt) 4 mg SL NOW ONE Stop: 07/07/20 13:43 Last Admin: 07/07/20 13:45 Dose: 4 mg Documented by: ALEKS Prednisone (Deltasone) 60 mg PO NOW ONE Stop: 07/07/20 13:32 Last Admin: 07/07/20 13:45 Dose: 60 mg Documented by: ALEKS Vital Signs Vital signs: Vital Signs - 8 hr 07/07/20 13:20 07/07/20 14:07 Temperature 97.4 F L Pulse Rate 85 65 Respiratory Rate 15 14 Blood Pressure 178/110 H 152/95 H Pulse Oximetry 97 100 MDM - Allergic Reaction <DANIEL Kemp - Last Filed: 07/07/20 16:27> MDM Narrative Medical decision making narrative: The patient is a 49-year-old male who presents with a chief complaint of having swallowed a bee and throat discomfort. He has no signs of anaphylaxis, no shortness of breath, is managing his own secretions well. He feels him slightly improved after the above-stated therapies and is requesting to leave. I discussed length importance of following up with primary care provider the next few days as well as come back to the emergency department for any acute concerns such as difficulty breathing, swelling of the lips face or tongue etcetera. The patient is able to swallow pills in the emergency department, manage his own secretions and taken liquid. He has no signs of anaphylaxis. The patient does mention that he had some chest heaviness earlier today, and I asked if he wanted investigated by EKG, lab work etcetera. He states he does not want this addressed and will like to leave. I encouraged him to come back to the emergency department for any acute concerns including concern of heart attack or stroke. The patient again declined further evaluation regarding his episode of chest pain. Patient has no questions or concerns upon discharge and states understanding of return precautions as well as follow-up care. Discharge Plan Departure Patient Disposition: Home Clinical Impression: Bee sting Qualifiers: Encounter type: initial encounter Injury intent: accidental or unintentional Qualified Code(s): T63.441A - Toxic effect of venom of bees, accidental (unintentional), initial encounter Pharyngitis Qualifiers: Pharyngitis/tonsillitis etiology: unspecified etiology Qualified Code(s): J02.9 - Acute pharyngitis, unspecified Discharge Date/Time: 07/07/20 14:48 Instructions: How to Care for an Insect Bite or Sting, DI for Pharyngitis/Tonsillopharyngitis -- Adult, DI for Insect Bites and Stings Activity Restrictions/Additional Instructions: Thank you for trusting us with your care today. As discussed, I sent 2 prescriptions to [facility] in [facility] I have given you a prescription of Toradol. This is an NSAID. Do not combine it with other NSAIDs such as Aleve or ibuprofen. I suggest taking it with some food, as it can irritate your stomach. Please follow-up with primary care provider in the next few days. Please come back to emergency department for any acute concerns such as difficulty breathing, inability keep down fluids etc. As discussed please come back to the emergency department for any acute concerns including concern of chest pain, shortness of breath, concern of heart attack or stroke. You have elected for us to not evaluate the chest heaviness that you had earlier today. Prescriptions: New ketorolac 10 mg tablet 10 mg PO TID PRN (Reason: pain) Qty: 15 RF: 0 prednisone 20 mg tablet 40 mg PO DAILY 5 Days Qty: 10 RF: 0 No Action omeprazole 20 MG capsule,delayed release(DR/EC) 20 mg PO DAILY PRN (Reason: Heartburn) Qty: 0 RF: 0 multivitamin [Multiple Vitamins] 1 EACH tablet 1 tab PO DAILY Qty: 0 RF: 0 oxycodone 5 mg Tablet 5 mg PO Q3HR PRN (Reason: Pain, Moderate (4-6)) Qty: 40 RF: 0 hydroxyzine pamoate 25 mg Capsule 25 mg PO Q4HR PRN (Reason: Spasms) Qty: 40 RF: 0 albuterol sulfate 90 mcg/actuation HFA aerosol inhaler 2 puff Inhalation Q4H PRN (Reason: Shortness Of Breath Or Wheezing) RF: 0 chlorhexidine gluconate 4 % liquid 1 applic Topical DAILYX5 RF: 0 ascorbic acid (vitamin C) [Vitamin C] 1,000 mg Tablet 500 mg PO DAILY RF: 0 zinc 50 mg Tablet 50 mg PO DAILY RF: 0 otarhrvpo-ijdtplhh-amf-hyalur [Joint Health] 40-10-5-3.3 mg Tablet 1 tab PO DAILY RF: 0 meloxicam 7.5 mg tablet 7.5 mg PO DAILY Qty: 14 RF: 0 hydrocodone-acetaminophen [Winton] 5-325 mg tablet 1 tab PO Q4-6H PRN (Reason: pain) Qty: 7 RF: 0 Referrals: Mau Hood MD [Primary Care Provider] - <Ronaldo Venegas DO - Last Filed: 07/08/20 07:21> [facility] Esther[facility] Attestation: I was immediately available in the department for consultation. This documentation has been reviewed and I agree with assessment and plan. Supervised by Ronaldo Venegas DO
[2020-07-07] MEDS: KETOROLAC 60 MG/2 ML VIAL IM (13:34)
[2020-07-07] MEDS: LIDOCAINE VISCOUS 2% 15 ML SOLUTION PO (13:35)
[2020-07-07] MEDS: ONDANSETRON 4 MG ODT SL (13:45)
[2020-07-07] MEDS: predniSONE 20 MG TABLET 60 MG PO (13:45)
--- NOTE | 2020-07-07 13:54 | PC.NURSE ---
Girlfriend reports red rash to front of neck. Pt also has been rubbing neck/throat area due to pain.
[2020-07-07 14:07] VITALS: BP 152/95; PULSE 65; RESP 14; O2SAT 100
== END 2020-07-07 14:48 | disposition home or self-care (01) ==
PROVIDERS: Emergency Provider Nurse Practitioner Family; PCP Family Medicine
DX: T63.441A Toxic effect of venom of bees, accidental (unintentional), initial encounter (principal); J02.9 Acute pharyngitis, unspecified
CPT/HCPCS: 96372; 99283; J1885

== ENCOUNTER → 2020-11-14 12:16 | Outpatient (CLI) | payer OTHER, MEDICAID, SELFPAY ==
--- NOTE | 2020-11-14 | DI.RAD.S_ITS ---
PROCEDURE: XR KNEE RT 3V INDICATIONS: Right knee pain. TECHNIQUE: 3 views of the knee were acquired. COMPARISON: Located Within [facility], , XR KNEE RT 3V, 04/27/2020, 15:08. FINDINGS: Bones: No fractures or dislocations. No suspicious bony lesions. Scattered degenerative subchondral sclerosis and spurring. Mild narrowing of the medial joint space Soft tissues: No joint effusion. No suspicious soft tissue calcifications. IMPRESSION: Mild right knee joint degeneration, grossly unchanged. Dictated by: Dae Osuna M.D. on 11/14/2020 at 13:24 Approved by: Dae Osuna M.D. on 11/14/2020 at 13:29
== END ==
PROVIDERS: PCP Family Medicine; Referring Provider Family Medicine; Visit Provider Family Medicine
DX: M25.561 Pain in right knee (principal); M17.11 Unilateral primary osteoarthritis, right knee
CPT/HCPCS: 73562

== ENCOUNTER 2021-01-29 07:30 | Outpatient (RCR) | payer OTHER, MEDICAID, SELFPAY ==
--- NOTE | 2020-12-25 15:05 | PT.OIE ---
Current Diagnoses Pain in right knee (12/25/20) Past Medical History (Last Reviewed 07/07/20 @ 16:13 by DANIEL Kemp) Anxiety Concussion Difficult airway for intubation Generalized headaches GERD (gastroesophageal reflux disease) Hand fracture Head trauma (~10/04/18) Hearing impaired Jaw fracture (~2006) Numbness AVILA (obstructive sleep apnea) Tear of left glenoid labrum Past Surgical History (Last Reviewed 07/07/20 @ 16:13 by DANIEL Kemp) Hx of cervical discectomy (02/13/18) Visit Care Team Role Provider Type ANDREA Pinto Attending Provider Advanced Health Program Analyst Family Provider Primary Care Provider Referring Provider Specialty: [facility] Address: [address] [place] [address] [place], [facility] Email: [email or web address] Physical Therapy Initial Evaluation PT-OP-A Visit Information Start: 12/13/20 07:50 Freq: Status: Active Protocol: Document 12/25/20 07:28 MB (Rec: 12/25/20 07:30 MB [id number]) Out-Patient Physical Therapy Visit Information Visit Information Visit Type Initial Evaluation Visit Note Ca, 24 visits Visit Start Time 07:28 Visit Stop Time 08:13 Total Visit Minutes 45 Visit Number 11/11 Evaluation Information Evaluation Date 12/25/20 PT-OP-B Current Condition Start: 12/13/20 07:50 Freq: Status: Active Protocol: Document 12/25/20 07:28 MB (Rec: 12/25/20 07:30 MB [id number]) Current Condition History of Current Condition Onset Date Long onset Current Complaints Total body pain everyday History of Current Condition 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 Over the years, his knees have bothered him. He feels worn out from his work. He tried running yesterday but it hurt his neck. Pt likes to swim but has not been able to due to the weather and the pool is closed. Pt rates right knee pain as 4-6/10. Pt likes to work out. He goes to a chiropractor and massage therapist for his neck. PMH: concussion and hearing impairment, right hand trauma and fracture, jaw fracture, left shoulder rotator cuff tear and surgery, neck injury and fracture, HTN, back pain, SOB from asthma. Pt is open to trying the upright bike. Pt wears old sneakers for work. Prior Treatments and Tests R knee x-ray 11/14/20: no changes PT in the past for neck and shoulder. PT went well Treatment Goals Patient/Caregiver Goals To decrease right knee pain PT-OP-C Subjective Start: 12/13/20 07:50 Freq: Status: Active Protocol: Document 12/25/20 07:28 MB (Rec: 12/25/20 07:52 MB [id number]) OP-PT Subjective Patient Comments Patient Comments See history of current condition Patient Reported Progress Worse Patient Questionnaires Lower Extremity Functional Scale LEFS Score 37 LEFS Impairment 40 to 59% Impaired (Score 32- 47) PT-OP-D Balance Start: 12/13/20 07:50 Freq: Status: Active Protocol: Document 12/25/20 07:28 MB (Rec: 12/25/20 14:55 MB [id number]) OP-PT Balance Assessment Standing Balance Standing Balance Comments B heavy index finger support against wall for B heel raises , 20 each leg Arriaga Fall Scale Copyright Permission PT-OP-G Mobility & Gait Start: 12/13/20 07:50 Freq: Status: Active Protocol: Document 12/25/20 07:28 MB (Rec: 12/25/20 14:55 MB [id number]) OP Gait Assessment Gait Gait Assistance Required: Independent Distance (Feet) 75 Able to Maintain Weight Bearing Status Yes During Gait Assistive Devices Assistive Device None Orthotic/Prosthetic Devices or Brace: No Gait Deviations General Gait Pattern Antalgic,Decreased Stride Length,Decreased Feet Clearance,Wide Based Gait Factors Limiting Gait Function Factors Limiting Gait Function Decreased Strength,Limited Range of Motion,Pain,Poor Balance Comments Gait Comments Pt presents with wide gait with B knee varus, antalgic pattern with decreased B heel strike, push off and step- length. Right knee is stiffer than the left and he presents with decreased B hip and knee flexion. His posture is sway back and his shoulders are thrown back with gait. Gait assessment with bare feet today. PT-OP-J Posture/Palpation/Skin Start: 12/13/20 07:50 Freq: Status: Active Protocol: Document 12/25/20 07:28 MB (Rec: 12/25/20 15:04 MB [id number]) Posture Evaluation Comments Posture Comments Bare feet: decreased cervical lordosis, decreased thoracic kyphosis, sway back, forward shoulders, left convexity thoracic spine, right iliac crest higher than the left, B foot supination, greater on the right, anterior tilt pelvis, hips forward and shoulders back, knees extended . PT-OP-K Range of Motion Start: 12/13/20 07:50 Freq: Status: Active Protocol: Document 12/25/20 07:28 MB (Rec: 12/25/20 15:04 MB [id number]) Hip Goniometric Range of Motion Hip ROM Limitations Comments Passive SLR: right 70 deg and left 60 deg PT-OP-M Strength Start: 12/13/20 07:50 Freq: Status: Active Protocol: Document 12/25/20 07:28 MB (Rec: 12/25/20 15:04 MB [id number]) Hip Strength Hip Manual Muscle Testing Left Flexion (L2) 5 Normal Abduction 3 Fair Right Flexion (L2) 5 Normal Abduction 3- Fair- Knee Strength Knee Manual Muscle Testing Left Flexion (S2) 5 Normal Extension (L3) 5 Normal Right Flexion (S2) 5 Normal Extension (L3) 5 Normal Ankle/Foot Strength Ankle and Foot Manual Muscle Testing Left Dorsiflexion (L4) 5 Normal Plantarflexion (S1) 5 Normal Inversion 3+ Fair+ Eversion (S1) 5 Normal Right Dorsiflexion (L4) 5 Normal Plantarflexion (S1) 5 Normal Inversion 4 Good Eversion (S1) 5 Normal Toe Strength Toe Manual Muscle Testing Left Great Toe Extension 4 Good Comments Mildly reduced left great toe extension Right Great Toe Comments Pt cannot tolerate MMT right great toe and he presents with reduced great toe extension compared to the left PT-OP-Q Treatments Start: 12/13/20 07:50 Freq: Status: Active Protocol: Document 12/25/20 07:28 MB (Rec: 12/25/20 14:54 MB [id number]) Therapeutic Exercises Supine Exercises 7 Supine Exercise Name Pelvic realignment exercises Side bilateral Equipment Used Ball Comments 5 reps all three exercises PT-OP-T Assessment and Plan Start: 12/13/20 07:50 Freq: Status: Active Protocol: Document 12/25/20 07:28 MB (Rec: 12/25/20 07:33 MB [id number]) Physical Therapy Assessment Rehab Potential Rehabilitation Potential Fair Evaluation Complexity Number of Personal Factors/Comorbidities 1-2 Number of Body Systems Impaired 1-2 Clinical Presentation at Evaluation Evolving Impairments Impairments Balance,Gait,Pain,Posture,ROM, Soft Tissue Mobility,Strength Other Impairments Personal factors include job requirements and pt has progressive disease (arthritis ) with body system affected being musculoskeletal. Goals Five Skilled Nursing Goal (LTG) Pt will present with an improved LEF score to reflect no more than 20% impairment by 02/24/21. LTG Duration 8 weeks Four Snack Steward Goal (LTG) Pt will perform progressive HEP with I including ROM, flexibility, strengthening and balance exercises to return to normal strength and function by 02/24/21. LTG Duration 8 weeks Three Skilled Nursing Goal (LTG) Pt will gait train at least 1600 feet in 6 minutes to reflect improved community ambulation by 02/24/21. LTG Duration 8 weeks Two Snack Steward Goal (LTG) Pt will perform 15 reps sit to stand without UE support in 30 sec to improve overall functional mobility and strength by 02/24/21. 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 He has also had a broken neck, jaw and shoulder. He has has back injuries. Pt presents with antalgic gait, LE weakness, postural changes including pelvic obliquities and impaired balance. Pt presents with back pain with some LE ROM and MMT today. Pt will benefit from PT to improve pelvic alignment, flexibility, core and LE strength, balance and for other self-care/body man training. Barriers include work requirements, multi-joint pain, increased body mass. Physical Therapy Plan Frequency and Duration Frequency of Treatment 2x/Week Duration of Treatment 8 weeks Plan of Care Start Date 12/25/20 Plan of Care End Date 02/25/21 Therapeutic Interventions Therapeutic Interventions Balance Training,Canalithic Repositioning,Gait Training, Home Exercise Program,Joint Mobilizations,Manual Therapy, Neuromuscular Re-education, Patient/Caregiver Education, Self-Care/Home Management,Soft Tissue Mobilization,Taping, Therapeutic Activities, Therapeutic Exercises Modalities Cold Pack/Ice Massage,Electric Stimulation,Hot Packs, Ultrasound Next Visit Focus/Plan Next Note Type Treatment Note Next Visit Plan Try upright bike and initiate flexibility exercises. Consider racquet ball STM.
--- NOTE | 2020-12-25 15:05 | PT.OPPOC ---
Physical, Occupational & Speech Therapy At [facility] Current Diagnoses Pain in right knee (12/25/20) Visit Care Team Role Provider Type ANDREA Pinto Attending Provider Advanced Tie Sawyer Family Provider Primary Care Provider Referring Provider Specialty: Family Practice Address: [address] [place] [address], [facility] [place], [address] Email: [email or web address] Plan Of Care PT-OP-T Assessment and Plan Start: 12/13/20 07:50 Freq: Status: Active Protocol: Document 12/25/20 07:28 MB (Rec: 12/25/20 07:33 MB [id number]) Physical Therapy Assessment Rehab Potential Rehabilitation Potential Fair Evaluation Complexity Number of Personal Factors/Comorbidities 1-2 Number of Body Systems Impaired 1-2 Clinical Presentation at Evaluation Evolving Impairments Impairments Balance,Gait,Pain,Posture,ROM, Soft Tissue Mobility,Strength Other Impairments Personal factors include job requirements and pt has progressive disease (arthritis ) with body system affected being musculoskeletal. Goals Five Care Home Goal (LTG) Pt will present with an improved LEF score to reflect no more than 20% impairment by 02/24/21. LTG Duration 8 weeks Four Care Home Goal (LTG) Pt will perform progressive HEP with I including ROM, flexibility, strengthening and balance exercises to return to normal strength and function by 02/24/21. LTG Duration 8 weeks Three Care Home Goal (LTG) Pt will gait train at least 1600 feet in 6 minutes to reflect improved community ambulation by 02/24/21. LTG Duration 8 weeks Two Care Home Goal (LTG) Pt will perform 15 reps sit to stand without UE support in 30 sec to improve overall functional mobility and strength by 02/24/21. 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 He has also had a broken neck, jaw and shoulder. He has has back injuries. Pt presents with antalgic gait, LE weakness, postural changes including pelvic obliquities and impaired balance. Pt presents with back pain with some LE ROM and MMT today. Pt will benefit from PT to improve pelvic alignment, flexibility, core and LE strength, balance and for other self-care/body and fender mechanic training. Barriers include work requirements, multi-joint pain, increased body mass. Physical Therapy Plan Frequency and Duration Frequency of Treatment 2x/Week Duration of Treatment 8 weeks Plan of Care Start Date 12/25/20 Plan of Care End Date 02/25/21 Therapeutic Interventions Therapeutic Interventions Balance Training,Canalithic Repositioning,Gait Training, Home Exercise Program,Joint Mobilizations,Manual Therapy, Neuromuscular Re-education, Patient/Caregiver Education, Self-Care/Home Management,Soft Tissue Mobilization,Taping, Therapeutic Activities, Therapeutic Exercises Modalities Cold Pack/Ice Massage,Electric Stimulation,Hot Packs, Ultrasound Next Visit Focus/Plan Next Note Type Treatment Note Next Visit Plan Try upright bike and initiate flexibility exercises. Consider racquet ball STM. Plan of Care Dates Plan of Care Start Date 12/25/20 Plan of Care End Date 02/25/21 Electronically Signed by: Shikha Kline PT 12/25/20 2842 Please Sign and Return: I have reviewed this Plan of Care and certify that the skilled therapy services above are required to meet the patient?s needs. Physician Signature Date Printed Name and Credentials Clinical Instructor Signature Printed Name and Credentials
--- NOTE | 2020-12-27 08:33 | PT.OTN ---
Current Diagnoses Pain in right knee (12/27/20) Physical Therapy Treatment Note PT-OP-A Visit Information Start: 12/13/20 07:50 Freq: Status: Active Protocol: Document 12/27/20 07:33 MB (Rec: 12/27/20 08:33 MB [id number]) Out-Patient Physical Therapy Visit Information Visit Information Visit Type Treatment Note Visit Note Ca, 24 visits Visit Start Time 07:33 Visit Stop Time 08:28 Total Visit Minutes 55 Visit Number 12/12 Precautions Precautions Try to stand on pt's R side d/ t hearing loss L ear PT-OP-B Current Condition Start: 12/13/20 07:50 Freq: Status: Active Protocol: Document 12/25/20 07:28 MB (Rec: 12/25/20 07:30 MB [id number]) Current Condition History of Current Condition Onset Date Long onset Current Complaints Total body pain everyday History of Current Condition 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 Over the years, his knees have bothered him. He feels worn out from his work. He tried running yesterday but it hurt his neck. Pt likes to swim but has not been able to due to the weather and the pool is closed. Pt rates right knee pain as 4-6/10. Pt likes to work out. He goes to a chiropractor and massage therapist for his neck. PMH: concussion and hearing impairment, right hand trauma and fracture, jaw fracture, left shoulder rotator cuff tear and surgery, neck injury and fracture, HTN, back pain, SOB from asthma. Pt is open to trying the upright bike. Pt wears old sneakers for work. Prior Treatments and Tests R knee x-ray 11/14/20: no changes PT in the past for neck and shoulder. PT went well Treatment Goals Patient/Caregiver Goals To decrease right knee pain PT-OP-C Subjective Start: 12/13/20 07:50 Freq: Status: Active Protocol: Document 12/27/20 07:33 MB (Rec: 12/27/20 08:33 MB [id number]) OP-PT Subjective Patient Comments Patient Comments I went to my new doctor the other day. We went over everything. Pt did not open exercises in folder. He is going to get a blood test to make sure it is not gout. PT-OP-D Balance Start: 12/13/20 07:50 Freq: Status: Active Protocol: Document 12/25/20 07:28 MB (Rec: 12/25/20 14:55 MB [id number]) OP-PT Balance Assessment Standing Balance Standing Balance Comments B heavy index finger support against wall for B heel raises , 20 each leg Arriaga Fall Scale Copyright Permission PT-OP-G Mobility & Gait Start: 12/13/20 07:50 Freq: Status: Active Protocol: Document 12/25/20 07:28 MB (Rec: 12/25/20 14:55 MB [id number]) OP Gait Assessment Gait Gait Assistance Required: Independent Distance (Feet) 75 Able to Maintain Weight Bearing Status Yes During Gait Assistive Devices Assistive Device None Orthotic/Prosthetic Devices or Brace: No Gait Deviations General Gait Pattern Antalgic,Decreased Stride Length,Decreased Feet Clearance,Wide Based Gait Factors Limiting Gait Function Factors Limiting Gait Function Decreased Strength,Limited Range of Motion,Pain,Poor Balance Comments Gait Comments Pt presents with wide gait with B knee varus, antalgic pattern with decreased B heel strike, push off and step- length. Right knee is stiffer than the left and he presents with decreased B hip and knee flexion. His posture is sway back and his shoulders are thrown back with gait. Gait assessment with bare feet today. PT-OP-J Posture/Palpation/Skin Start: 12/13/20 07:50 Freq: Status: Active Protocol: Document 12/25/20 07:28 MB (Rec: 12/25/20 15:04 MB [id number]) Posture Evaluation Comments Posture Comments Bare feet: decreased cervical lordosis, decreased thoracic kyphosis, sway back, forward shoulders, left convexity thoracic spine, right iliac crest higher than the left, B foot supination, greater on the right, anterior tilt pelvis, hips forward and shoulders back, knees extended . PT-OP-K Range of Motion Start: 12/13/20 07:50 Freq: Status: Active Protocol: Document 12/25/20 07:28 MB (Rec: 12/25/20 15:04 MB [id number]) Hip Goniometric Range of Motion Hip ROM Limitations Comments Passive SLR: right 70 deg and left 60 deg PT-OP-M Strength Start: 12/13/20 07:50 Freq: Status: Active Protocol: Document 12/25/20 07:28 MB (Rec: 12/25/20 15:04 MB [id number]) Hip Strength Hip Manual Muscle Testing Left Flexion (L2) 5 Normal Abduction 3 Fair Right Flexion (L2) 5 Normal Abduction 3- Fair- Knee Strength Knee Manual Muscle Testing Left Flexion (S2) 5 Normal Extension (L3) 5 Normal Right Flexion (S2) 5 Normal Extension (L3) 5 Normal Ankle/Foot Strength Ankle and Foot Manual Muscle Testing Left Dorsiflexion (L4) 5 Normal Plantarflexion (S1) 5 Normal Inversion 3+ Fair+ Eversion (S1) 5 Normal Right Dorsiflexion (L4) 5 Normal Plantarflexion (S1) 5 Normal Inversion 4 Good Eversion (S1) 5 Normal Toe Strength Toe Manual Muscle Testing Left Great Toe Extension 4 Good Comments Mildly reduced left great toe extension Right Great Toe Comments Pt cannot tolerate MMT right great toe and he presents with reduced great toe extension compared to the left PT-OP-Q Treatments Start: 12/13/20 07:50 Freq: Status: Active Protocol: Document 12/27/20 07:33 MB (Rec: 12/27/20 08:33 MB [id number]) Cardio Equipment Bicycle (Upright) Duration (Minutes) 12 Resistance 8 Seat Position 5 Therapeutic Exercises Supine Exercises 7 Supine Exercise Name Pelvic realignment exercises Side bilateral Equipment Used Ball Comments 5 reps all three exercises 6 Supine Exercise Name Norman stretch Side bilateral Comments Abdominal drawing in, pelvic tilt, 45 sec 5 Supine Exercise Name Hamstring stretch Side bilateral Equipment Used Martial art band Comments 30 APs with stretch Standing Exercises 8 Standing Exercise Name Racquet ball STM glutes, intrascapular muscles, infraspinatus, upper traps Side bilateral Equipment Used Racquet ball Comments TrP pressure and MWM for upper traps and infraspinatus Manual Therapy Treatment Other Other Manual Treatments KT black to support right knee : c strip under patella and B I strips medial and lateral knee PT-OP-T Assessment and Plan Start: 12/13/20 07:50 Freq: Status: Active Protocol: Document 12/27/20 07:33 MB (Rec: 12/27/20 08:33 MB [id number]) Physical Therapy Assessment Rehab Potential Rehabilitation Potential Fair Evaluation Complexity Number of Personal Factors/Comorbidities 1-2 Number of Body Systems Impaired 1-2 Clinical Presentation at Evaluation Evolving Impairments Impairments Balance,Gait,Pain,Posture,ROM, Soft Tissue Mobility,Strength Other Impairments Personal factors include job requirements and pt has progressive disease (arthritis ) with body system affected being musculoskeletal. Goals Five Link Machine Operator Goal (LTG) Pt will present with an improved LEF score to reflect no more than 20% impairment by 02/24/21. LTG Duration 8 weeks Four Link Machine Operator Goal (LTG) Pt will perform progressive HEP with I including ROM, flexibility, strengthening and balance exercises to return to normal strength and function by 02/24/21. LTG Duration 8 weeks Three Correction Goal (LTG) Pt will gait train at least 1600 feet in 6 minutes to reflect improved community ambulation by 02/24/21. LTG Duration 8 weeks Two Link Machine Operator Goal (LTG) Pt will perform 15 reps sit to stand without UE support in 30 sec to improve overall functional mobility and strength by 02/24/21. LTG Duration 8 weeks Assessment Summary Assessment Pt states that he does not have a place to exercise right now as he has gutted his house and is living in a camper. This may be a barrier to success with PT. PT provides exercises that he can do on his camper bed and against wall in his house and he verbalizes that he does have spaces for these. Pt asks about him taping his back and PT does not give a clear recommendation as he cannot physically tape his back himself. Physical Therapy Plan Frequency and Duration Frequency of Treatment 2x/Week Duration of Treatment 8 weeks Plan of Care Start Date 12/25/20 Plan of Care End Date 02/25/21 Therapeutic Interventions Therapeutic Interventions Balance Training,Canalithic Repositioning,Gait Training, Home Exercise Program,Joint Mobilizations,Manual Therapy, Neuromuscular Re-education, Patient/Caregiver Education, Self-Care/Home Management,Soft Tissue Mobilization,Taping, Therapeutic Activities, Therapeutic Exercises Modalities Cold Pack/Ice Massage,Electric Stimulation,Hot Packs, Ultrasound Next Visit Focus/Plan Next Note Type Treatment Note Next Visit Plan Progress upright bike resistance, hip rotator stretch, core progression before LE strengthening and manual work
--- NOTE | 2021-01-01 08:15 | PT.OTN ---
Current Diagnoses Pain in right knee (01/01/21) Physical Therapy Treatment Note PT-OP-A Visit Information Start: 12/13/20 07:50 Freq: Status: Active Protocol: Document 01/01/21 07:39 MB (Rec: 01/01/21 08:14 MB [id number]) Out-Patient Physical Therapy Visit Information Visit Information Visit Type Treatment Note Visit Note Ca, 24 visits Pt arrives late to appointment Visit Start Time 07:39 Visit Stop Time 08:15 Total Visit Minutes 36 Visit Number 01/09 Precautions Precautions Try to stand on pt's R side d/ t hearing loss L ear PT-OP-B Current Condition Start: 12/13/20 07:50 Freq: Status: Active Protocol: Document 12/25/20 07:28 MB (Rec: 12/25/20 07:30 MB [id number]) Current Condition History of Current Condition Onset Date Long onset Current Complaints Total body pain everyday History of Current Condition 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 Over the years, his knees have bothered him. He feels worn out from his work. He tried running yesterday but it hurt his neck. Pt likes to swim but has not been able to due to the weather and the pool is closed. Pt rates right knee pain as 4-6/10. Pt likes to work out. He goes to a chiropractor and massage therapist for his neck. PMH: concussion and hearing impairment, right hand trauma and fracture, jaw fracture, left shoulder rotator cuff tear and surgery, neck injury and fracture, HTN, back pain, SOB from asthma. Pt is open to trying the upright bike. Pt wears old sneakers for work. Prior Treatments and Tests R knee x-ray 11/14/20: no changes PT in the past for neck and shoulder. PT went well Treatment Goals Patient/Caregiver Goals To decrease right knee pain PT-OP-C Subjective Start: 12/13/20 07:50 Freq: Status: Active Protocol: Document 01/01/21 07:39 MB (Rec: 01/01/21 08:14 MB [id number]) OP-PT Subjective Patient Comments Patient Comments Yes. On the boat. When PT asks pt if he found a place to do his stretching. Pt liked the taping and would like to try it again today. PT-OP-D Balance Start: 12/13/20 07:50 Freq: Status: Active Protocol: Document 12/25/20 07:28 MB (Rec: 12/25/20 14:55 MB [id number]) OP-PT Balance Assessment Standing Balance Standing Balance Comments B heavy index finger support against wall for B heel raises , 20 each leg Arriaga Fall Scale Copyright Permission PT-OP-G Mobility & Gait Start: 12/13/20 07:50 Freq: Status: Active Protocol: Document 12/25/20 07:28 MB (Rec: 12/25/20 14:55 MB [id number]) OP Gait Assessment Gait Gait Assistance Required: Independent Distance (Feet) 75 Able to Maintain Weight Bearing Status Yes During Gait Assistive Devices Assistive Device None Orthotic/Prosthetic Devices or Brace: No Gait Deviations General Gait Pattern Antalgic,Decreased Stride Length,Decreased Feet Clearance,Wide Based Gait Factors Limiting Gait Function Factors Limiting Gait Function Decreased Strength,Limited Range of Motion,Pain,Poor Balance Comments Gait Comments Pt presents with wide gait with B knee varus, antalgic pattern with decreased B heel strike, push off and step- length. Right knee is stiffer than the left and he presents with decreased B hip and knee flexion. His posture is sway back and his shoulders are thrown back with gait. Gait assessment with bare feet today. PT-OP-J Posture/Palpation/Skin Start: 12/13/20 07:50 Freq: Status: Active Protocol: Document 12/25/20 07:28 MB (Rec: 12/25/20 15:04 MB [id number]) Posture Evaluation Comments Posture Comments Bare feet: decreased cervical lordosis, decreased thoracic kyphosis, sway back, forward shoulders, left convexity thoracic spine, right iliac crest higher than the left, B foot supination, greater on the right, anterior tilt pelvis, hips forward and shoulders back, knees extended . PT-OP-K Range of Motion Start: 12/13/20 07:50 Freq: Status: Active Protocol: Document 12/25/20 07:28 MB (Rec: 12/25/20 15:04 MB [id number]) Hip Goniometric Range of Motion Hip ROM Limitations Comments Passive SLR: right 70 deg and left 60 deg PT-OP-M Strength Start: 12/13/20 07:50 Freq: Status: Active Protocol: Document 12/25/20 07:28 MB (Rec: 12/25/20 15:04 MB [id number]) Hip Strength Hip Manual Muscle Testing Left Flexion (L2) 5 Normal Abduction 3 Fair Right Flexion (L2) 5 Normal Abduction 3- Fair- Knee Strength Knee Manual Muscle Testing Left Flexion (S2) 5 Normal Extension (L3) 5 Normal Right Flexion (S2) 5 Normal Extension (L3) 5 Normal Ankle/Foot Strength Ankle and Foot Manual Muscle Testing Left Dorsiflexion (L4) 5 Normal Plantarflexion (S1) 5 Normal Inversion 3+ Fair+ Eversion (S1) 5 Normal Right Dorsiflexion (L4) 5 Normal Plantarflexion (S1) 5 Normal Inversion 4 Good Eversion (S1) 5 Normal Toe Strength Toe Manual Muscle Testing Left Great Toe Extension 4 Good Comments Mildly reduced left great toe extension Right Great Toe Comments Pt cannot tolerate MMT right great toe and he presents with reduced great toe extension compared to the left PT-OP-Q Treatments Start: 12/13/20 07:50 Freq: Status: Active Protocol: Document 01/01/21 07:39 MB (Rec: 01/01/21 08:14 MB [id number]) Cardio Equipment Bicycle (Upright) Duration (Minutes) 10 Resistance 10 Seat Position 5 Therapeutic Exercises Supine Exercises 7 Supine Exercise Name Pelvic realignment exercises Side bilateral Equipment Used Ball Comments 5 reps all three exercises, 3 sec hold 6 Supine Exercise Name Norman stretch Side bilateral Comments Abdominal drawing in, pelvic tilt, 45 sec 5 Supine Exercise Name Hamstring stretch Side bilateral Equipment Used No band, hands behind thigh Comments 30 APs with stretch 4 Supine Exercise Name Hip rotator stretch Side bilateral Comments 30 sec each side 3 Supine Exercise Name Abdominal drawing in Comments Knees bent, spine flat and pelvic tilt, performed before Norman stretch Manual Therapy Treatment Other Other Manual Treatments KT black to support right knee : c strip under patella and B I strips medial and lateral knee MWM right vastus lateralis with PT providing TrP pressure and pt performing active HS right leg, also over patellar tendon. MWM right TFL and pt performing active ER/IR leg PT-OP-T Assessment and Plan Start: 12/13/20 07:50 Freq: Status: Active Protocol: Document 01/01/21 07:39 MB (Rec: 01/01/21 08:14 MB [id number]) Physical Therapy Assessment Rehab Potential Rehabilitation Potential Fair Evaluation Complexity Number of Personal Factors/Comorbidities 1-2 Number of Body Systems Impaired 1-2 Clinical Presentation at Evaluation Evolving Impairments Impairments Balance,Gait,Pain,Posture,ROM, Soft Tissue Mobility,Strength Other Impairments Personal factors include job requirements and pt has progressive disease (arthritis ) with body system affected being musculoskeletal. Goals Five Senior Care Goal (LTG) Pt will present with an improved LEF score to reflect no more than 20% impairment by 02/24/21. LTG Duration 8 weeks Four Physical Fitness Teacher Goal (LTG) Pt will perform progressive HEP with I including ROM, flexibility, strengthening and balance exercises to return to normal strength and function by 02/24/21. LTG Duration 8 weeks Three Senior Care Goal (LTG) Pt will gait train at least 1600 feet in 6 minutes to reflect improved community ambulation by 02/24/21. LTG Duration 8 weeks Two Senior Care Goal (LTG) Pt will perform 15 reps sit to stand without UE support in 30 sec to improve overall functional mobility and strength by 02/24/21. LTG Duration 8 weeks Assessment Summary Assessment Pt arrives late to appointment and he did not perform exercises much at home. These are barriers to progress with PT. Reviewed exercises today and revised hamstring stretch and hip rotator stretch. Physical Therapy Plan Frequency and Duration Frequency of Treatment 2x/Week Duration of Treatment 8 weeks Plan of Care Start Date 12/25/20 Plan of Care End Date 02/25/21 Therapeutic Interventions Therapeutic Interventions Balance Training,Canalithic Repositioning,Gait Training, Home Exercise Program,Joint Mobilizations,Manual Therapy, Neuromuscular Re-education, Patient/Caregiver Education, Self-Care/Home Management,Soft Tissue Mobilization,Taping, Therapeutic Activities, Therapeutic Exercises Modalities Cold Pack/Ice Massage,Electric Stimulation,Hot Packs, Ultrasound Next Visit Focus/Plan Next Note Type Treatment Note Next Visit Plan Core progression before LE strengthening and manual work
--- NOTE | 2021-01-03 08:23 | PT.OTN ---
Current Diagnoses Pain in right knee (01/03/21) Physical Therapy Treatment Note PT-OP-A Visit Information Start: 12/13/20 07:50 Freq: Status: Active Protocol: Document 01/03/21 07:35 SP (Rec: 01/03/21 08:57 SP [id number]) Out-Patient Physical Therapy Visit Information Visit Information Visit Type Treatment Note Visit Note Ca, 24 visits Pt arrives 5 min late to appointment Visit Start Time 07:35 Visit Stop Time 08:23 Total Visit Minutes 48 Visit Number 02/09 Number of AUTO MECHANIC SUPERVISOR Visits 1 PT-OP-B Current Condition Start: 12/13/20 07:50 Freq: Status: Active Protocol: Document 12/25/20 07:28 MB (Rec: 12/25/20 07:30 MB [id number]) Current Condition History of Current Condition Onset Date Long onset Current Complaints Total body pain everyday History of Current Condition 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 Over the years, his knees have bothered him. He feels worn out from his work. He tried running yesterday but it hurt his neck. Pt likes to swim but has not been able to due to the weather and the pool is closed. Pt rates right knee pain as 4-6/10. Pt likes to work out. He goes to a chiropractor and massage therapist for his neck. PMH: concussion and hearing impairment, right hand trauma and fracture, jaw fracture, left shoulder rotator cuff tear and surgery, neck injury and fracture, HTN, back pain, SOB from asthma. Pt is open to trying the upright bike. Pt wears old sneakers for work. Prior Treatments and Tests R knee x-ray 11/14/20: no changes PT in the past for neck and shoulder. PT went well Treatment Goals Patient/Caregiver Goals To decrease right knee pain PT-OP-C Subjective Start: 12/13/20 07:50 Freq: Status: Active Protocol: Document 01/03/21 07:35 SP (Rec: 01/03/21 08:57 SP [id number]) OP-PT Subjective Patient Comments Patient Comments Pt stated doing well, not doing exercises due to renovating his house. PT-OP-D Balance Start: 12/13/20 07:50 Freq: Status: Active Protocol: Document 12/25/20 07:28 MB (Rec: 12/25/20 14:55 MB [id number]) OP-PT Balance Assessment Standing Balance Standing Balance Comments B heavy index finger support against wall for B heel raises , 20 each leg Arriaga Fall Scale Copyright Permission PT-OP-G Mobility & Gait Start: 12/13/20 07:50 Freq: Status: Active Protocol: Document 12/25/20 07:28 MB (Rec: 12/25/20 14:55 MB [id number]) OP Gait Assessment Gait Gait Assistance Required: Independent Distance (Feet) 75 Able to Maintain Weight Bearing Status Yes During Gait Assistive Devices Assistive Device None Orthotic/Prosthetic Devices or Brace: No Gait Deviations General Gait Pattern Antalgic,Decreased Stride Length,Decreased Feet Clearance,Wide Based Gait Factors Limiting Gait Function Factors Limiting Gait Function Decreased Strength,Limited Range of Motion,Pain,Poor Balance Comments Gait Comments Pt presents with wide gait with B knee varus, antalgic pattern with decreased B heel strike, push off and step- length. Right knee is stiffer than the left and he presents with decreased B hip and knee flexion. His posture is sway back and his shoulders are thrown back with gait. Gait assessment with bare feet today. PT-OP-J Posture/Palpation/Skin Start: 12/13/20 07:50 Freq: Status: Active Protocol: Document 12/25/20 07:28 MB (Rec: 12/25/20 15:04 MB [id number]) Posture Evaluation Comments Posture Comments Bare feet: decreased cervical lordosis, decreased thoracic kyphosis, sway back, forward shoulders, left convexity thoracic spine, right iliac crest higher than the left, B foot supination, greater on the right, anterior tilt pelvis, hips forward and shoulders back, knees extended . PT-OP-K Range of Motion Start: 12/13/20 07:50 Freq: Status: Active Protocol: Document 12/25/20 07:28 MB (Rec: 12/25/20 15:04 MB [id number]) Hip Goniometric Range of Motion Hip ROM Limitations Comments Passive SLR: right 70 deg and left 60 deg PT-OP-M Strength Start: 12/13/20 07:50 Freq: Status: Active Protocol: Document 12/25/20 07:28 MB (Rec: 12/25/20 15:04 MB [id number]) Hip Strength Hip Manual Muscle Testing Left Flexion (L2) 5 Normal Abduction 3 Fair Right Flexion (L2) 5 Normal Abduction 3- Fair- Knee Strength Knee Manual Muscle Testing Left Flexion (S2) 5 Normal Extension (L3) 5 Normal Right Flexion (S2) 5 Normal Extension (L3) 5 Normal Ankle/Foot Strength Ankle and Foot Manual Muscle Testing Left Dorsiflexion (L4) 5 Normal Plantarflexion (S1) 5 Normal Inversion 3+ Fair+ Eversion (S1) 5 Normal Right Dorsiflexion (L4) 5 Normal Plantarflexion (S1) 5 Normal Inversion 4 Good Eversion (S1) 5 Normal Toe Strength Toe Manual Muscle Testing Left Great Toe Extension 4 Good Comments Mildly reduced left great toe extension Right Great Toe Comments Pt cannot tolerate MMT right great toe and he presents with reduced great toe extension compared to the left PT-OP-Q Treatments Start: 12/13/20 07:50 Freq: Status: Active Protocol: Document 01/03/21 07:35 SP (Rec: 01/03/21 08:57 SP [id number]) Cardio Equipment Bicycle (Upright) Duration (Minutes) 8 Resistance 10 Seat Position 5 Therapeutic Exercises Supine Exercises 8 Supine Exercise Name glut bridge hip abd TB Resistance #3 Reps/Minutes 2x10 Comments cued TA and posterior chain facilitation- no pain 7 Supine Exercise Name Pelvic realignment exercises Side bilateral Equipment Used Ball Comments 5 reps all three exercises, 3 sec hold Sitting Exercises 3 Sitting Exercise Name QL stretch Side bilateral Reps/Minutes 30 Comments See hand out for set up and form Standing Exercises 7 Standing Exercise Name HS (hip hinge), hip flexor stretch (lunge) Side bilateral Reps/Minutes 30 x2 Comments cued stratight CS chin nod/ LS PPT & TA back alignment 6 Standing Exercise Name hip hinge squat mechanics Resistance AROM then 10 # yoga vital ball Equipment Used dowel, chair Reps/Minutes x5 each Comments cued PPT, chin nod but CS ext neutral, trunk lengthened, knees w/behind toe Self-Care/Home Management Treatment Education Patient Education Body Mechanics,Home Exercise Program,Joint Protection,Pain Management,Posture,Safety Other Education Extra time spent education on balance of stretching/ flexibility of LE and proper body mechanics for LS, CS and knee over recruitment during his day with how to give longevitiy to his body. PT-OP-T Assessment and Plan Start: 12/13/20 07:50 Freq: Status: Active Protocol: Document 01/03/21 07:35 SP (Rec: 01/03/21 08:57 SP [id number]) Physical Therapy Assessment Goals Five Chcf Goal (LTG) Pt will present with an improved LEF score to reflect no more than 20% impairment by 02/24/21. LTG Duration 8 weeks Four Issuing Operator Goal (LTG) Pt will perform progressive HEP with I including ROM, flexibility, strengthening and balance exercises to return to normal strength and function by 02/24/21. 01/03/21: tyrese and HS stretch , pelvic realignment ex, bridge w/ hip abd TB, postural alignment TA and CS neutral hip hinge/squat eccentric tap, band walk, bridge hip abd TB, ball roll sundar cat. LTG Duration 8 weeks Three Chcf Goal (LTG) Pt will gait train at least 1600 feet in 6 minutes to reflect improved community ambulation by 02/24/21. LTG Duration 8 weeks Two Chcf Goal (LTG) Pt will perform 15 reps sit to stand without UE support in 30 sec to improve overall functional mobility and strength by 02/24/21. LTG Duration 8 weeks One Impairment NO HEP in place Issuing Operator Goal (LTG) Patient will perform HEP independent and safe. LTG Duration 3 wks. (Goal reached) Assessment Summary Assessment Pt arrived to appt late, feels good after leaving PT txs but reports with working 8am- 8pm is not going to be able to perform HEP at home probably just here. Tx today reviewed supine pelv relign for am pre mobility, added bridge w/ hip abd TB good TA back alignment glut/ hip abd facilitation, discussed stretching supine at home beginning/ end of day. Added how apply LE and core strengthening activities learn in PT at work and walking dog w/ band walk and hip hinge squat mechanics with proper back and knee alignment with response of decreased pain and more muscle tiring in legs and core during tx today. Added standing hip flexor and HS stretches can perform during his day in standing and reported theses can incorporated in his day. See hand outs, give his copy next tx. Physical Therapy Plan Frequency and Duration Frequency of Treatment 2x/Week Duration of Treatment 8 weeks Plan of Care Start Date 12/25/20 Plan of Care End Date 02/25/21 Therapeutic Interventions Therapeutic Interventions Balance Training,Canalithic Repositioning,Gait Training, Home Exercise Program,Joint Mobilizations,Manual Therapy, Neuromuscular Re-education, Patient/Caregiver Education, Self-Care/Home Management,Soft Tissue Mobilization,Taping, Therapeutic Activities, Therapeutic Exercises Modalities Cold Pack/Ice Massage,Electric Stimulation,Hot Packs, Ultrasound Next Visit Focus/Plan Next Note Type Treatment Note Next Visit Plan Assess response to band walk, squat mechanics, stand stretching. Next tx review his form with foam rolling TS/ LEs for self application for safety and continue TA with mechanics to decrease LS/ CS extensors over recruitment and posterior chain and hip abd R LE faciltation. Continue per PT POC: Core progression before LE strengthening and manual work
--- NOTE | 2021-01-03 08:23 | PT.OTN ---
Current Diagnoses Pain in right knee (01/03/21) Physical Therapy Treatment Note PT-OP-A Visit Information Start: 12/13/20 07:50 Freq: Status: Active Protocol: Document 01/03/21 07:35 SP (Rec: 01/03/21 08:57 SP [id number]) Out-Patient Physical Therapy Visit Information Visit Information Visit Type Treatment Note Visit Note Ca, 24 visits Pt arrives 5 min late to appointment Visit Start Time 07:35 Visit Stop Time 08:23 Total Visit Minutes 48 Visit Number 02/09 Number of INDUSTRIAL ENG Visits 1 PT-OP-B Current Condition Start: 12/13/20 07:50 Freq: Status: Active Protocol: Document 12/25/20 07:28 MB (Rec: 12/25/20 07:30 MB [id number]) Current Condition History of Current Condition Onset Date Long onset Current Complaints Total body pain everyday History of Current Condition 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 Over the years, his knees have bothered him. He feels worn out from his work. He tried running yesterday but it hurt his neck. Pt likes to swim but has not been able to due to the weather and the pool is closed. Pt rates right knee pain as 4-6/10. Pt likes to work out. He goes to a chiropractor and massage therapist for his neck. PMH: concussion and hearing impairment, right hand trauma and fracture, jaw fracture, left shoulder rotator cuff tear and surgery, neck injury and fracture, HTN, back pain, SOB from asthma. Pt is open to trying the upright bike. Pt wears old sneakers for work. Prior Treatments and Tests R knee x-ray 11/14/20: no changes PT in the past for neck and shoulder. PT went well Treatment Goals Patient/Caregiver Goals To decrease right knee pain PT-OP-C Subjective Start: 12/13/20 07:50 Freq: Status: Active Protocol: Document 01/03/21 07:35 SP (Rec: 01/03/21 08:57 SP [id number]) OP-PT Subjective Patient Comments Patient Comments Pt stated doing well, not doing exercises due to renovating his house. PT-OP-D Balance Start: 12/13/20 07:50 Freq: Status: Active Protocol: Document 12/25/20 07:28 MB (Rec: 12/25/20 14:55 MB [id number]) OP-PT Balance Assessment Standing Balance Standing Balance Comments B heavy index finger support against wall for B heel raises , 20 each leg Arriaga Fall Scale Copyright Permission PT-OP-G Mobility & Gait Start: 12/13/20 07:50 Freq: Status: Active Protocol: Document 12/25/20 07:28 MB (Rec: 12/25/20 14:55 MB [id number]) OP Gait Assessment Gait Gait Assistance Required: Independent Distance (Feet) 75 Able to Maintain Weight Bearing Status Yes During Gait Assistive Devices Assistive Device None Orthotic/Prosthetic Devices or Brace: No Gait Deviations General Gait Pattern Antalgic,Decreased Stride Length,Decreased Feet Clearance,Wide Based Gait Factors Limiting Gait Function Factors Limiting Gait Function Decreased Strength,Limited Range of Motion,Pain,Poor Balance Comments Gait Comments Pt presents with wide gait with B knee varus, antalgic pattern with decreased B heel strike, push off and step- length. Right knee is stiffer than the left and he presents with decreased B hip and knee flexion. His posture is sway back and his shoulders are thrown back with gait. Gait assessment with bare feet today. PT-OP-J Posture/Palpation/Skin Start: 12/13/20 07:50 Freq: Status: Active Protocol: Document 12/25/20 07:28 MB (Rec: 12/25/20 15:04 MB [id number]) Posture Evaluation Comments Posture Comments Bare feet: decreased cervical lordosis, decreased thoracic kyphosis, sway back, forward shoulders, left convexity thoracic spine, right iliac crest higher than the left, B foot supination, greater on the right, anterior tilt pelvis, hips forward and shoulders back, knees extended . PT-OP-K Range of Motion Start: 12/13/20 07:50 Freq: Status: Active Protocol: Document 12/25/20 07:28 MB (Rec: 12/25/20 15:04 MB [id number]) Hip Goniometric Range of Motion Hip ROM Limitations Comments Passive SLR: right 70 deg and left 60 deg PT-OP-M Strength Start: 12/13/20 07:50 Freq: Status: Active Protocol: Document 12/25/20 07:28 MB (Rec: 12/25/20 15:04 MB [id number]) Hip Strength Hip Manual Muscle Testing Left Flexion (L2) 5 Normal Abduction 3 Fair Right Flexion (L2) 5 Normal Abduction 3- Fair- Knee Strength Knee Manual Muscle Testing Left Flexion (S2) 5 Normal Extension (L3) 5 Normal Right Flexion (S2) 5 Normal Extension (L3) 5 Normal Ankle/Foot Strength Ankle and Foot Manual Muscle Testing Left Dorsiflexion (L4) 5 Normal Plantarflexion (S1) 5 Normal Inversion 3+ Fair+ Eversion (S1) 5 Normal Right Dorsiflexion (L4) 5 Normal Plantarflexion (S1) 5 Normal Inversion 4 Good Eversion (S1) 5 Normal Toe Strength Toe Manual Muscle Testing Left Great Toe Extension 4 Good Comments Mildly reduced left great toe extension Right Great Toe Comments Pt cannot tolerate MMT right great toe and he presents with reduced great toe extension compared to the left PT-OP-Q Treatments Start: 12/13/20 07:50 Freq: Status: Active Protocol: Document 01/03/21 07:35 SP (Rec: 01/03/21 08:57 SP [id number]) Cardio Equipment Bicycle (Upright) Duration (Minutes) 8 Resistance 10 Seat Position 5 Therapeutic Exercises Supine Exercises 8 Supine Exercise Name glut bridge hip abd TB Resistance #3 Reps/Minutes 2x10 Comments cued TA and posterior chain facilitation- no pain 7 Supine Exercise Name Pelvic realignment exercises Side bilateral Equipment Used Ball Comments 5 reps all three exercises, 3 sec hold Standing Exercises 7 Standing Exercise Name HS (hip hinge), hip flexor stretch (lunge) Side bilateral Reps/Minutes 30 x2 Comments cued stratight CS chin nod/ LS PPT & TA back alignment 6 Standing Exercise Name hip hinge squat mechanics Resistance AROM then 10 # yoga vital ball Equipment Used dowel, chair Reps/Minutes x5 each Comments cued PPT, chin nod but CS ext neutral, trunk lengthened, knees w/behind toe Self-Care/Home Management Treatment Education Patient Education Body Mechanics,Home Exercise Program,Joint Protection,Pain Management,Posture,Safety Other Education Extra time spent education on balance of stretching/ flexibility of LE and proper body mechanics for LS, CS and knee over recruitment during his day with how to give longevitiy to his body. PT-OP-T Assessment and Plan Start: 12/13/20 07:50 Freq: Status: Active Protocol: Document 01/03/21 07:35 SP (Rec: 03/18/21 08:57 SP [id number]) Physical Therapy Assessment Goals Five Silk Snapper Goal (LTG) Pt will present with an improved LEF score to reflect no more than 20% impairment by 02/24/21. LTG Duration 8 weeks Four Silk Snapper Goal (LTG) Pt will perform progressive HEP with I including ROM, flexibility, strengthening and balance exercises to return to normal strength and function by 02/24/21. 01/03/21: tyrese and HS stretch , pelvic realignment ex, bridge w/ hip abd TB, postural alignment TA and CS neutral hip hinge/squat eccentric tap, band walk, bridge hip abd TB, ball roll sundar cat. LTG Duration 8 weeks Three Detention Goal (LTG) Pt will gait train at least 1600 feet in 6 minutes to reflect improved community ambulation by 02/24/21. LTG Duration 8 weeks Two Silk Snapper Goal (LTG) Pt will perform 15 reps sit to stand without UE support in 30 sec to improve overall functional mobility and strength by 02/24/21. LTG Duration 8 weeks One Impairment NO HEP in place Detention Goal (LTG) Patient will perform HEP independent and safe. LTG Duration 3 wks. (Goal reached) Assessment Summary Assessment Pt arrived to appt late, feels good after leaving PT txs but reports with working 8am- 8pm is not going to be able to perform HEP at home probably just here. Tx today reviewed supine pelv relign for am pre mobility, added bridge w/ hip abd TB good TA back alignment glut/ hip abd facilitation, discussed stretching supine at home beginning/ end of day. Added how apply LE and core strengthening activities learn in PT at work and walking dog w/ band walk and hip hinge squat mechanics with proper back and knee alignment with response of decreased pain and more muscle tiring in legs and core during tx today. Added standing hip flexor and HS stretches can perform during his day in standing and reported theses can incorporated in his day. See hand outs, give his copy next tx. Physical Therapy Plan Frequency and Duration Frequency of Treatment 2x/Week Duration of Treatment 8 weeks Plan of Care Start Date 12/25/20 Plan of Care End Date 02/25/21 Therapeutic Interventions Therapeutic Interventions Balance Training,Canalithic Repositioning,Gait Training, Home Exercise Program,Joint Mobilizations,Manual Therapy, Neuromuscular Re-education, Patient/Caregiver Education, Self-Care/Home Management,Soft Tissue Mobilization,Taping, Therapeutic Activities, Therapeutic Exercises Modalities Cold Pack/Ice Massage,Electric Stimulation,Hot Packs, Ultrasound Next Visit Focus/Plan Next Note Type Treatment Note Next Visit Plan Assess response to band walk, squat mechanics, stand stretching. Next tx review his form with foam rolling TS/ LEs for self application for safety and continue TA with mechanics to decrease LS/ CS extensors over recruitment and posterior chain and hip abd R LE faciltation. Continue per PT POC: Core progression before LE strengthening and manual work
--- NOTE | 2021-01-08 08:18 | PT.OTN ---
Current Diagnoses Pain in right knee (01/08/21) Physical Therapy Treatment Note PT-OP-A Visit Information Start: 12/13/20 07:50 Freq: Status: Active Protocol: Document 01/08/21 07:32 SP (Rec: 01/08/21 12:25 SP [id number]) Out-Patient Physical Therapy Visit Information Visit Information Visit Type Treatment Note Visit Note Ca, 24 visits Pt arrives 2 min late to appointment Visit Start Time 07:32 Visit Stop Time 08:18 Total Visit Minutes 47 Visit Number 03/11 Number of HUMAN RESOURCES SUPPORT SPECIALIST Visits 2 Precautions Precautions Try to stand on pt's R side d/ t hearing loss L ear PT-OP-B Current Condition Start: 12/13/20 07:50 Freq: Status: Active Protocol: Document 12/25/20 07:28 MB (Rec: 12/25/20 07:30 MB [id number]) Current Condition History of Current Condition Onset Date Long onset Current Complaints Total body pain everyday History of Current Condition 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 Over the years, his knees have bothered him. He feels worn out from his work. He tried running yesterday but it hurt his neck. Pt likes to swim but has not been able to due to the weather and the pool is closed. Pt rates right knee pain as 4-6/10. Pt likes to work out. He goes to a chiropractor and massage therapist for his neck. PMH: concussion and hearing impairment, right hand trauma and fracture, jaw fracture, left shoulder rotator cuff tear and surgery, neck injury and fracture, HTN, back pain, SOB from asthma. Pt is open to trying the upright bike. Pt wears old sneakers for work. Prior Treatments and Tests R knee x-ray 11/14/20: no changes PT in the past for neck and shoulder. PT went well Treatment Goals Patient/Caregiver Goals To decrease right knee pain PT-OP-C Subjective Start: 12/13/20 07:50 Freq: Status: Active Protocol: Document 01/08/21 07:32 SP (Rec: 01/08/21 12:25 SP [id number]) OP-PT Subjective Patient Comments Patient Comments Pt stated didn't do the exercises, recently crawling under house to relevel tone plus, feel getting little stronger knees sore but not pain . Pt responded well to last tx, LE felt worked out in a good way, muscle tiring. Pt stated is starting to incorporate stretching daily before working to be sure is ok during day. PT-OP-D Balance Start: 12/13/20 07:50 Freq: Status: Active Protocol: Document 12/25/20 07:28 MB (Rec: 12/25/20 14:55 MB [id number]) OP-PT Balance Assessment Standing Balance Standing Balance Comments B heavy index finger support against wall for B heel raises , 20 each leg Arriaga Fall Scale Copyright Permission PT-OP-G Mobility & Gait Start: 12/13/20 07:50 Freq: Status: Active Protocol: Document 12/25/20 07:28 MB (Rec: 12/25/20 14:55 MB [id number]) OP Gait Assessment Gait Gait Assistance Required: Independent Distance (Feet) 75 Able to Maintain Weight Bearing Status Yes During Gait Assistive Devices Assistive Device None Orthotic/Prosthetic Devices or Brace: No Gait Deviations General Gait Pattern Antalgic,Decreased Stride Length,Decreased Feet Clearance,Wide Based Gait Factors Limiting Gait Function Factors Limiting Gait Function Decreased Strength,Limited Range of Motion,Pain,Poor Balance Comments Gait Comments Pt presents with wide gait with B knee varus, antalgic pattern with decreased B heel strike, push off and step- length. Right knee is stiffer than the left and he presents with decreased B hip and knee flexion. His posture is sway back and his shoulders are thrown back with gait. Gait assessment with bare feet today. PT-OP-J Posture/Palpation/Skin Start: 12/13/20 07:50 Freq: Status: Active Protocol: Document 12/25/20 07:28 MB (Rec: 12/25/20 15:04 MB [id number]) Posture Evaluation Comments Posture Comments Bare feet: decreased cervical lordosis, decreased thoracic kyphosis, sway back, forward shoulders, left convexity thoracic spine, right iliac crest higher than the left, B foot supination, greater on the right, anterior tilt pelvis, hips forward and shoulders back, knees extended . PT-OP-K Range of Motion Start: 12/13/20 07:50 Freq: Status: Active Protocol: Document 12/25/20 07:28 MB (Rec: 12/25/20 15:04 MB [id number]) Hip Goniometric Range of Motion Hip ROM Limitations Comments Passive SLR: right 70 deg and left 60 deg PT-OP-M Strength Start: 12/13/20 07:50 Freq: Status: Active Protocol: Document 12/25/20 07:28 MB (Rec: 12/25/20 15:04 MB [id number]) Hip Strength Hip Manual Muscle Testing Left Flexion (L2) 5 Normal Abduction 3 Fair Right Flexion (L2) 5 Normal Abduction 3- Fair- Knee Strength Knee Manual Muscle Testing Left Flexion (S2) 5 Normal Extension (L3) 5 Normal Right Flexion (S2) 5 Normal Extension (L3) 5 Normal Ankle/Foot Strength Ankle and Foot Manual Muscle Testing Left Dorsiflexion (L4) 5 Normal Plantarflexion (S1) 5 Normal Inversion 3+ Fair+ Eversion (S1) 5 Normal Right Dorsiflexion (L4) 5 Normal Plantarflexion (S1) 5 Normal Inversion 4 Good Eversion (S1) 5 Normal Toe Strength Toe Manual Muscle Testing Left Great Toe Extension 4 Good Comments Mildly reduced left great toe extension Right Great Toe Comments Pt cannot tolerate MMT right great toe and he presents with reduced great toe extension compared to the left PT-OP-Q Treatments Start: 12/13/20 07:50 Freq: Status: Active Protocol: Document 01/08/21 07:32 SP (Rec: 01/08/21 12:25 SP [id number]) Cardio Equipment Bicycle (Upright) Duration (Minutes) 8 Resistance 10 Seat Position 5 Therapeutic Exercises Supine Exercises 9 Supine Exercise Name TS ext stretching Equipment Used over 55cm senegalese ball and foam roller Reps/Minutes 1 min Comments arms out side and next leg 8 Supine Exercise Name glut bridge hip abd TB Resistance GTB Reps/Minutes 2x10 Comments cued TA and posterior chain facilitation- no pain 7 Supine Exercise Name Pelvic realignment exercises Side bilateral Resistance AROM Equipment Used Ball Comments 5 reps all three exercises, 3 sec hold Prone Exercises 3 Prone Exercise Name scorpion LS rotation stretch Side bilateral Resistance AROM Reps/Minutes 20 x3 elbow plank Prone Exercise Name prone 2x 30 , side 15 R/30 L Side bilateral Comments cued core fac/ PPT alignment off knees easy- ok off feet Standing Exercises 9 Standing Exercise Name band walk- good hip abd/ core fac Resistance GTB> RTB Reps/Minutes 20 ft f/b/s lap each Comments cued tall posture, PPT, soft knee Other Exercises stretching HEP Other Exercise Name TS ext/roll, quad/hs/ITB/calf Side bilateral Resistance stand/supine/seated Equipment Used rail, foam roller, racquetball Reps/Minutes 10 min Comments cued slow pace movement, time tolerance, benefits Self-Care/Home Management Treatment Education Patient Education Body Mechanics,Home Exercise Program,Pain Management, Posture Other Education Reeducation on balance of stretching/ flexibility of LE and proper body mechanics for LS, CS and performance during his day with how to give longevitiy to his body. PT-OP-T Assessment and Plan Start: 12/13/20 07:50 Freq: Status: Active Protocol: Document 01/08/21 07:32 SP (Rec: 01/08/21 12:25 SP [id number]) Physical Therapy Assessment Goals Five Territory Sales Manager Goal (LTG) Pt will present with an improved LEF score to reflect no more than 20% impairment by 02/24/21. LTG Duration 8 weeks Four Retirement Goal (LTG) Pt will perform progressive HEP with I including ROM, flexibility, strengthening and balance exercises to return to normal strength and function by 02/24/21. 01/08/21: tyrese and HS stretch , pelvic realignment ex, bridge w/ hip abd TB, postural alignment TA and CS neutral hip hinge/squat eccentric tap, band walk, bridge hip abd TB, ball roll sundar cat, elbow plank forrward/ side, prone scorpion LS rotational stretch , TS/ LE rolling review. LTG Duration 8 weeks Three Retirement Goal (LTG) Pt will gait train at least 1600 feet in 6 minutes to reflect improved community ambulation by 02/24/21. LTG Duration 8 weeks Two Territory Sales Manager Goal (LTG) Pt will perform 15 reps sit to stand without UE support in 30 sec to improve overall functional mobility and strength by 02/24/21. LTG Duration 8 weeks One Impairment NO HEP in place Territory Sales Manager Goal (LTG) Patient will perform HEP independent and safe. LTG Duration 3 wks. (Goal reached) Assessment Summary Assessment Pt responded well to ther ex, focused on flexibility stretch / foam roll and core strengthening stabilization with proper alignment that can incorporated in his work day. Pt is seeing improvements but still states isn't doing exercises instructed due to busy schedule 8-8pm will be better when job the job is done although is incorporating stretching and educating his workers for back/ leg health. Physical Therapy Plan Frequency and Duration Frequency of Treatment 2x/Week Duration of Treatment 8 weeks Plan of Care Start Date 12/25/20 Plan of Care End Date 02/25/21 Therapeutic Interventions Therapeutic Interventions Balance Training,Canalithic Repositioning,Gait Training, Home Exercise Program,Joint Mobilizations,Manual Therapy, Neuromuscular Re-education, Patient/Caregiver Education, Self-Care/Home Management,Soft Tissue Mobilization,Taping, Therapeutic Activities, Therapeutic Exercises Modalities Cold Pack/Ice Massage,Electric Stimulation,Hot Packs, Ultrasound Next Visit Focus/Plan Next Note Type Treatment Note Next Visit Plan Assess response to band walk, squat mechanics, stand stretching core plank, foam rolling. Continue TA with mechanics to decrease LS/ CS extensors over recruitment and posterior chain and hip abd R LE faciltation. Continue per PT POC: Core progression before LE strengthening and manual work
--- NOTE | 2021-01-10 08:12 | PT.OTN ---
Current Diagnoses Pain in right knee (01/10/21) Physical Therapy Treatment Note PT-OP-A Visit Information Start: 12/13/20 07:50 Freq: Status: Active Protocol: Document 01/10/21 07:32 MB (Rec: 01/10/21 08:11 MB [id number]) Out-Patient Physical Therapy Visit Information Visit Information Visit Type Treatment Note Visit Note Ca, 24 visits Pt arrives 3 minutes late to appointment Visit Start Time 07:33 Visit Stop Time 08:11 Total Visit Minutes 38 Visit Number 04/11 Precautions Precautions Try to stand on pt's R side d/ t hearing loss L ear PT-OP-B Current Condition Start: 12/13/20 07:50 Freq: Status: Active Protocol: Document 12/25/20 07:28 MB (Rec: 12/25/20 07:30 MB [id number]) Current Condition History of Current Condition Onset Date Long onset Current Complaints Total body pain everyday History of Current Condition 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 Over the years, his knees have bothered him. He feels worn out from his work. He tried running yesterday but it hurt his neck. Pt likes to swim but has not been able to due to the weather and the pool is closed. Pt rates right knee pain as 4-6/10. Pt likes to work out. He goes to a chiropractor and massage therapist for his neck. PMH: concussion and hearing impairment, right hand trauma and fracture, jaw fracture, left shoulder rotator cuff tear and surgery, neck injury and fracture, HTN, back pain, SOB from asthma. Pt is open to trying the upright bike. Pt wears old sneakers for work. Prior Treatments and Tests R knee x-ray 11/14/20: no changes PT in the past for neck and shoulder. 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 He anticipates dry walling over the weekend. PT-OP-D Balance Start: 12/13/20 07:50 Freq: Status: Active Protocol: Document 12/25/20 07:28 MB (Rec: 12/25/20 14:55 MB [id number]) OP-PT Balance Assessment Standing Balance Standing Balance Comments B heavy index finger support against wall for B heel raises , 20 each leg Arriaga Fall Scale Copyright Permission PT-OP-G Mobility & Gait Start: 12/13/20 07:50 Freq: Status: Active Protocol: Document 12/25/20 07:28 MB (Rec: 12/25/20 14:55 MB [id number]) OP Gait Assessment Gait Gait Assistance Required: Independent Distance (Feet) 75 Able to Maintain Weight Bearing Status Yes During Gait Assistive Devices Assistive Device None Orthotic/Prosthetic Devices or Brace: No Gait Deviations General Gait Pattern Antalgic,Decreased Stride Length,Decreased Feet Clearance,Wide Based Gait Factors Limiting Gait Function Factors Limiting Gait Function Decreased Strength,Limited Range of Motion,Pain,Poor Balance Comments Gait Comments Pt presents with wide gait with B knee varus, antalgic pattern with decreased B heel strike, push off and step- length. Right knee is stiffer than the left and he presents with decreased B hip and knee flexion. His posture is sway back and his shoulders are thrown back with gait. Gait assessment with bare feet today. PT-OP-J Posture/Palpation/Skin Start: 12/13/20 07:50 Freq: Status: Active Protocol: Document 12/25/20 07:28 MB (Rec: 12/25/20 15:04 MB [id number]) Posture Evaluation Comments Posture Comments Bare feet: decreased cervical lordosis, decreased thoracic kyphosis, sway back, forward shoulders, left convexity thoracic spine, right iliac crest higher than the left, B foot supination, greater on the right, anterior tilt pelvis, hips forward and shoulders back, knees extended . PT-OP-K Range of Motion Start: 12/13/20 07:50 Freq: Status: Active Protocol: Document 12/25/20 07:28 MB (Rec: 12/25/20 15:04 MB [id number]) Hip Goniometric Range of Motion Hip ROM Limitations Comments Passive SLR: right 70 deg and left 60 deg PT-OP-M Strength Start: 12/13/20 07:50 Freq: Status: Active Protocol: Document 12/25/20 07:28 MB (Rec: 12/25/20 15:04 MB [id number]) Hip Strength Hip Manual Muscle Testing Left Flexion (L2) 5 Normal Abduction 3 Fair Right Flexion (L2) 5 Normal Abduction 3- Fair- Knee Strength Knee Manual Muscle Testing Left Flexion (S2) 5 Normal Extension (L3) 5 Normal Right Flexion (S2) 5 Normal Extension (L3) 5 Normal Ankle/Foot Strength Ankle and Foot Manual Muscle Testing Left Dorsiflexion (L4) 5 Normal Plantarflexion (S1) 5 Normal Inversion 3+ Fair+ Eversion (S1) 5 Normal Right Dorsiflexion (L4) 5 Normal Plantarflexion (S1) 5 Normal Inversion 4 Good Eversion (S1) 5 Normal Toe Strength Toe Manual Muscle Testing Left Great Toe Extension 4 Good Comments Mildly reduced left great toe extension Right Great Toe Comments Pt cannot tolerate MMT right great toe and he presents with reduced great toe extension compared to the left PT-OP-Q Treatments Start: 12/13/20 07:50 Freq: Status: Active Protocol: Document 01/10/21 07:32 MB (Rec: 01/10/21 08:11 MB [id number]) Cardio Equipment Bicycle (Upright) Duration (Minutes) 10 Resistance 8-10 Seat Position 5 Therapeutic Exercises Supine Exercises Hamstring stretch Side bilateral Comments 30 sec hold B, AP Hip rotator stretch Side bilateral Comments 30 sec hold B Norman stretch Side bilateral Comments 30 sec hold, pelvic tilt, opposite leg lifted 8 Supine Exercise Name Glute bridge hip abd TB Resistance Level 3 band Comments Cues for TA, 2x10 reps 7 Supine Exercise Name Pelvic realignment exercises Side bilateral Equipment Used Ball Comments 5 reps all three exercises, three sec hold Sitting Exercises Therapy ball stretching Sitting Exercise Name Pect stretch, hamstring stretch Equipment Used 75 cm ball 3 Sitting Exercise Name QL stretch Side bilateral Comments 30 sec hold, cues for positioning 5 Sitting Exercise Name Hip rotator stretches Side bilateral Comments 30 sec B Standing Exercises 9 Standing Exercise Name Crab walking and backwards walking Resistance Level 3 band Comments 4 reps x 10 feet each PT-OP-T Assessment and Plan Start: 12/13/20 07:50 Freq: Status: Active Protocol: Document 01/10/21 07:32 MB (Rec: 01/10/21 08:11 MB [id number]) Physical Therapy Assessment Goals Five Senior Care Goal (LTG) Pt will present with an improved LEF score to reflect no more than 20% impairment by 02/24/21. LTG Duration 8 weeks Four Senior Care Goal (LTG) Pt will perform progressive HEP with I including ROM, flexibility, strengthening and balance exercises to return to normal strength and function by 02/24/21. 01/08/21: norman and HS stretch , pelvic realignment ex, bridge w/ hip abd TB, postural alignment TA and CS neutral hip hinge/squat eccentric tap, band walk, bridge hip abd TB, ball roll sundar cat, elbow plank forrward/ side, prone scorpion LS rotational stretch , TS/ LE rolling review. LTG Duration 8 weeks Three Client Executive Goal (LTG) Pt will gait train at least 1600 feet in 6 minutes to reflect improved community ambulation by 02/24/21. LTG Duration 8 weeks Two Client Executive Goal (LTG) Pt will perform 15 reps sit to stand without UE support in 30 sec to improve overall functional mobility and strength by 02/24/21. LTG Duration 8 weeks One Impairment NO HEP in place Client Executive Goal (LTG) Patient will perform HEP independent and safe. LTG Duration 3 wks. (Goal reached) Assessment Summary Assessment Pt con't to arrive late to appointments and report not doing PT exercises at home. These are ongoing barriers to PT as far as progression, improvement, pt's investment in PT. Progressed hip extension strengthening today, posterior capsule and multifidi stretch standing with head up and hands over mat. Con't progression of flexibility, strengthening and core. Physical Therapy Plan Frequency and Duration Frequency of Treatment 2x/Week Duration of Treatment 8 weeks Plan of Care Start Date 12/25/20 Plan of Care End Date 02/25/21 Therapeutic Interventions Therapeutic Interventions Balance Training,Canalithic Repositioning,Gait Training, Home Exercise Program,Joint Mobilizations,Manual Therapy, Neuromuscular Re-education, Patient/Caregiver Education, Self-Care/Home Management,Soft Tissue Mobilization,Taping, Therapeutic Activities, Therapeutic Exercises Modalities Cold Pack/Ice Massage,Electric Stimulation,Hot Packs, Ultrasound Next Visit Focus/Plan Next Note Type Treatment Note Next Visit Plan Continue TA with mechanics to decrease LS/ CS extensors over recruitment and posterior chain and hip abd R LE faciltation. Continue per PT POC: Core progression before LE strengthening and manual work
--- NOTE | 2021-01-15 08:13 | PT.OTN ---
Current Diagnoses Pain in right knee (01/15/21) Physical Therapy Treatment Note PT-OP-A Visit Information Start: 12/13/20 07:50 Freq: Status: Active Protocol: Document 01/15/21 07:32 MB (Rec: 01/15/21 08:07 MB [id number]) Out-Patient Physical Therapy Visit Information Visit Information Visit Type Treatment Note Visit Note Roby, 24 visits Visit Start Time 07:32 Visit Stop Time 08:12 Total Visit Minutes 40 Visit Number 05/11 Precautions Precautions Try to stand on pt's R side d/ t hearing loss L ear PT-OP-B Current Condition Start: 12/13/20 07:50 Freq: Status: Active Protocol: Document 12/25/20 07:28 MB (Rec: 12/25/20 07:30 MB [id number]) Current Condition History of Current Condition Onset Date Long onset Current Complaints Total body pain everyday History of Current Condition 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 Over the years, his knees have bothered him. He feels worn out from his work. He tried running yesterday but it hurt his neck. Pt likes to swim but has not been able to due to the weather and the pool is closed. Pt rates right knee pain as 4-6/10. Pt likes to work out. He goes to a chiropractor and massage therapist for his neck. PMH: concussion and hearing impairment, right hand trauma and fracture, jaw fracture, left shoulder rotator cuff tear and surgery, neck injury and fracture, HTN, back pain, SOB from asthma. Pt is open to trying the upright bike. Pt wears old sneakers for work. Prior Treatments and Tests R knee x-ray 11/14/20: no changes PT in the past for neck and shoulder. PT went well Treatment Goals Patient/Caregiver Goals To decrease right knee pain PT-OP-C Subjective Start: 12/13/20 07:50 Freq: Status: Active Protocol: Document 01/15/21 07:32 MB (Rec: 01/15/21 08:07 MB [id number]) OP-PT Subjective Patient Comments Patient Comments I'm feeling really good. PT-OP-D Balance Start: 12/13/20 07:50 Freq: Status: Active Protocol: Document 12/25/20 07:28 MB (Rec: 12/25/20 14:55 MB [id number]) OP-PT Balance Assessment Standing Balance Standing Balance Comments B heavy index finger support against wall for B heel raises , 20 each leg Arriaga Fall Scale Copyright Permission PT-OP-G Mobility & Gait Start: 12/13/20 07:50 Freq: Status: Active Protocol: Document 12/25/20 07:28 MB (Rec: 12/25/20 14:55 MB [id number]) OP Gait Assessment Gait Gait Assistance Required: Independent Distance (Feet) 75 Able to Maintain Weight Bearing Status Yes During Gait Assistive Devices Assistive Device None Orthotic/Prosthetic Devices or Brace: No Gait Deviations General Gait Pattern Antalgic,Decreased Stride Length,Decreased Feet Clearance,Wide Based Gait Factors Limiting Gait Function Factors Limiting Gait Function Decreased Strength,Limited Range of Motion,Pain,Poor Balance Comments Gait Comments Pt presents with wide gait with B knee varus, antalgic pattern with decreased B heel strike, push off and step- length. Right knee is stiffer than the left and he presents with decreased B hip and knee flexion. His posture is sway back and his shoulders are thrown back with gait. Gait assessment with bare feet today. PT-OP-J Posture/Palpation/Skin Start: 12/13/20 07:50 Freq: Status: Active Protocol: Document 12/25/20 07:28 MB (Rec: 12/25/20 15:04 MB [id number]) Posture Evaluation Comments Posture Comments Bare feet: decreased cervical lordosis, decreased thoracic kyphosis, sway back, forward shoulders, left convexity thoracic spine, right iliac crest higher than the left, B foot supination, greater on the right, anterior tilt pelvis, hips forward and shoulders back, knees extended . PT-OP-K Range of Motion Start: 12/13/20 07:50 Freq: Status: Active Protocol: Document 12/25/20 07:28 MB (Rec: 12/25/20 15:04 MB [id number]) Hip Goniometric Range of Motion Hip ROM Limitations Comments Passive SLR: right 70 deg and left 60 deg PT-OP-M Strength Start: 12/13/20 07:50 Freq: Status: Active Protocol: Document 12/25/20 07:28 MB (Rec: 12/25/20 15:04 MB [id number]) Hip Strength Hip Manual Muscle Testing Left Flexion (L2) 5 Normal Abduction 3 Fair Right Flexion (L2) 5 Normal Abduction 3- Fair- Knee Strength Knee Manual Muscle Testing Left Flexion (S2) 5 Normal Extension (L3) 5 Normal Right Flexion (S2) 5 Normal Extension (L3) 5 Normal Ankle/Foot Strength Ankle and Foot Manual Muscle Testing Left Dorsiflexion (L4) 5 Normal Plantarflexion (S1) 5 Normal Inversion 3+ Fair+ Eversion (S1) 5 Normal Right Dorsiflexion (L4) 5 Normal Plantarflexion (S1) 5 Normal Inversion 4 Good Eversion (S1) 5 Normal Toe Strength Toe Manual Muscle Testing Left Great Toe Extension 4 Good Comments Mildly reduced left great toe extension Right Great Toe Comments Pt cannot tolerate MMT right great toe and he presents with reduced great toe extension compared to the left PT-OP-Q Treatments Start: 12/13/20 07:50 Freq: Status: Active Protocol: Document 01/15/21 07:32 MB (Rec: 01/15/21 08:07 MB [id number]) Cardio Equipment Bicycle (Upright) Duration (Minutes) 11 Resistance 9 Seat Position 5 Therapeutic Exercises Supine Exercises Core progression Supine Exercise Name Abd draw in, knee rocking, HS, knee fall out and mini march Side bilateral Comments 5-10 reps Hip rotator stretch Side bilateral Comments 45 sec hold B Norman stretch Side bilateral Comments 45 sec hold B, pelvic tilt and opposite leg bent 7 Supine Exercise Name Pelvic realignment exercises Side bilateral Equipment Used Ball Comments 5 reps all three exercises, three sec hold Sitting Exercises Therapy ball stretching Sitting Exercise Name Pect stretch and thoracic extension over ball Equipment Used 65 cm ball Standing Exercises Posterior hip capsule, hamstring and multifidi stretch Reps/Minutes 1 rep, 1 min Comments Both hands on mat, head up for multifidi, cues to push back into hip capsul PT-OP-T Assessment and Plan Start: 12/13/20 07:50 Freq: Status: Active Protocol: Document 01/15/21 07:32 MB (Rec: 01/15/21 08:07 MB [id number]) Physical Therapy Assessment Goals Five Prison Goal (LTG) Pt will present with an improved LEF score to reflect no more than 20% impairment by 02/24/21. LTG Duration 8 weeks Four Prison Goal (LTG) Pt will perform progressive HEP with I including ROM, flexibility, strengthening and balance exercises to return to normal strength and function by 02/24/21. 01/08/21: norman and HS stretch , pelvic realignment ex, bridge w/ hip abd TB, postural alignment TA and CS neutral hip hinge/squat eccentric tap, band walk, bridge hip abd TB, ball roll sundar cat, elbow plank forrward/ side, prone scorpion LS rotational stretch , TS/ LE rolling review. LTG Duration 8 weeks Three Prison Goal (LTG) Pt will gait train at least 1600 feet in 6 minutes to reflect improved community ambulation by 02/24/21. LTG Duration 8 weeks Two Prison Goal (LTG) Pt will perform 15 reps sit to stand without UE support in 30 sec to improve overall functional mobility and strength by 02/24/21. LTG Duration 8 weeks One Impairment NO HEP in place Prison Goal (LTG) Patient will perform HEP independent and safe. LTG Duration 3 wks. 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 Initiate core training and exercises today. Pt con't to have inability to get to gym and do a lot at home as far as stretches and PT. He will think about getting a therapy ball as he likes them to stretch over. Physical Therapy Plan Frequency and Duration Frequency of Treatment 2x/Week Duration of Treatment 8 weeks Plan of Care Start Date 12/25/20 Plan of Care End Date 02/25/21 Therapeutic Interventions Therapeutic Interventions Balance Training,Canalithic Repositioning,Gait Training, Home Exercise Program,Joint Mobilizations,Manual Therapy, Neuromuscular Re-education, Patient/Caregiver Education, Self-Care/Home Management,Soft Tissue Mobilization,Taping, Therapeutic Activities, Therapeutic Exercises Modalities Cold Pack/Ice Massage,Electric Stimulation,Hot Packs, Ultrasound Next Visit Focus/Plan Next Note Type Treatment Note Next Visit Plan LAQ with ankle around knees and mini wall squat
--- NOTE | 2021-01-17 08:13 | PT.OTN ---
Current Diagnoses Pain in right knee (01/17/21) Physical Therapy Treatment Note PT-OP-A Visit Information Start: 12/13/20 07:50 Freq: Status: Active Protocol: Document 01/17/21 07:33 MB (Rec: 01/17/21 08:13 MB [id number]) Out-Patient Physical Therapy Visit Information Visit Information Visit Type Treatment Note Visit Note Roby, 24 visits Visit Start Time 07:33 Visit Stop Time 08:11 Total Visit Minutes 38 Visit Number 06/11 Precautions Precautions Try to stand on pt's R side d/ t hearing loss L ear PT-OP-B Current Condition Start: 12/13/20 07:50 Freq: Status: Active Protocol: Document 12/25/20 07:28 MB (Rec: 12/25/20 07:30 MB [id number]) Current Condition History of Current Condition Onset Date Long onset Current Complaints Total body pain everyday History of Current Condition 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 Over the years, his knees have bothered him. He feels worn out from his work. He tried running yesterday but it hurt his neck. Pt likes to swim but has not been able to due to the weather and the pool is closed. Pt rates right knee pain as 4-6/10. Pt likes to work out. He goes to a chiropractor and massage therapist for his neck. PMH: concussion and hearing impairment, right hand trauma and fracture, jaw fracture, left shoulder rotator cuff tear and surgery, neck injury and fracture, HTN, back pain, SOB from asthma. Pt is open to trying the upright bike. Pt wears old sneakers for work. Prior Treatments and Tests R knee x-ray 11/14/20: no changes PT in the past for neck and shoulder. PT went well Treatment Goals Patient/Caregiver Goals To decrease right knee pain PT-OP-C Subjective Start: 12/13/20 07:50 Freq: Status: Active Protocol: Document 01/17/21 07:33 MB (Rec: 01/17/21 08:13 MB [id number]) OP-PT Subjective Patient Comments Patient Comments My neck is a little sore today. I slept weird on it last night and I have been to the chiropractor in weeks. PT-OP-D Balance Start: 12/13/20 07:50 Freq: Status: Active Protocol: Document 12/25/20 07:28 MB (Rec: 12/25/20 14:55 MB [id number]) OP-PT Balance Assessment Standing Balance Standing Balance Comments B heavy index finger support against wall for B heel raises , 20 each leg Arriaga Fall Scale Copyright Permission PT-OP-G Mobility & Gait Start: 12/13/20 07:50 Freq: Status: Active Protocol: Document 12/25/20 07:28 MB (Rec: 12/25/20 14:55 MB [id number]) OP Gait Assessment Gait Gait Assistance Required: Independent Distance (Feet) 75 Able to Maintain Weight Bearing Status Yes During Gait Assistive Devices Assistive Device None Orthotic/Prosthetic Devices or Brace: No Gait Deviations General Gait Pattern Antalgic,Decreased Stride Length,Decreased Feet Clearance,Wide Based Gait Factors Limiting Gait Function Factors Limiting Gait Function Decreased Strength,Limited Range of Motion,Pain,Poor Balance Comments Gait Comments Pt presents with wide gait with B knee varus, antalgic pattern with decreased B heel strike, push off and step- length. Right knee is stiffer than the left and he presents with decreased B hip and knee flexion. His posture is sway back and his shoulders are thrown back with gait. Gait assessment with bare feet today. PT-OP-J Posture/Palpation/Skin Start: 12/13/20 07:50 Freq: Status: Active Protocol: Document 12/25/20 07:28 MB (Rec: 12/25/20 15:04 MB [id number]) Posture Evaluation Comments Posture Comments Bare feet: decreased cervical lordosis, decreased thoracic kyphosis, sway back, forward shoulders, left convexity thoracic spine, right iliac crest higher than the left, B foot supination, greater on the right, anterior tilt pelvis, hips forward and shoulders back, knees extended . PT-OP-K Range of Motion Start: 12/13/20 07:50 Freq: Status: Active Protocol: Document 12/25/20 07:28 MB (Rec: 12/25/20 15:04 MB [id number]) Hip Goniometric Range of Motion Hip ROM Limitations Comments Passive SLR: right 70 deg and left 60 deg PT-OP-M Strength Start: 12/13/20 07:50 Freq: Status: Active Protocol: Document 12/25/20 07:28 MB (Rec: 12/25/20 15:04 MB [id number]) Hip Strength Hip Manual Muscle Testing Left Flexion (L2) 5 Normal Abduction 3 Fair Right Flexion (L2) 5 Normal Abduction 3- Fair- Knee Strength Knee Manual Muscle Testing Left Flexion (S2) 5 Normal Extension (L3) 5 Normal Right Flexion (S2) 5 Normal Extension (L3) 5 Normal Ankle/Foot Strength Ankle and Foot Manual Muscle Testing Left Dorsiflexion (L4) 5 Normal Plantarflexion (S1) 5 Normal Inversion 3+ Fair+ Eversion (S1) 5 Normal Right Dorsiflexion (L4) 5 Normal Plantarflexion (S1) 5 Normal Inversion 4 Good Eversion (S1) 5 Normal Toe Strength Toe Manual Muscle Testing Left Great Toe Extension 4 Good Comments Mildly reduced left great toe extension Right Great Toe Comments Pt cannot tolerate MMT right great toe and he presents with reduced great toe extension compared to the left PT-OP-Q Treatments Start: 12/13/20 07:50 Freq: Status: Active Protocol: Document 01/17/21 07:33 MB (Rec: 01/17/21 08:13 MB [id number]) Cardio Equipment Bicycle (Upright) Duration (Minutes) 10 Resistance 9 Seat Position 5 Therapeutic Exercises Supine Exercises Hip rotator stretch Side bilateral Comments 45 sec hold B Norman stretch Side bilateral Comments 45 sec hold B, pelvic tilt and opposite leg bent Sitting Exercises Therapy ball stretching Sitting Exercise Name Pect stretch and thoracic extension over ball Equipment Used 55 and 65 cm ball Comments Pt also performs hamstring and post capsule stretch today holding ball in f Standing Exercises 8 Standing Exercise Name Trauma Release Exercises Comments Performed all exercises with cues and provided handouts PT-OP-T Assessment and Plan Start: 12/13/20 07:50 Freq: Status: Active Protocol: Document 01/17/21 07:33 MB (Rec: 01/17/21 08:13 MB [id number]) Physical Therapy Assessment Goals Five Immunochemist Goal (LTG) Pt will present with an improved LEF score to reflect no more than 20% impairment by 02/24/21. LTG Duration 8 weeks Four Custodial Goal (LTG) Pt will perform progressive HEP with I including ROM, flexibility, strengthening and balance exercises to return to normal strength and function by 02/24/21. 01/08/21: norman and HS stretch , pelvic realignment ex, bridge w/ hip abd TB, postural alignment TA and CS neutral hip hinge/squat eccentric tap, band walk, bridge hip abd TB, ball roll sundar cat, elbow plank forrward/ side, prone scorpion LS rotational stretch , TS/ LE rolling review. LTG Duration 8 weeks Three Custodial Goal (LTG) Pt will gait train at least 1600 feet in 6 minutes to reflect improved community ambulation by 02/24/21. LTG Duration 8 weeks Two Immunochemist Goal (LTG) Pt will perform 15 reps sit to stand without UE support in 30 sec to improve overall functional mobility and strength by 02/24/21. LTG Duration 8 weeks Assessment Summary Assessment Progressed strengthening, balance and flexibility with trauma release exercises so that pt will have some body weight assisted things to do over the next week while he is away. He has increased discomfort in left great and second toe joints with heel raises and some quick fatigue with quad work. Con't progression as pt needs. Physical Therapy Plan Frequency and Duration Frequency of Treatment 2x/Week Duration of Treatment 8 weeks Plan of Care Start Date 12/25/20 Plan of Care End Date 02/25/21 Therapeutic Interventions Therapeutic Interventions Balance Training,Canalithic Repositioning,Gait Training, Home Exercise Program,Joint Mobilizations,Manual Therapy, Neuromuscular Re-education, Patient/Caregiver Education, Self-Care/Home Management,Soft Tissue Mobilization,Taping, Therapeutic Activities, Therapeutic Exercises Modalities Cold Pack/Ice Massage,Electric Stimulation,Hot Packs, Ultrasound Next Visit Focus/Plan Next Note Type Treatment Note Next Visit Plan Add a balance exercise, sitting LAQ with band around ankles, and wall squat with band around knees, consider d/ c in 2-3 treatments
--- NOTE | 2021-01-29 09:17 | PT.OTN ---
Current Diagnoses Pain in right knee (01/29/21) Physical Therapy Treatment Note PT-OP-A Visit Information Start: 12/13/20 07:50 Freq: Status: Active Protocol: Document 01/29/21 07:32 MB (Rec: 01/29/21 08:15 MB [id number]) Out-Patient Physical Therapy Visit Information Visit Information Visit Type Treatment Note Visit Note Roby, 24 visits Visit Start Time 07:32 Visit Stop Time 08:12 Total Visit Minutes 40 Visit Number 07/12 Precautions Precautions Try to stand on pt's R side d/ t hearing loss L ear PT-OP-B Current Condition Start: 12/13/20 07:50 Freq: Status: Active Protocol: Document 12/25/20 07:28 MB (Rec: 12/25/20 07:30 MB [id number]) Current Condition History of Current Condition Onset Date Long onset Current Complaints Total body pain everyday History of Current Condition 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 Over the years, his knees have bothered him. He feels worn out from his work. He tried running yesterday but it hurt his neck. Pt likes to swim but has not been able to due to the weather and the pool is closed. Pt rates right knee pain as 4-6/10. Pt likes to work out. He goes to a chiropractor and massage therapist for his neck. PMH: concussion and hearing impairment, right hand trauma and fracture, jaw fracture, left shoulder rotator cuff tear and surgery, neck injury and fracture, HTN, back pain, SOB from asthma. Pt is open to trying the upright bike. Pt wears old sneakers for work. Prior Treatments and Tests R knee x-ray 11/14/20: no changes PT in the past for neck and shoulder. PT went well Treatment Goals Patient/Caregiver Goals To decrease right knee pain PT-OP-C Subjective Start: 12/13/20 07:50 Freq: Status: Active Protocol: Document 01/29/21 07:32 MB (Rec: 01/29/21 08:15 MB [id number]) OP-PT Subjective Patient Comments Patient Comments Pt mostly had a restful last week. He popped his left hip out yesterday. He did not hear a pop. PT-OP-D Balance Start: 12/13/20 07:50 Freq: Status: Active Protocol: Document 12/25/20 07:28 MB (Rec: 12/25/20 14:55 MB [id number]) OP-PT Balance Assessment Standing Balance Standing Balance Comments B heavy index finger support against wall for B heel raises , 20 each leg Arriaga Fall Scale Copyright Permission PT-OP-G Mobility & Gait Start: 12/13/20 07:50 Freq: Status: Active Protocol: Document 12/25/20 07:28 MB (Rec: 12/25/20 14:55 MB [id number]) OP Gait Assessment Gait Gait Assistance Required: Independent Distance (Feet) 75 Able to Maintain Weight Bearing Status Yes During Gait Assistive Devices Assistive Device None Orthotic/Prosthetic Devices or Brace: No Gait Deviations General Gait Pattern Antalgic,Decreased Stride Length,Decreased Feet Clearance,Wide Based Gait Factors Limiting Gait Function Factors Limiting Gait Function Decreased Strength,Limited Range of Motion,Pain,Poor Balance Comments Gait Comments Pt presents with wide gait with B knee varus, antalgic pattern with decreased B heel strike, push off and step- length. Right knee is stiffer than the left and he presents with decreased B hip and knee flexion. His posture is sway back and his shoulders are thrown back with gait. Gait assessment with bare feet today. PT-OP-J Posture/Palpation/Skin Start: 12/13/20 07:50 Freq: Status: Active Protocol: Document 12/25/20 07:28 MB (Rec: 12/25/20 15:04 MB [id number]) Posture Evaluation Comments Posture Comments Bare feet: decreased cervical lordosis, decreased thoracic kyphosis, sway back, forward shoulders, left convexity thoracic spine, right iliac crest higher than the left, B foot supination, greater on the right, anterior tilt pelvis, hips forward and shoulders back, knees extended . PT-OP-K Range of Motion Start: 12/13/20 07:50 Freq: Status: Active Protocol: Document 12/25/20 07:28 MB (Rec: 12/25/20 15:04 MB [id number]) Hip Goniometric Range of Motion Hip ROM Limitations Comments Passive SLR: right 70 deg and left 60 deg PT-OP-M Strength Start: 12/13/20 07:50 Freq: Status: Active Protocol: Document 12/25/20 07:28 MB (Rec: 12/25/20 15:04 MB [id number]) Hip Strength Hip Manual Muscle Testing Left Flexion (L2) 5 Normal Abduction 3 Fair Right Flexion (L2) 5 Normal Abduction 3- Fair- Knee Strength Knee Manual Muscle Testing Left Flexion (S2) 5 Normal Extension (L3) 5 Normal Right Flexion (S2) 5 Normal Extension (L3) 5 Normal Ankle/Foot Strength Ankle and Foot Manual Muscle Testing Left Dorsiflexion (L4) 5 Normal Plantarflexion (S1) 5 Normal Inversion 3+ Fair+ Eversion (S1) 5 Normal Right Dorsiflexion (L4) 5 Normal Plantarflexion (S1) 5 Normal Inversion 4 Good Eversion (S1) 5 Normal Toe Strength Toe Manual Muscle Testing Left Great Toe Extension 4 Good Comments Mildly reduced left great toe extension Right Great Toe Comments Pt cannot tolerate MMT right great toe and he presents with reduced great toe extension compared to the left PT-OP-Q Treatments Start: 12/13/20 07:50 Freq: Status: Active Protocol: Document 01/29/21 07:32 MB (Rec: 01/29/21 08:15 MB [id number]) Cardio Equipment Bicycle (Upright) Duration (Minutes) 12 Resistance 10 Seat Position 5 Therapeutic Exercises Sitting Exercises Therapy ball stretching Sitting Exercise Name Pect stretch, hamstring, thoracic, neck stretches Equipment Used 55 cm ball Other Exercises HEP review Comments Verbally reviewed pt's HEP and what he should be doing at home Gait Training Gait Activity 6MWT Comments See gait distance under goal today. Pt gait trains throughout treatment with wide SG and increased knee flexion B, mild antalgic gait Manual Therapy Treatment Other Other Manual Treatments MWM left hip rotators and vastus lateralis with pt performing active ER and IR for rotators and HS for vastus lateralis PT-OP-T Assessment and Plan Start: 12/13/20 07:50 Freq: Status: Active Protocol: Document 01/29/21 07:32 MB (Rec: 01/29/21 08:15 MB [id number]) Physical Therapy Assessment Goals Five Detention Goal (LTG) Pt will present with an improved LEF score to reflect no more than 20% impairment by 02/24/21. 01/29/21: LEF score reflects 33 .75% impairment LTG Duration Partially met Four Detention Goal (LTG) Pt will perform progressive HEP with I including ROM, flexibility, strengthening and balance exercises to return to normal strength and function by 02/24/21. 01/29/21: Pt is performing leg stretches, push-ups, sit ups and a little jogging LTG Duration Partially met Three Transmission Line Engineer Goal (LTG) Pt will gait train at least 1600 feet in 6 minutes to reflect improved community ambulation by 02/24/21. 01/29/21: Pt gait trains 1721 feet in 6 minutes and pt reports minimal pain in his left hip and right knee LTG Duration Surpassed goal Two Detention Goal (LTG) Pt will perform 15 reps sit to stand without UE support in 30 sec to improve overall functional mobility and strength by 02/24/21. 01/29/21: Pt performs 17 reps sit to paginator 30 sec LTG Duration Surpassed goal Assessment Summary Assessment Pt has progressed towards LEF and HEP goals since starting PT. He has surpassed sit to stand and 6MWT goals. 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 [place] as he is building his home. Pt and PT agree to stop PT for his knees and keep his account open with plan for him to return to doctor and get order to assess and treat neck and back pain. Pt anticipates being in his new home by March and that may allow more time for him to be compliant with PT HEP and recommendations. Physical Therapy Plan Frequency and Duration Frequency of Treatment Hold until March Duration of Treatment 11 weeks Plan of Care Start Date 01/29/21 Plan of Care End Date 04/17/21 Therapeutic Interventions Therapeutic Interventions Balance Training,Canalithic Repositioning,Gait Training, Home Exercise Program,Joint Mobilizations,Manual Therapy, Neuromuscular Re-education, Patient/Caregiver Education, Self-Care/Home Management,Soft Tissue Mobilization,Taping, Therapeutic Activities, Therapeutic Exercises Modalities Cold Pack/Ice Massage,Electric Stimulation,Hot Packs, Ultrasound Other Referrals/Consults Referrals/Consults Recommended MD order for neck and back pain Next Visit Focus/Plan Next Note Type Progress Note
--- NOTE | 2021-01-29 09:17 | PT.OPPOC ---
Physical, Occupational & Speech Therapy At [facility] Current Diagnoses Pain in right knee (01/29/21) Visit Care Team Role Provider Type ANDREA Pinto Attending Provider Advanced Cardiac Specialist Family Provider Primary Care Provider Referring Provider Specialty: Family Practice Address: [address] [place] [address], [facility] [place], [address] Email: [email or web address] Plan Of Care PT-OP-T Assessment and Plan Start: 12/13/20 07:50 Freq: Status: Active Protocol: Document 01/29/21 07:32 MB (Rec: 01/29/21 08:15 MB [id number]) Physical Therapy Assessment Goals Five Longterm Goal (LTG) Pt will present with an improved LEF score to reflect no more than 20% impairment by 02/24/21. 01/29/21: LEF score reflects 33 .75% impairment LTG Duration Partially met Four Longterm Goal (LTG) Pt will perform progressive HEP with I including ROM, flexibility, strengthening and balance exercises to return to normal strength and function by 02/24/21. 01/29/21: Pt is performing leg stretches, push-ups, sit ups and a little jogging LTG Duration Partially met Three Banquet Steward Goal (LTG) Pt will gait train at least 1600 feet in 6 minutes to reflect improved community ambulation by 02/24/21. 01/29/21: Pt gait trains 1721 feet in 6 minutes and pt reports minimal pain in his left hip and right knee LTG Duration Surpassed goal Two Longterm Goal (LTG) Pt will perform 15 reps sit to stand without UE support in 30 sec to improve overall functional mobility and strength by 02/24/21. 01/29/21: Pt performs 17 reps sit to spring former machine 30 sec LTG Duration Surpassed goal Assessment Summary Assessment Pt has progressed towards LEF and HEP goals since starting PT. He has surpassed sit to stand and 6MWT goals. 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 Pt and PT agree to stop PT for his knees and keep his account open with plan for him to return to doctor and get order to assess and treat neck and back pain. Pt anticipates being in his new home by March and that may allow more time for him to be compliant with PT HEP and recommendations. Physical Therapy Plan Frequency and Duration Frequency of Treatment Hold until March Duration of Treatment 11 weeks Plan of Care Start Date 01/29/21 Plan of Care End Date 04/17/21 Therapeutic Interventions Therapeutic Interventions Balance Training,Canalithic Repositioning,Gait Training, Home Exercise Program,Joint Mobilizations,Manual Therapy, Neuromuscular Re-education, Patient/Caregiver Education, Self-Care/Home Management,Soft Tissue Mobilization,Taping, Therapeutic Activities, Therapeutic Exercises Modalities Cold Pack/Ice Massage,Electric Stimulation,Hot Packs, Ultrasound Other Referrals/Consults Referrals/Consults Recommended MD order for neck and back pain Next Visit Focus/Plan Next Note Type Progress Note Plan of Care Dates Plan of Care Start Date 01/29/21 Plan of Care End Date 04/17/21 Electronically Signed by: Shikha Kline PT 01/29/21 0995 Please Sign and Return: I have reviewed this Plan of Care and certify that the skilled therapy services above are required to meet the patient?s needs. Physician Signature Date Printed Name and Credentials Clinical Instructor Signature Printed Name and Credentials
--- NOTE | 2021-05-06 10:11 | PT-OP ANOTE ---
PT calls pt to check in to see if he thinks if he wants to return to PT this year for another body part as discussed in his last PT appointment. PT put him on hold because he is only allowed 1 eval per year. Pt is unavailable and PT leaves message that need to hear back from him by 05/08/21. If do not hear anything, will d/c PT and PT leaves this information on the message.
--- NOTE | 2021-05-08 08:22 | PT.OPDS ---
Current Diagnoses Pain in right knee (01/29/21) Visit Care Team Role Provider Type ANDREA Pinto Attending Provider Advanced Coupon Redemption Clerk Family Provider Primary Care Provider Referring Provider Specialty: Family Practice Address: [address] [place] [address], [address], [place], [place], [facility] Email: [email or web address] Visit Number Visit Number 07/12 Discharge Summary PT-OP-B Current Condition Start: 12/13/20 07:50 Freq: Status: Active Protocol: Document 12/25/20 07:28 MB (Rec: 12/25/20 07:30 MB [id number]) Current Condition History of Current Condition Onset Date Long onset Current Complaints Total body pain everyday History of Current Condition 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 Over the years, his knees have bothered him. He feels worn out from his work. He tried running yesterday but it hurt his neck. Pt likes to swim but has not been able to due to the weather and the pool is closed. Pt rates right knee pain as 4-6/10. Pt likes to work out. He goes to a chiropractor and massage therapist for his neck. PMH: concussion and hearing impairment, right hand trauma and fracture, jaw fracture, left shoulder rotator cuff tear and surgery, neck injury and fracture, HTN, back pain, SOB from asthma. Pt is open to trying the upright bike. Pt wears old sneakers for work. Prior Treatments and Tests R knee x-ray 11/14/20: no changes PT in the past for neck and shoulder. PT went well Treatment Goals Patient/Caregiver Goals To decrease right knee pain PT-OP-C Subjective Start: 12/13/20 07:50 Freq: Status: Active Protocol: Document 01/29/21 07:32 MB (Rec: 01/29/21 08:15 MB [id number]) OP-PT Subjective Patient Comments Patient Comments Pt mostly had a restful last week. He popped his left hip out yesterday. He did not hear a pop. PT-OP-D Balance Start: 12/13/20 07:50 Freq: Status: Active Protocol: Document 12/25/20 07:28 MB (Rec: 12/25/20 14:55 MB [id number]) OP-PT Balance Assessment Standing Balance Standing Balance Comments B heavy index finger support against wall for B heel raises , 20 each leg Arriaga Fall Scale Copyright Permission PT-OP-G Mobility & Gait Start: 12/13/20 07:50 Freq: Status: Active Protocol: Document 12/25/20 07:28 MB (Rec: 12/25/20 14:55 MB [id number]) OP Gait Assessment Gait Gait Assistance Required: Independent Distance (Feet) 75 Able to Maintain Weight Bearing Status Yes During Gait Assistive Devices Assistive Device None Orthotic/Prosthetic Devices or Brace: No Gait Deviations General Gait Pattern Antalgic,Decreased Stride Length,Decreased Feet Clearance,Wide Based Gait Factors Limiting Gait Function Factors Limiting Gait Function Decreased Strength,Limited Range of Motion,Pain,Poor Balance Comments Gait Comments Pt presents with wide gait with B knee varus, antalgic pattern with decreased B heel strike, push off and step- length. Right knee is stiffer than the left and he presents with decreased B hip and knee flexion. His posture is sway back and his shoulders are thrown back with gait. Gait assessment with bare feet today. PT-OP-J Posture/Palpation/Skin Start: 12/13/20 07:50 Freq: Status: Active Protocol: Document 12/25/20 07:28 MB (Rec: 12/25/20 15:04 MB [id number]) Posture Evaluation Comments Posture Comments Bare feet: decreased cervical lordosis, decreased thoracic kyphosis, sway back, forward shoulders, left convexity thoracic spine, right iliac crest higher than the left, B foot supination, greater on the right, anterior tilt pelvis, hips forward and shoulders back, knees extended . PT-OP-K Range of Motion Start: 12/13/20 07:50 Freq: Status: Active Protocol: Document 12/25/20 07:28 MB (Rec: 12/25/20 15:04 MB [id number]) Hip Goniometric Range of Motion Hip ROM Limitations Comments Passive SLR: right 70 deg and left 60 deg PT-OP-M Strength Start: 12/13/20 07:50 Freq: Status: Active Protocol: Document 12/25/20 07:28 MB (Rec: 12/25/20 15:04 MB [id number]) Hip Strength Hip Manual Muscle Testing Left Flexion (L2) 5 Normal Abduction 3 Fair Right Flexion (L2) 5 Normal Abduction 3- Fair- Knee Strength Knee Manual Muscle Testing Left Flexion (S2) 5 Normal Extension (L3) 5 Normal Right Flexion (S2) 5 Normal Extension (L3) 5 Normal Ankle/Foot Strength Ankle and Foot Manual Muscle Testing Left Dorsiflexion (L4) 5 Normal Plantarflexion (S1) 5 Normal Inversion 3+ Fair+ Eversion (S1) 5 Normal Right Dorsiflexion (L4) 5 Normal Plantarflexion (S1) 5 Normal Inversion 4 Good Eversion (S1) 5 Normal Toe Strength Toe Manual Muscle Testing Left Great Toe Extension 4 Good Comments Mildly reduced left great toe extension Right Great Toe Comments Pt cannot tolerate MMT right great toe and he presents with reduced great toe extension compared to the left PT-OP-T Assessment and Plan Start: 12/13/20 07:50 Freq: Status: Active Protocol: Document 05/08/21 08:22 MB (Rec: 05/08/21 08:22 MB [id number]) Physical Therapy Plan Discharge Physical Therapy Discharge Reasons No Longer Attending PT Discharge Comments PT for knee stopped weeks ago and pt did not call back about his neck. Will d/c PT.
== END 2021-05-08 08:25 | disposition home or self-care (01) ==
LOC: PHYS 07:30
PROVIDERS: Family Provider Internal Medicine; PCP Internal Medicine; Referring Provider Internal Medicine; Visit Provider Internal Medicine
DX: M25.561 Pain in right knee (principal)
CPT/HCPCS: 97110; 97116; 97140; 97161; 97535

== ENCOUNTER → 2021-03-13 08:20 | Outpatient (CLI) | payer OTHER, MEDICAID, SELFPAY ==
[2021-03-13 11:29] LABS: COVID19 -Nasal RAPID Negative (Negative)
== END ==
PROVIDERS: Family Provider Internal Medicine; PCP Internal Medicine; Visit Provider Physician Assistant
DX: Z20.828 Contact with and (suspected) exposure to other viral communicable diseases (principal); Z01.812 Encounter for preprocedural laboratory examination
CPT/HCPCS: 87635

== ENCOUNTER → 2021-05-07 10:06 | Outpatient (CLI) | payer OTHER, MEDICAID, SELFPAY ==
--- NOTE | 2021-05-07 | DI.RAD.S_ITS ---
PROCEDURE: XR FOOT LT MIN 3V INDICATIONS: BILATERAL GREAT TOE PAIN TECHNIQUE: 3 views of the foot were acquired. COMPARISON: None. FINDINGS: Bones: No fractures or dislocations. No suspicious bony lesions. Soft tissues: No tibiotalar joint effusion. Achilles tendon appears normal. 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 Dictated by: Nikolay Andrade M.D. on 05/07/2021 at 12:35 Approved by: Nikolay Andrade M.D. on 05/07/2021 at 12:35
--- NOTE | 2021-05-07 | DI.RAD.S_ITS ---
PROCEDURE: XR FOOT RT MIN 3V INDICATIONS: BILATERAL GREAT TOE PAIN TECHNIQUE: 3 views of the foot were acquired. COMPARISON: None. FINDINGS: Bones: No fractures or dislocations. No suspicious bony lesions. Soft tissues: No tibiotalar joint effusion. Achilles tendon appears normal. IMPRESSION: Minimal 1st MTP joint degenerative change, minimal bunion formation without periarticular erosions. Dictated by: Nikolay Andrade M.D. on 05/07/2021 at 12:35 Approved by: Nikolay Andrade M.D. on 05/07/2021 at 12:36
== END ==
PROVIDERS: Family Provider Internal Medicine; PCP Family Medicine; Referring Provider Family Medicine; Visit Provider Family Medicine
DX: M79.674 Pain in right toe(s) (principal); M79.675 Pain in left toe(s); M19.072 Primary osteoarthritis, left ankle and foot
CPT/HCPCS: 73630

== ENCOUNTER → 2022-09-19 09:42 | Outpatient (CLI) | payer OTHER, MEDICAID, SELFPAY ==
[2022-09-19 11:58] LABS: Add Manual Diff / Slide Review NO; Basophils Absolute Auto 0 /uL (0-100); Basophils Percent Auto 0.4 % (0-2); Eosinophils Absolute Auto 100 /uL (0-450); Eosinophils Percent Auto 1.2 % (2-4); Hematocrit 48.7 % (41-53); Hemoglobin 16.3 g/dL (13.5-17.5); Lymphocytes Absolute Auto 1000 /uL (1100-4500); Lymphocytes Percent Auto 19.2 % (25-40); Mean Corpuscular HGB Conc 33.4 % (30-36); Mean Corpuscular Hemoglobin 29.1 PG (26-34); Mean Corpuscular Volume 87.2 fL (80-100); Monocytes Absolute Auto 400 /uL (0-900); Monocytes Percent Auto 8.7 % (3-14); Neutrophils Absolute Auto 3600 /uL (1500-7000); Neutrophils Percent Auto 70.5 % (50-75); Platelet Count 303 X10^3/uL (150-400); Red Blood Cell Count 5.58 X10^6/uL (4.5-5.9); Red Cell Distribution Width 13.5 % (11.6-14.8); White Blood Cell Count 5.1 X10^3/uL (4.5-11.0)
[2022-09-19 12:17] LABS: Alanine Aminotransferase 89 IU/L (<50); Albumin 4.7 g/dL (3.5-5.0); Albumin Globulin Ratio 1.4 (1.0-2.8); Alkaline Phosphatase 60 U/L (38-126); Aspartate Aminotransferase 61 IU/L (17-59); BUN Creatinine Ratio 24.4 (6-22); Bilirubin Total 0.6 mg/dL (0.2-1.3); Blood Urea Nitrogen 20 mg/dL (9-20); Calcium 9.1 mg/dL (8.4-10.2); Carbon Dioxide 28 mmol/L (22-32); Chloride 100 mmol/L (98-107); Cholesterol 266 mg/dL (140-199); Estimated Glomerular Filt Rate > 60 mL/min (>60); Globulin 3.4 g/dL (1.7-4.1); Glucose 92 mg/dL (70-100); HDL Cholesterol 46 mg/dL (40-60); HEMOLYSIS < 15 (0-50); LDL Cholesterol Calculated 165 mg/dL (<100); Potassium 4.1 mmol/L (3.4-5.1); Sodium 137 mmol/L (137-145); Total Protein 8.1 g/dL (6.3-8.2); Triglycerides 275 mg/dL (35-150)
[2022-09-19 13:11] LABS: TSH w/ Reflex to FT4 1.47 uIU/mL (0.47-4.68)
== END ==
PROVIDERS: Family Provider Internal Medicine; PCP Family Medicine; Referring Provider Family Medicine; Visit Provider Family Medicine
DX: Z13.220 Encounter for screening for lipoid disorders (principal); Z13.29 Encounter for screening for other suspected endocrine disorder; I10 Essential (primary) hypertension
CPT/HCPCS: 36415; 80053; 80061; 84443; 85025

== ENCOUNTER → 2023-08-01 09:34 | Outpatient (CLI) | payer OTHER, SELFPAY ==
--- NOTE | 2023-08-01 09:36 | DI.RAD.S_ITS ---
PROCEDURE: XR CERVICAL SPINE 2V OR 3V INDICATIONS: chronic neck pain TECHNIQUE: 3 view(s) of the cervical spine were acquired. COMPARISON: [facility], CR, CERVICAL SPINE 2 OR 3 VIEWS, 02/11/2018, 10:38. [facility], CT, CT CERVICAL SPINE WO CON, 09/28/2018, 11:32. FINDINGS: Bones: Lateral view extends from the skull base to C6. No acute fracture. C5-C6 prosthetic disc is intact with no perihardware lucency to suggest hardware loosening. Alignment is anatomic and similar to the prior CT. Mild degenerative changes at C4-C5. The lateral masses of C1 appear intact on the odontoid view. No suspicious bony lesions. Soft tissues: No prevertebral soft tissue swelling. Visualized lung apices are clear. IMPRESSION: 1. No acute fracture. 2. C5-C6 prosthetic disc is intact without complication. Stable alignment. 3. Mild degenerative changes at C4-C5. Dictated by: Senia Sanders M.D. on 08/01/2023 at 13:44 Approved by: Senia Sanders M.D. on 08/01/2023 at 13:49
[2023-08-01 10:42] LABS: HEMOLYSIS < 15 (0-50)
[2023-08-01 10:49] LABS: Alanine Aminotransferase 59 IU/L (<50); Albumin 4.4 g/dL (3.5-5.0); Albumin Globulin Ratio 1.5 (1.0-2.8); Alkaline Phosphatase 58 U/L (38-126); Aspartate Aminotransferase 36 IU/L (17-59); Bilirubin Total 0.4 mg/dL (0.2-1.3); Bilirubin Unconjugated 0.3 mg/dL (0.0-1.1); Gamma Glutamyl Transpeptidase 59 U/L (15-73); Globulin 2.9 g/dL (1.7-4.1); Total Protein 7.3 g/dL (6.3-8.2)
[2023-08-01 11:31] LABS: HIV 1 & 2 Ab/Ag 4th Gen Combo NEGATIVE (NEGATIVE); Hep C Virus Ab w/Reflex Quant NEGATIVE s/c (NEGATIVE); Hepatitis B Surface Antigen NEGATIVE s/c (NEGATIVE)
[2023-08-03 09:22] LABS: Hepatitis B Surf Ab Qualitativ Non Reactive (.)
[2023-08-04 16:21] LABS: Prostate Specific Antigen Scrn 0.285 ng/mL (0.1-4.0)
== END ==
PROVIDERS: Family Provider Internal Medicine; PCP Family Medicine; Referring Provider Family Medicine; Visit Provider Family Medicine
DX: M54.2 Cervicalgia (principal); G89.29 Other chronic pain; R79.89 Other specified abnormal findings of blood chemistry; Z11.59 Encounter for screening for other viral diseases; Z53.20 Procedure and treatment not carried out because of patient's decision for unspecified reasons; Z12.5 Encounter for screening for malignant neoplasm of prostate; Z98.1 Arthrodesis status
CPT/HCPCS: 36415; 72040; 80076; 82977; 86706; 86803; 87340; 87389; G0103

== ENCOUNTER → 2024-02-23 07:06 | Outpatient (CLI) | payer OTHER, SELFPAY ==
[2024-02-23 09:47] LABS: Hemoglobin A1C% w Est Avg Glu 5.8 % (4.0-6.0)
[2024-02-23 10:06] LABS: Alanine Aminotransferase 38 IU/L (<50); Albumin 4.8 g/dL (3.5-5.0); Albumin Globulin Ratio 1.8 (1.0-2.8); Alkaline Phosphatase 57 U/L (38-126); Aspartate Aminotransferase 32 IU/L (17-59); BUN Creatinine Ratio 19.5 (6-22); Bilirubin Total 0.9 mg/dL (0.2-1.3); Blood Urea Nitrogen 17 mg/dL (9-20); Calcium 9.7 mg/dL (8.4-10.2); Carbon Dioxide 29 mmol/L (22-32); Chloride 100 mmol/L (98-107); Cholesterol 168 mg/dL (140-199); Estimated Glomerular Filt Rate > 60 mL/min (>60); Globulin 2.6 g/dL (1.7-4.1); Glucose 88 mg/dL (70-100); HDL Cholesterol 67 mg/dL (40-60); HEMOLYSIS < 15 (0-50); LDL Cholesterol Calculated 69 mg/dL (<100); Potassium 4.7 mmol/L (3.4-5.1); Sodium 135 mmol/L (137-145); Total Protein 7.4 g/dL (6.3-8.2); Triglycerides 162 mg/dL (35-150)
[2024-02-23 10:37] LABS: Prostate Specific Antigen Scrn 0.311 ng/mL (0.1-4.0)
== END ==
PROVIDERS: Family Provider Internal Medicine; PCP Family Medicine; Referring Provider Family Medicine; Visit Provider Family Medicine
DX: Z00.00 Encounter for general adult medical examination without abnormal findings (principal); Z12.5 Encounter for screening for malignant neoplasm of prostate; I10 Essential (primary) hypertension; E78.2 Mixed hyperlipidemia; F41.9 Anxiety disorder, unspecified
CPT/HCPCS: 36415; 80053; 80061; 83036; G0103

== ENCOUNTER → 2024-05-01 08:52 | Outpatient (CLI) | payer OTHER, SELFPAY ==
--- NOTE | 2024-05-01 08:54 | DI.MRI.S_ITS ---
PROCEDURE: MR CERVICAL SPINE WO CON INDICATIONS: Cervical radiculopathy TECHNIQUE: Noncontrast sagittal T1 spin echo and T2 fast spin echo, sagittal STIR, foraminal oblique sagittal T2 fast spin echo, and axial gradient echo or T2 fast spin echo through the cervical spine. COMPARISON: [facility], CR, XR CERVICAL SPINE 2V OR 3V, 08/01/2023, 9:51. [facility], CT, CT CERVICAL SPINE WO CON, 09/28/2018, 11:32. [facility], MR, MR CERVICAL SPINE WITHOUT CONTRAST, 07/30/2017, 8:05. FINDINGS: Image quality: Excellent. Alignment and Curvature: There is normal bony alignment. Disc prosthesis C5-C6. Bone Marrow: Marrow demonstrates normal overall signal. Spinal Cord: Visualized spinal cord has normal size and signal. No cerebellar tonsillar herniation. Paraspinous Soft Tissues: No paravertebral masses. Prevertebral soft tissues are normal in thickness. C2-C3: No canal stenosis or foraminal stenosis. C3-C4: Disc bulge. Mild canal stenosis. AP diameter of the central canal is 9.1 mm. Reference axial image 22 of series 4. Bilateral facet hypertrophy and uncovertebral joint hypertrophy. Mild right foraminal narrowing. Moderate to severe left foraminal narrowing with a degree of left foraminal C4 nerve root impingement. C4-C5: Minimal disc bulge. No canal stenosis. AP diameter of the central canal is 11.3 mm. Bilateral uncovertebral joint hypertrophy and facet hypertrophy. Moderate to severe left foraminal narrowing with a degree of left foraminal C5 nerve root impingement. C5-C6: Disc prosthesis. Posterior osteophyte is seen on the CT, eccentric to the left. Moderate canal stenosis. AP diameter of the central canal is 8.5 mm. Reference axial image 31 of series 4. Mild bilateral foraminal stenosis. C6-C7: Disc bulge. Borderline canal stenosis. AP diameter of the central canal is 9.9 mm. No significant foraminal stenosis. C7-T1: Normal appearance. IMPRESSION: 1. Disc prosthesis present at C5-C6, placed after the previous MRI. 2. Canal stenosis is mild at C3-C4 and moderate at C5-C6. 3. Multilevel foraminal narrowing as described above. Findings include moderate to severe left foraminal narrowing at C3-C4 and C4-C5. Dictated by: Jose Xie M.D. on 05/02/2024 at 10:55 Approved by: Jose Xie M.D. on 05/02/2024 at 11:07
== END ==
PROVIDERS: Family Provider Internal Medicine; PCP Family Medicine; Referring Provider Physical Medicine & Rehabilitation; Visit Provider Physical Medicine & Rehabilitation
DX: M54.12 Radiculopathy, cervical region (principal); M48.02 Spinal stenosis, cervical region; Z98.890 Other specified postprocedural states
CPT/HCPCS: 72141

== ENCOUNTER 2024-12-27 08:35 | Outpatient (CLI) | payer OTHER, SELFPAY ==
[2024-12-27] VITALS (9 sets, daily range): BP systolic 102–112; BP diastolic 54–75; PULSE 97–111; RESP 16–19; TEMP 36.2; O2SAT 94–99
[2024-12-27] MEDS: MIDAZOLAM 2 MG/2 ML VIAL IV (09:42)
[2024-12-27] MEDS: DEXAMETHASONE 10 MG/ML VIAL 20 MG INJ (09:46)
[2024-12-27] MEDS: iopamidoL 15 ML VIAL 3 ML INJ (09:46)
[2024-12-27] MEDS: BUPIVACAINE 0.25% (PF) VIAL 2 ML INJ (09:47)
--- NOTE | 2024-12-27 10:02 | P.PCN_ITS ---
Date/Time/Diagnoses Date of procedure: 12/27/24 Time of procedure: 10:02 Pre-procedure diagnosis: 1. CERVICAL STENOSIS, 2. CERVICAL HNP WITH UPPER EXTREMITY RADICULAR FEATURES Post-procedure diagnosis: same Procedure Notes Procedure: 1. FLUORSCOPICALLY GUIDED CONTRAST CONTROLLED INTERLAMINAR EPIDURAL STEROID INJECTION - C6/7 TL KERI Indications: Francisco is referred by Dr. Del Cid for treatment of Cervical HNP with Upper Extremity Paresthesias. Physician: Serjio Bravo Total Fluoroscopy time (seconds): 46 Total sedation minutes: 16 Complications: none Procedure in detail & Post-procedure care: FINDINGS Cervical Stenosis due to disc deterioration and nerve root irritation and nerve root irritation DESCRIPTION OF PROCEDURE Fluoroscopically guided, contrast-controlled C6/7 translaminar epidural steroid injection with conscious sedation. Following review of allergy and review of potential side effects and complications, including, but not necessarily limited to, infection, allergic reaction, local tissue breakdown, temporary as well as permanent nerve injury, stroke, paralysis, and possible , the patient indicated that patient understood and agreed to proceed. An informed consent document was signed by the patient, witnessed by a nurse, and placed in the patient's chart. Additionally, other treatment options including modalities, medications, and physical therapy were reviewed with the patient. After review of previous anaesthesic history and IV conscious sedation the patient was deemed safe to proceed with today?s procedure with IV conscious sedation as ASA class II designation. Safety time-out was performed to confirm patient ID, procedure to be performed and site of procedure. IV sedation was accomplished with a combination of 2mg of Versed administered by the RN after DO order, titrated to patient comfort during the course of the procedure while the patient remained responsive to all verbal commands. In the prone position, following sterile prep and drape of the cervical region, the C6/7 translaminar space was identified fluoroscopically. The skin was anesthetized via a 25-gauge 1.5-inch needle with 1% lidocaine solution. At this point, a 25-gauge, 2.5-inch short bevel spinal needle was atraumatically introduced and advanced under fluoroscopic guidance into epidural space at the C6/7 translaminar space. Depth was confirmed on lateral view. Radiological data, including multiple fluoroscopic views of the cervical spine, reveal a spinal needle at the C6/7 translaminar space. Lateral views then show placement of the needle in the epidural space. Subsequent views show contrast material flowing superiorly and inferiorly in the epidural space. DSA fluoroscopy with live contrast injection, once again, confirmed no vascular or intrathecal uptake. At this point, using loss of resistance technique with saline and air, the epidural space was entered. Following negative aspiration, injection of approximately 1.5 cc of Isovue-200 with live fluoroscopy in the AP view confirmed epidural flow in the epidural space without vascular or intrathecal uptake observed. Subsequently, a test dose of 1 cc of 1% lidocaine solution was injected and patient was observed for two minutes without signs or symptoms of complications, including abdominal pain, shortness of breath, bilateral upper or lower extremity weakness, nausea and vomiting, prior to steroid injection. At this point, 2cc or 20mg of dexamethasone was then injected without incident. The patient tolerated the procedure well without signs or symptoms of comp lications prior to being transferred to the recovery area for further monitoring, The patient was then transferred to the recovery area where they were observed for an appropriate period of time after the injection. The patient reported a VAS score of 6 prior to the procedure and a post-procedure VAS of 0. POST OP INSTRUCTIONS The patient was provided a Pain Log to continue to record their response to the target-specific procedure prior to follow-up visit with the referring provider. Additionally, specific post-injection care instructions and a contact number to our office were provided if concerns arise regarding possible complications associated with the procedure are suspected.
== END 2024-12-27 10:21 | disposition home or self-care (01) ==
PROVIDERS: Family Provider Internal Medicine; PCP Family Medicine; Referring Provider Physical Medicine & Rehabilitation; Visit Provider Physical Medicine & Rehabilitation
DX: M48.02 Spinal stenosis, cervical region (principal); M50.123 Cervical disc disorder at C6-C7 level with radiculopathy
CPT/HCPCS: 64479; 99152; J1100; J2250; J3490

== ENCOUNTER → 2025-01-02 08:43 | Outpatient (CLI) | payer OTHER, SELFPAY ==
[2025-01-02 09:19] LABS: Hemoglobin A1C% w Est Avg Glu 5.5 % (4.0-6.0)
== END ==
LOC: LAB 08:44
PROVIDERS: Family Provider Internal Medicine; PCP Family Medicine; Referring Provider Family Medicine; Visit Provider Family Medicine
DX: R73.01 Impaired fasting glucose (principal)
CPT/HCPCS: 36415; 83036

== ENCOUNTER 2025-09-26 08:47 | Outpatient (CLI) | payer OTHER, SELFPAY ==
[2025-09-26] VITALS (8 sets, daily range): BP systolic 113–133; BP diastolic 7–81; PULSE 78–86; RESP 13–20; TEMP 36.3; O2SAT 94–99
[2025-09-26] MEDS: MIDAZOLAM 2 MG/2 ML VIAL IV (09:26)
--- NOTE | 2025-09-26 09:44 | P.PCN_ITS ---
Date/Time/Diagnoses Date of procedure: 09/26/25 Time of procedure: 09:44 Pre-procedure diagnosis: 1. CERVICAL STENOSIS, 2. CERVICAL HNP WITH UPPER EXTREMITY RADICULAR FEATURES Post-procedure diagnosis: same Procedure Notes Procedure: 1. FLUORSCOPICALLY GUIDED CONTRAST CONTROLLED INTERLAMINAR EPIDURAL STEROID INJECTION - C6/7 TL KERI Indications: Francisco is referred by Dr. Del Cid for treatment of Cervical HNP with Upper Extremity Paresthesias. Physician: Serjio Bravo Total Fluoroscopy time (seconds): 27 Total sedation minutes: 12 Complications: none Procedure in detail & Post-procedure care: FINDINGS Cervical Stenosis due to disc deterioration and nerve root irritation and nerve root irritation DESCRIPTION OF PROCEDURE Fluoroscopically guided, contrast-controlled C6/7 translaminar epidural steroid injection with conscious sedation. Following review of allergy and review of potential side effects and complications, including, but not necessarily limited to, infection, allergic reaction, local tissue breakdown, temporary as well as permanent nerve injury, stroke, paralysis, and possible , the patient indicated that patient understood and agreed to proceed. An informed consent document was signed by the patient, witnessed by a nurse, and placed in the patient's chart. Additionally, other treatment options including modalities, medications, and physical therapy were reviewed with the patient. After review of previous anaesthesic history and IV conscious sedation the patient was deemed safe to proceed with today?s procedure with IV conscious sedation as ASA class II designation. Safety time-out was performed to confirm patient ID, procedure to be performed and site of procedure. IV sedation was accomplished with a combination of 2mg of Versed administered by the RN after DO order, titrated to patient comfort during the course of the procedure while the patient remained responsive to all verbal commands. In the prone position, following sterile prep and drape of the cervical region, the C6/7 translaminar space was identified fluoroscopically. The skin was anesthetized via a 25-gauge 1.5-inch needle with 1% lidocaine solution. At this point, a 25-gauge, 2.5-inch short bevel spinal needle was atraumatically introduced and advanced under fluoroscopic guidance into epidural space at the C6/7 translaminar space. Depth was confirmed on lateral view. Radiological data, including multiple fluoroscopic views of the cervical spine, reveal a spinal needle at the C6/7 translaminar space. Lateral views then show placement of the needle in the epidural space. Subsequent views show contrast material flowing superiorly and inferiorly in the epidural space. DSA fluoroscopy with live contrast injection, once again, confirmed no vascular or intrathecal uptake. At this point, using loss of resistance technique with saline and air, the epidural space was entered. Following negative aspiration, injection of approximately 1.5 cc of Isovue-200 with live fluoroscopy in the AP view confirmed epidural flow in the epidural space without vascular or intrathecal uptake observed. Subsequently, a test dose of 1 cc of 1% lidocaine solution was injected and patient was observed for two minutes without signs or symptoms of complications, including abdominal pain, shortness of breath, bilateral upper or lower extremity weakness, nausea and vomiting, prior to steroid injection. At this point, 3cc or 30mg of dexamethasone was then injected without incident. The patient tolerated the procedure well without signs or symptoms of comp lications prior to being transferred to the recovery area for further monitoring, The patient was then transferred to the recovery area where they were observed for an appropriate period of time after the injection. The patient reported a VAS score of 6 prior to the procedure and a post-procedure VAS of 0. POST OP INSTRUCTIONS The patient was provided a Pain Log to continue to record their response to the target-specific procedure prior to follow-up visit with the referring provider. Additionally, specific post-injection care instructions and a contact number to our office were provided if concerns arise regarding possible complications associated with the procedure are suspected.
== END 2025-09-26 10:03 | disposition home or self-care (01) ==
LOC: RAD 08:47
PROVIDERS: PCP Family Medicine; Referring Provider Family Medicine; Visit Provider Physical Medicine & Rehabilitation
DX: M48.02 Spinal stenosis, cervical region (principal); M50.123 Cervical disc disorder at C6-C7 level with radiculopathy
CPT/HCPCS: 62321; 99152; J1100; J2250

== ENCOUNTER → 2025-10-04 06:56 | Outpatient (CLI) | payer OTHER, SELFPAY ==
[2025-10-04 08:26] LABS: Alanine Aminotransferase 44 IU/L (<50); Albumin 4.7 g/dL (3.5-5.0); Albumin Globulin Ratio 1.7 (1.0-2.8); Alkaline Phosphatase 62 U/L (38-126); Blood Urea Nitrogen 32 mg/dL (9-20); Calcium 9.2 mg/dL (8.4-10.2); Carbon Dioxide 26 mmol/L (22-32); Chloride 98 mmol/L (98-107); Cholesterol 160 mg/dL (140-199); Estimated Glomerular Filt Rate > 60 mL/min (>60); Globulin 2.7 g/dL (1.7-4.1); Glucose 88 mg/dL (70-99); HDL Cholesterol 45 mg/dL (40-60); HEMOLYSIS < 15 (0-50); Sodium 133 mmol/L (137-145); Total Protein 7.4 g/dL (6.3-8.2); Triglycerides 181 mg/dL (35-150)
[2025-10-04 08:31] LABS: Potassium 5.9 mmol/L (3.4-5.1)
== END ==
PROVIDERS: PCP Family Medicine; Referring Provider Family Medicine; Visit Provider Family Medicine
DX: Z12.5 Encounter for screening for malignant neoplasm of prostate (principal); E78.2 Mixed hyperlipidemia; I10 Essential (primary) hypertension; R73.01 Impaired fasting glucose
CPT/HCPCS: 36415; 80053; 80061; G0103